=== PATIENT | male | born 1960 | race African-American/Black ===

== ENCOUNTER 2017-12-30 10:08 | Observation (INO) | payer MEDICARE ==
[2017-12-30] MEDS ORDERED: Nitroglycerin 2% Ointment 1 INCH/1 GM Packet ONE (10:33)
--- NOTE | 2017-12-30 11:02 | RAD ---
CHEST ONE VIEW: HISTORY: Chest pain. COMPARISON: 09/16/2016 FINDINGS: The cardiac silhouette is magnified and at the upper limits of normal in size. The pulmonary vascula ture is now engorged with bilateral perihilar infiltrates and peribronchial cuffing. No lobar consol idation or evidence of pneumothorax. IMPRESSION: 1. Pulmonary vascular congestion/borderline edema. 2. Borderline cardiomegaly. POS: [facility]
[2017-12-30 12:07] LABS: CKMB 3.7 ng/mL (0-6.6)
[2017-12-30 12:11] LABS: ALT (SGPT) 51 U/L (8-55); AST (SGOT) 34 U/L (5-34); Albumin 4.2 g/dL (3.5-5.0); Alkaline Phosphatase 76 U/L (40-150); Anion Gap 26 mmol/L (10-20); BUN (Urea Nitrogen) 99 mg/dL (8.4-25.7); Bilirubin, Total 0.7 mg/dL (0.2-1.2); CK (CPK) 102 U/L (30-200); Calc. Creatinine Clearance 0 mL/min (70-130); Calcium 9.2 mg/dL (7.8-10.44); Carbon Dioxide 19 mmol/L (22-29); Chloride 100 mmol/L (98-107); Estimated GFR-MDRD 4; Globulin 4.3 g/dL (2.4-3.5); Glucose 140 mg/dL (70-105); Lipase 76 U/L (8-78); Magnesium 2.1 mg/dL (1.6-2.6); Phosphorus 7.2 mg/dL (2.3-4.7); Potassium 5.8 mmol/L (3.5-5.1); Protein, Total 8.5 g/dL (6.0-8.3)
[2017-12-30 12:13] LABS: Base Excess-Venous -3.1 mmol/L (0 (+/- 2.5)); Bicarbonate (HCO3v) 22.7 mmol/L (1.0-85.0); CO2 Tension (PvCO2) 42.3 mmHg (41.0-51.0); Calcium, Ionized 0.96 mmol/L (1.12-1.32); Hemoglobin - Calc 11.5 g/dL (12.0-18.0); Lactate 1.21 mmol/L (0.50-2.20); O2 Tension (PvO2) 115.3 mmHg (35.0-45.0); Potassium 5.5 mmol/L (3.4-4.7); pH (Venous) 7.337 (7.35-7.45); vO2 Saturation-calc 98.2 % (94-98)
[2017-12-30 12:27] LABS: Sodium 139 mmol/L (136-145)
[2017-12-30] MEDS ORDERED: Furosemide 40 MG/4 ML VIAL ONE (12:33)
[2017-12-30 12:40] LABS: #Eosinphils 0.2 thou/uL (0.0-0.7); #Lymphocytes 1.8 thou/uL (1.20-3.40); #Monocytes 0.4 thou/uL (0.11-0.59); #Neutrophils 4.6 thou/uL (1.40-6.50); %Basophils 0.1 % (0.0-1.0); %Lymphocytes 25.1 % (21.0-51.0); %Monocytes 6.1 % (0.0-10.0); %Neutrophils 65.7 % (42.0-75.0); Hemoglobin 10.1 g/dL (14.0-18.0); Mean Corpuscular HGB CONC 31.4 g/dL (32.0-36.0); Mean Corpuscular Hemoglobin 29.9 pg (27.0-31.0); Mean Corpuscular Volume 95.4 fL (78.0-98.0); Platelet Count 182 thou/uL (130-400); RBC Distribution Width 15.5 % (11.5-14.5); Red Blood Cell (RBC) Count 3.37 mill/uL (4.70-6.10)
[2017-12-30 15:28] LABS: Troponin I 0.093 ng/mL (< 0.028)
[2017-12-30 15:42] LABS: HBSAg Index 0.43 S/CO (0-0.99); Hep B Surf Ag Non-Reactive S/CO (NonReactive)
[2017-12-30] MEDS ORDERED: HumaLOG 300 UNITS/3 ML VIAL SC PRN ×2 (17:21)
[2017-12-30] MEDS ORDERED: Dextrose 50% Abboject 50 ML SYRINGE SLOW IVP PRN (17:21)
[2017-12-30] MEDS ORDERED: cloNIDine 0.1 MG TAB PO PRN (17:21)
[2017-12-30] MEDS ORDERED: Mometasone/Formoterol 120 PUFF INHALER INH PRN (17:21)
[2017-12-30] MEDS ORDERED: Ondansetron ODT 4 MG TAB PO PRN (17:21)
[2017-12-30] MEDS ORDERED: Dextrose 5% in Water 1,000 ML IV PRN (17:21)
[2017-12-30] MEDS ORDERED: hydrALAZINE 20 MG/ML VIAL SLOW IVP PRN (17:21)
[2017-12-30] MEDS ORDERED: Acetaminophen 500 MG TAB PO PRN (17:21)
[2017-12-30] MEDS ORDERED: Ondansetron HCl/PF 4 MG/2 ML Vial IVP PRN (17:21)
[2017-12-30 18:10] LABS: Troponin I 0.095 ng/mL (< 0.028)
[2017-12-30 19:39] VITALS: BMI 31.8
--- NOTE | 2017-12-30 20:59 | HP ---
DATE OF ADMISSION: 12/30/2017 PRIMARY CARE PHYSICIAN: Dr. Berger with [facility]. PRIMARY LIFE AGENT: Lm Lo M.D. CHIEF COMPLAINT: Chest pain and shortness of breath. HISTORY OF PRESENT ILLNESS: This is a 57-year-old male with a known history of end- stage renal disease, on hemodialysis over the last 5 years, presenting with chest pain and shortness of breath in the last 48 hours. The patient states he underwent partial hemodialysis 2 days prior to this evaluation after apparently having obstruction or occlusion of his right upper extremity AV fis earnest. The patient states he underwent procedure to declot and open his graft proceeding with the com pletion of his hemodialysis; however, the total duration of hemodialysis were shortened. The patient admitted increased difficulty with breathing substernal chest tightness and subjective shortness of breath. The patient denied any specific fever, chills, recent trauma, injury or exposure history. T he patient states he has not missed any dialysis sessions over the last 5 years. The patient denied any increased lower extremity swelling, but did state the shortness of breath was worse when lying fl at. In the emergency room, the patient underwent general evaluation including chest imaging showing bilateral pulmonary edema. The patient received IV Lasix 80 mg x1 dose and transdermal nitroglycerin . The patient was transferred to dialysis unit for urgent hemodialysis. PAST MEDICAL HISTORY: 1. End-stage renal disease with hemodialysis Thursday, Thursday, and Thursday. 2. Hypertension. 3. Diabetes mellitus type 2. 4. Coronary artery disease, status post cardiac stent placement x10. 5. Bilateral cataracts. 6. Systolic congestive heart failure with ejection fraction of 35% range. PAST SURGICAL HISTORY: 1. Status post cardiac stent placement x10. 2. Status post right upper extremity AV fistula placement. 3. Status post right great toe amputation. 4. Status post right third through fifth toe amputations. CURRENT MEDICATIONS: Reviewed from previous admission in 2017. 1. Enteric coated aspirin 81 mg 1 tab p.o. daily. 2. Lipitor 40 mg p.o. daily. 3. Symbicort metered dose inhaler 160/4.5, 1-2 puffs daily. 4. Carvedilol 3.125 mg p.o. b.i.d. 5. Sensipar 1 tablet p.o. daily. 6. Gabapentin 300 mg p.o. t.i.d. 7. Regular insulin 9 units subcutaneously b.i.d. with meals. 8. Lisinopril 10 mg 1 tab p.o. daily. 9. Effient 10 mg p.o. daily. 10. Renvela 1 tablet p.o. t.i.d. 11. Protonix 40 mg 1 tab p.o. daily. ALLERGIES: PENICILLIN. FAMILY HISTORY: Positive for lung cancer in his mother. Multiple family members with diabetes frannie burroughs and hypertension. SOCIAL HISTORY: The patient is , residing in the [facility]. 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 REVIEW OF SYSTEMS: The following complete review of systems was negative, unless otherwise mentioned in the HPI or below: Constitutional: Weight loss or gain, ability to conduct usual activities. Skin: Rash, itching. Eyes: Double vision, pain. ENT/Mouth: Nose bleeding, neck stiffness, pain, tenderness. Cardiovascular: Palpitations, dyspnea on exertion, orthopnea. Respiratory: Shortness of breath, wheezing, cough, hemoptysis, fever or night sweats. Gastrointestinal: Poor appetite, abdominal pain, heartburn, nausea, vomiting, constipation, or diarrhea. Genitourinary: Urgency, frequency, dysuria, nocturia. Musculoskeletal: Pain, swelling. Neurologic/Psychiatric: Anxiety, depression. Allergy/Immunologic: Skin rash, bleeding tendency. PHYSICAL EXAMINATION: VITAL SIGNS: In the emergency room, blood pressure 150/90, pulse 90, respiratory rate 19, temperatur e 98.2 degrees Fahrenheit, O2 saturation 96% on room air. GENERAL APPEARANCE: This is a 57-year-old male currently receiving hemodialysis. A lert and oriented x3, in no acute distress. HEENT: Pupils are equal, round, and reactive to light and accommodation. Extraocular muscles are in tact. No scleral icterus. No conjunctival injection. Nares patent. OP is clear. Teeth in fair re pair. NECK: Supple, no cervical adenopathy, no thyromegaly, no carotid bruits, no JVD appreciated. Cervic al spine with full active and passive range of motion. No meningeal signs noted. CHEST: Few bibasilar crackles noted. CARDIOVASCULAR: S1, S2 without noted murmur, rub or gallop. ABDOMEN: Rounded, soft, nontender, nondistended. Bowel sounds are positive in all four quadrants. There is no hepatosplenomegaly, no abdominal bruits, no rebound or guarding appreciated. EXTREMITIES: Warm and dry with fair turgor. No clubbing, cyanosis or asymmetric edema appreciated. Pulses palpable distally at the dorsalis pedis, posterior tibial, and popliteal arteries bilaterally . Post-surgical changes noted in the right foot, consistent with prior surgical history. NEUROLOGIC: Cranial nerves II-XII are grossly intact. No focal or lateralizing signs appreciated. PERTINENT LABORATORY AND X-RAY FINDINGS: Sodium 139, potassium 5.8, chloride 100, CO2 of 19, BUN 99, creatinine 14.95. Estimated GFR of 3. Venous lactate 1.21, phosphorus 7.2. LFTs within normal orozco its. Troponin I ranged between 0.090-0.093. BNP 2471, previously noted 3092 on 09/12/2016. Lipase 76. CBC showed a white blood cell count of 7.0, hemoglobin 10, hematocrit 32, platelet count 182 wit h normal differential. Hepatitis B surface antigen nonreactive on 12/30/2017. Portable chest x-ray dated 12/30/2017, showed bilateral pulmonary edema. EKG dated on 12/30/2017, by my interpretation sh ows sinus mechanism with heart rates in the 90s. Normal R-wave progression noted in the precordial l mandeep. Normal axis. No acute ST-T wave changes appreciated. ASSESSMENT AND PLAN: 1. Acute pulmonary edema secondary to volume overload. The patient will be observed on the telemetr y unit. The patient's presentation in the context of end-stage renal disease with hemodialysis. We will continue urgent hemodialysis at the direction of the Nephrology Service. Continue serial pulmo nary exams. 2. End-stage renal disease with hemodialysis. We will continue hemodialysis as outlined in #1. The patient likely volume overloaded in the context of partial hemodialysis performed 48 hours prior to this evaluation. 3. Hyperkalemia. Continue hemodialysis as outlined in #1 and #2. 4. Serial potassium . 5. Elevated troponin I secondary to demand ischemia. The patient with longstanding chronic troponin I elevation. No current evidence to suggest acute coronary syndrome. We will continue home medicat ion regimen to include enteric-coated aspirin 81 mg daily. 6. Chronic systolic congestive heart failure. We will repeat 2D transthoracic echocardiogram with l ast reported echocardiogram in 2017. 7. Diabetes mellitus type 2. Insulin sliding scale for reflexive coverage. Confirm home diabetic r egimen. 8. Accu-Cheks a.c. and at bedtime. ADA diet. 9. Chest pain. Suspect secondary to acute volume overload as stated in #1. No current evidence to suggest acute coronary syndrome. We will continue supportive management and resume home medication r egimen including aspirin. 10. Prophylaxis. Sequential compression devices while in bed. Pepcid 20 mg p.o. b.i.d. 11. Code status is FULL. Surrogate medical decision maker is patient's spouse.
[2017-12-30] MEDS ORDERED: Famotidine 20 MG TAB PO SCH (21:00)
[2017-12-30] MEDS: Gabapentin 300 MG CAP PO SCH (21:26)
[2017-12-30] MEDS ORDERED: Midodrine HCl 5 MG TAB PO PRN (21:29)
[2017-12-30] MEDS: HYDROcodone/Acetaminophen 10/325 mg Tablet PO PRN (22:01)
[2017-12-31] MEDS: HYDROcodone/Acetaminophen 10/325 mg Tablet PO PRN (05:19)
--- NOTE | 2017-12-31 06:00 | CON ---
DATE OF CONSULTATION: 12/30/2017 CONSULTING PHYSICIAN: Lm Lo M.D. REQUESTING PHYSICIAN: Dr. Lambert with the ER. REASON FOR CONSULTATION: Need for emergency dialysis. IMPRESSION: 1. End-stage renal disease, hemodialysis dependent. 2. Hypervolemia in the context of missed dialysis on Thursday. 3. Acute respiratory failure related to #2 or both. 4. Hyperkalemia. PLAN: 1. Patient to be emergently dialyzed with ultrafiltration as tolerated by hemodynamics. 2. Patient counseled on the . HISTORY OF PRESENT ILLNESS: This is a 57-year-old gentleman with end-stage renal disease, hemodialys is dependent, who could not get dialysis on Thursday because of a clotted dialysis access. Therefore, the patient last got dialysis on Thursday of last week. Patient presented to the ED with shortness of breath and chest discomfort and was noted as per imaging studies to be pulmonary congested. As a res ult of this, decision has been taken to involve Renal in the management of this case. Patient now george s been admitted to undergo emergent hemodialysis. PAST MEDICAL HISTORY: Significant for end-stage renal disease, hemodialysis dependent, dyslipidemia, hypertension, coronary artery disease status post multiple stents, diabetes mellitus with diabetic n ephropathy, peripheral vascular disease. MEDICATIONS: Reviewed and as documented on [employer]. ALLERGIES: PENICILLIN. FAMILY HISTORY: No family history related to the presenting illness. REVIEW OF SYSTEMS: As documented in the body of the history. All the other systems were reviewed an d found not to be significantly related to presenting illness. PHYSICAL EXAMINATION: GENERAL: Patient was found to be in some respiratory distress, but hemodynamically stable. VITAL SIGNS: Afebrile. HEENT: Unremarkable. CARDIOVASCULAR SYSTEM: First and second heart sounds were heard. RESPIRATORY SYSTEM: Clear to auscultation anteriorly with rales at the bases. DIGESTIVE SYSTEM: Revealed a benign abdomen with positive bowel sounds. EXTREMITIES: No peripheral edema. SKIN: No new gross rash. LYMPHATICS: No peripheral lymphadenopathy. SUMMARY: A 57-year-old gentleman with end-stage renal disease, hemodialysis dependent, who presented here with shortness of breath, in need for emergency hemodialysis. Thank you for this consultation. We will follow with you.
[2017-12-31 06:23] LABS: ALT (SGPT) 53 U/L (8-55); AST (SGOT) 37 U/L (5-34); Albumin 3.9 g/dL (3.5-5.0); Alkaline Phosphatase 75 U/L (40-150); Anion Gap 17 mmol/L (10-20); BUN (Urea Nitrogen) 59 mg/dL (8.4-25.7); Bilirubin, Total 0.7 mg/dL (0.2-1.2); Calc. Creatinine Clearance 11 mL/min (70-130); Calcium 9.4 mg/dL (7.8-10.44); Carbon Dioxide 28 mmol/L (22-29); Chloride 96 mmol/L (98-107); Estimated GFR-MDRD 6; Glucose 235 mg/dL (70-105); Potassium 4.4 mmol/L (3.5-5.1); Protein, Total 7.9 g/dL (6.0-8.3); Sodium 137 mmol/L (136-145)
[2017-12-31 07:41] LABS: Eosinophils 3 % (0-10); Hemoglobin 9.7 g/dL (14.0-18.0); Lymphocytes 37 % (21-51); MDiff Complete? YES; Mean Corpuscular HGB CONC 31.6 g/dL (32.0-36.0); Mean Corpuscular Volume 94.8 fL (78.0-98.0); Mean Platelet Volume 7.7 fL (7.4-10.4); Monocytes 4 % (0-10); Neutrophil 55 % (42-75); PLT Morphology Comment Appears Adequate; Platelet Count 174 thou/uL (130-400); Polychromasia SLIGHT = 2-3 cells (100X) (0-2/hpf); RBC Distribution Width 15.4 % (11.5-14.5); Red Blood Cell (RBC) Count 3.22 mill/uL (4.70-6.10); White Blood Cell (WBC) Count 4.7 thou/uL (4.8-10.8)
[2017-12-31] MEDS ORDERED: Sevelamer Carbonate 800 MG TAB PO SCH (08:00)
[2017-12-31 08:27] VITALS: BP 91/50; TEMP 98.7
[2017-12-31] MEDS ORDERED: Aspirin 81 mg Enteric Coated Tablet PO SCH (09:00)
[2017-12-31] MEDS ORDERED: Prasugrel 10 MG TAB PO SCH (09:00)
[2017-12-31] MEDS ORDERED: Lisinopril 10 MG TAB PO SCH (09:00)
[2017-12-31] MEDS ORDERED: Atorvastatin Calcium 40 MG TAB PO SCH (09:00)
[2017-12-31] MEDS ORDERED: Metoclopramide HCl 10 MG TAB PO SCH (09:00)
[2017-12-31] MEDS ORDERED: Carvedilol 6.25 MG TAB PO SCH (09:00)
[2017-12-31] MEDS: Gabapentin 300 MG CAP PO SCH (09:00)
[2017-12-31] MEDS ORDERED: Cinacalcet HCl 30 MG TAB PO SCH (09:00)
[2017-12-31] MEDS ORDERED: HYDROcodone/Acetaminophen 5/325 mg Tablet PO SCH (09:30)
--- NOTE | 2017-12-31 14:03 | DIS ---
DATE OF DISCHARGE: 12/31/2017 DISCHARGE DISPOSITION: Home. FOLLOWUP: 1. Follow up with primary care physician, Dr. Berger in 1 week. 2. Follow up with Nephrology, Dr. Amato for maintenance hemodialysis. ALLERGIES: Patient is allergic to PENICILLIN V. DISCHARGE MEDICATIONS: Same as admission medication. No changes were made. BRIEF HOSPITAL COURSE: The patient is a 57-year-old male with end-stage renal disease on hemodialysis, hypertension, diabetes mellitus type 2, and coronary artery disease, presented to the emergency room with chest discomfort along with shortness of breath. His workup was consistent with pulmonary edema secondary to volume overload. He also was hyperkalemic. Please refer to the history and physical dated 12/30/[address] Zhong for further details. The patient was admitted to the hospital with the diagnosis of pulmonary edema with hyperkalemia. His potassium on admission was 5.8. His troponins were in the indeterminate range at 0.090. His symptoms improved after hemodialysis. He has been cleared by Nephrology for discharge. Echocardiogram has been ordered and pending at this time. The patient was advised to follow up with his primary sole conditioner for further optimization of his congestive heart failure. He appears stable for discharge. He will continue his aspirin, beta blockers and LYN inhibitor. Lifestyle modification was emphasized. FINAL DIAGNOSES: 1. Volume overload/pulmonary edema. 2. End-stage renal disease on hemodialysis. 3. Hyperkalemia. 4. Elevated troponin secondary to demand ischemia. 5. Chronic systolic heart failure. ACC stage C. Repeat echocardiogram pending at the time of discharge - PCP to follow. 6. Diabetes mellitus type 2. 7. Chronic pain syndrome. 8. Obesity with body mass index 32. 9. Chronic anemia secondary to renal insufficiency. [facility]
--- NOTE | 2017-12-31 14:41 | PRG ---
DATE OF SERVICE: 12/31/2017 SUBJECTIVE: The patient seen and examined today, feeling very well, very eager to go home. OBJECTIVE: VITAL SIGNS: Afebrile with temperature 98.6, pulse 86, respiratory of 16, O2 sat 94% with blood pres sure 95/53. HEENT: Unremarkable. CARDIOVASCULAR: First and second heart sounds were heard. RESPIRATORY: Clear to auscultation. DIGESTIVE: Revealed a benign abdomen with positive bowel sounds. EXTREMITIES: No peripheral edema. SKIN: No new gross rash. LYMPHATICS: No peripheral lymphadenopathy. LABORATORY INVESTIGATION: Showed a creatinine of 10.44, BUN of 59, potassium 4.4. IMPRESSION: 1. End-stage renal disease, on hemodialysis. 2. Acute respiratory failure in the context of . 3. Hypervolemia with fluid overload. PLAN: 1. From the renal standpoint, the patient is good for discharge and to continue with outpatient hemo dialysis tomorrow. 2. The patient has been counseled on the need to stay compliant with salt and fluid and avoid excess braydon fluid and salt intake.
== END 2017-12-31 11:33 | disposition home or self-care (01) ==
LOC: ERS 10:08 → 2SW 13:23
PROVIDERS: ADMIT Family Medicine; ATTEND Family Medicine
DX: I13.2 Hypertensive heart and chronic kidney disease with heart failure and with stage 5 chronic kidney disease, or end stage renal disease (principal); E11.22 Type 2 diabetes mellitus with diabetic chronic kidney disease; N18.6 End stage renal disease; I50.22 Chronic systolic (congestive) heart failure; E87.70 Fluid overload, unspecified; J81.0 Acute pulmonary edema; D63.1 Anemia in chronic kidney disease; I25.10 Atherosclerotic heart disease of native coronary artery without angina pectoris; E87.5 Hyperkalemia; G89.4 Chronic pain syndrome; E66.9 Obesity, unspecified; Z68.32 Body mass index [BMI] 32.0-32.9, adult; Z79.82 Long term (current) use of aspirin; Z79.4 Long term (current) use of insulin; Z79.899 Other long term (current) drug therapy; Z88.0 Allergy status to penicillin; Z95.5 Presence of coronary angioplasty implant and graft; Z99.2 Dependence on renal dialysis
CPT/HCPCS: 71045; 80053 ×2; 82330; 82435; 82550; 82553; 82565; 82803; 82947; 82962 ×2; 83605; 83690; 83735; 83880; 84100; 84132; 84295; 84484 ×2; 85007; 85014; 85025; 85027; 87340; 93005; 93306; 96374; 99285; G0378 ×2; 36415; 36416; 90935; G0257; J1940

== ENCOUNTER 2018-02-27 09:55 | Emergency (ER) | payer MEDICARE ==
[2018-02-27 11:00] LABS: Anion Gap 15 mmol/L (10-20); BUN (Urea Nitrogen) 32 mg/dL (8.4-25.7); Calc. Creatinine Clearance 0 mL/min (70-130); Calcium 9.3 mg/dL (7.8-10.44); Carbon Dioxide 31 mmol/L (22-29); Chloride 93 mmol/L (98-107); Estimated GFR-MDRD 6; Glucose 482 mg/dL (70-105); Potassium 3.8 mmol/L (3.5-5.1); Sodium 135 mmol/L (136-145)
[2018-02-27 11:41] LABS: Bilirubin Negative (Negative); Blood, Urine Small (Negative); Clarity CLEAR (Clear); Glucose, Urine (Dipstick) >=1000 mg/dL (Negative); Leukocyte Negative (Negative); Nitrite Negative (Negative); Protein, Urine (Dipstick) 100 mg/dL (Neg-Trace); Specific Gravity, Urine 1.014 (1.002-1.036); Urobilinogen 0.2 mg/dL (0.2-1.0); pH, Urine 8.5 (5.0-9.0)
[2018-02-27 11:42] LABS: Bacteria/HPF None Seen HPF (None Seen); Hyaline Casts/LPF 0-3 HYALINE CAST LPF (0-3 Hyaline); RBC/HPF None Seen HPF (0-3); Squamous Epithelial None Seen HPF (0-3); WBC/HPF None Seen HPF (0-3)
[2018-02-27] MEDS ORDERED: Insulin Regular 300 UNITS/3 ML VIAL ONE (11:53)
== END 2018-02-27 12:52 | disposition home or self-care (01) ==
LOC: ERS 09:55
DX: E10.65 Type 1 diabetes mellitus with hyperglycemia (principal); I10 Essential (primary) hypertension; Z79.899 Other long term (current) drug therapy; Z79.4 Long term (current) use of insulin; Z79.82 Long term (current) use of aspirin; Z79.891 Long term (current) use of opiate analgesic
CPT/HCPCS: 36415; 36416; 80048; 81003; 81015; 82010; 99284; J1815

== ENCOUNTER 2018-04-19 10:04 | Inpatient (IN) | payer MEDICARE ==
[2018-04-19 11:04] LABS: #Eosinphils 0.1 thou/uL (0.0-0.7); #Lymphocytes 1.8 thou/uL (1.20-3.40); #Monocytes 0.5 thou/uL (0.11-0.59); #Neutrophils 5.6 thou/uL (1.40-6.50); %Basophils 0.4 % (0.0-1.0); %Eosinophils 1.5 % (0.0-10.0); %Lymphocytes 22.7 % (21.0-51.0); %Monocytes 6.4 % (0.0-10.0); Hemoglobin 10.6 g/dL (14.0-18.0); Mean Corpuscular HGB CONC 32.1 g/dL (32.0-36.0); Mean Corpuscular Hemoglobin 30.3 pg (27.0-31.0); Mean Corpuscular Volume 94.4 fL (78.0-98.0); Mean Platelet Volume 8.4 fL (7.4-10.4); Platelet Count 172 thou/uL (130-400); RBC Distribution Width 14.7 % (11.5-14.5); Red Blood Cell (RBC) Count 3.48 mill/uL (4.70-6.10); White Blood Cell (WBC) Count 8.1 thou/uL (4.8-10.8)
[2018-04-19 11:25] LABS: ALT (SGPT) 13 U/L (8-55); AST (SGOT) 16 U/L (5-34); Albumin 4.1 g/dL (3.5-5.0); Alkaline Phosphatase 111 U/L (40-150); Anion Gap 24 mmol/L (10-20); BUN (Urea Nitrogen) 67 mg/dL (8.4-25.7); Calc. Creatinine Clearance 0 mL/min (70-130); Calcium 9.2 mg/dL (7.8-10.44); Carbon Dioxide 23 mmol/L (22-29); Chloride 95 mmol/L (98-107); Estimated GFR-MDRD 5; Globulin 3.6 g/dL (2.4-3.5); Glucose 227 mg/dL (70-105); Potassium 4.7 mmol/L (3.5-5.1); Protein, Total 7.7 g/dL (6.0-8.3); Sodium 137 mmol/L (136-145)
--- NOTE | 2018-04-19 12:09 | RAD ---
PORTABLE UPRIGHT FRONTAL CHEST RADIOGRAPH: Date: 04-19-18 Comparison: 12-30-17 History: Shortness of breath, dyspnea. FINDINGS: Prominence of the cardiac silhouette noted, stable. There is hazy increased perihilar and bibasilar d ensity suggesting interstitial and alveolar opacity. There is pulmonary vascular congestion. Blunting of the costophrenic angles may signify small bilateral pleural effusions. Detailed assessment is orozco ited secondary to body habitus and portable technique. IMPRESSION: Findings suspicious for pulmonary edema. Recommend PA and lateral imaging of the chest following nicole tment to document resolution. Infectious pneumonitis cannot be excluded. POS: OFF
[2018-04-19 12:10] LABS: CKMB 1.5 ng/mL (0-6.6)
[2018-04-19] MEDS ORDERED: Benzonatate 100 MG CAP PO PRN (13:30)
[2018-04-19] MEDS ORDERED: Acetaminophen 325 MG TAB PO PRN (13:30)
[2018-04-19] MEDS ORDERED: Ondansetron PF 4 MG/2 ML Vial IVP PRN ×2 (13:30)
[2018-04-19] MEDS ORDERED: Nitroglycerin 0.4 MG TAB (25 Tab Bottle) SL PRN (13:30)
[2018-04-19] MEDS ORDERED: Loratadine 10 MG TAB PO PRN (13:30)
[2018-04-19] MEDS ORDERED: Diabetic Tussin 200 MG/10 ML UDCUP PO PRN (13:30)
[2018-04-19] MEDS ORDERED: Senokot S 8.6-50 MG TAB PO PRN (13:30)
[2018-04-19] MEDS ORDERED: Calcium Carbonate 500 MG ChewTAB PO PRN (13:30)
[2018-04-19] MEDS ORDERED: cloNIDine 0.1 MG TAB PO PRN (13:30)
[2018-04-19] MEDS ORDERED: Acetaminophen 500 MG TAB PO PRN (13:30)
[2018-04-19] MEDS ORDERED: Bisacodyl 5 MG TAB PO PRN (13:30)
[2018-04-19] MEDS ORDERED: hydrALAZINE 20 MG/ML VIAL SLOW IVP PRN (13:30)
[2018-04-19] MEDS ORDERED: Sodium Chloride 0.65% Nasal 44 ML BOT EA NARE PRN (13:30)
[2018-04-19 14:18] LABS: Troponin I 0.059 ng/mL (< 0.028)
[2018-04-19 15:00] LABS: HBSAg Index 0.19 S/CO (0-0.99); Hep B Surf Ag Non-Reactive S/CO (NonReactive)
--- NOTE | 2018-04-19 16:55 | HP ---
PRIMARY CARE PHYSICIAN: Dr. Chris Berger at [facility]. CHIEF COMPLAINT: Shortness of breath since this morning. He also complains of dry heaving and gagging for multiple days, which is worse, but it also is rather chronic. HISTORY OF PRESENTING ILLNESS: Mr. Alexander is a very pleasant 57-year-old male with past medical history of end-stage renal disease, on hemodialysis, Thursday, Thursday, and Thursday, who is compliant with his dialysis schedule as well as history of coronary artery disease and stenting multiple times and diabetes mellitus, who presented to the emergency room with above-mentioned complaint. History is mainly obtained by the patient himself and electronic medical records have been reviewed. He was last admitted to our facility 3 months ago in December 2017 and was treated for volume overload. He reports that his last hemodialysis was scheduled this past Thursday, today being Thursday, and he did undergo it as scheduled. He woke up this morning, feeling very short of breath. His main complaint, however, is also gagging and dry heaving. He reports that he needs treatment for this. His paper box maker, Dr. Lo, has started him on Reglan about a week ago, but it has not helped with the symptoms. He was using Zofran excessively. He denies any fever, chills, cough, sore throat, or rhinorrhea. Denies any chest pain. He has a chronic wound in his right foot, status post amputation last year for which he follows up with wound care through home health. Upon presentation to the emergency room, he was somewhat hypoxic with oxygen saturation in the low 90s upon arrival. It improved with use of BiPAP briefly. Since then, he has been taken off BiPAP and is doing much better. He was found to be having some wheezing and received multiple nebulizers, magnesium, and IV steroids in the ER. Nephrology has been consulted for maintenance hemodialysis. His BNP is elevated around 2600 with chronic elevation of cardiac enzymes in borderline range. His BNP seems to be chronically elevated. PAST MEDICAL HISTORY: 1. End-stage renal disease, on hemodialysis. 2. History of coronary artery disease, status post stenting x10. 3. Diabetes mellitus type 2. 4. Chronic systolic congestive heart failure, ACC class C, ejection fraction as per the echo done in December 2017 40% to 45% with severe left atrial dilatation and hypokinesis. PAST SURGICAL HISTORY: 1. Cardiac stent placement x10. 2. Right upper extremity AV fistula placement. 3. Right great toe amputation. 4. Right 3rd through 5th toe amputation. ALLERGIES: PENICILLIN. FAMILY HISTORY: Lung cancer in his mother. Multiple family members with diabetes and hypertension. SOCIAL HISTORY: He is and lives locally. No history of drug, tobacco, or alcohol abuse. HOME MEDICATIONS: As per the ER record, he is on following medications, 1. Atorvastatin 80 mg daily. 2. Aspirin 81 mg daily. 3. Novolin 3 units b.i.d. 4. Effient 10 mg daily. 5. Protonix 40 mg daily. 6. Reglan 5 mg three times a day. 7. Albuterol p.r.n. 8. DuoNeb p.r.n. 9. Symbicort b.i.d. 10. Carvedilol 3.125 mg b.i.d. 11. Keflex daily after dialysis. 12. Gabapentin 300 mg daily. 13. Midodrine 5 mg as needed for blood pressure lower than 110. REVIEW OF SYSTEMS: A 12-point review of system is done and is negative except for those mentioned in the history and physical. LABORATORY DATA: CBC shows hemoglobin of 10.6, which is baseline. Serum chemistry showed chloride of 95, anion gap 24, BUN 67, and creatinine of 12.35. Blood sugar 227. Troponin 0.057. BNP 2649. DIAGNOSTIC DATA: Chest x-ray by my review did not show any significant infiltrate. Mild pulmonary edema is noticed. PHYSICAL EXAMINATION: VITAL SIGNS: Upon presentation, blood pressure 150/113, pulse of 103, respirations 34, temperature 97.9, and saturating 100% face mask. Most recent blood pressure 145/88 and saturating 98% on room air. GENERAL: The patient is seen and examined in hemodialysis unit. He is in no acute distress. He is awake, alert, and oriented x3. HEENT: Mucous membrane is moist and pink. No oropharyngeal exudate or erythema. Head is normocephalic and atraumatic. Pupils are equal and reactive to light and accommodation. Extraocular movement intact. NECK: Supple without any lymphadenopathy, JVD, or bruit. CHEST: Clear to auscultation without any wheezing, rales, or rhonchi. Rhythm is regular without any murmurs, rubs, or gallops. ABDOMEN: Soft, nontender, and nondistended with positive bowel sounds. EXTREMITIES: Showed no edema. He has well-healing right toe amputation, which is currently under dressing. NEUROLOGICAL: Nonfocal. PSYCHIATRIC: Normal affect. IMPRESSION AND PLAN: 1. Acute hypoxic respiratory failure, likely multifactorial with mild fluid overload as well as chronic obstructive pulmonary disease exacerbation. He will be treated with IV steroids, long-acting inhaled steroids with bronchodilators, as well as nebulizers. Fluid removal as tolerated with hemodialysis. 2. Chronic nausea. The patient definitely has gastroparesis. His last EGD was in September 2016, which was consistent with retained food material in the esophagus. We will request consultation with Gastroenterology once again for possibly repeat esophagogastroduodenoscopy. At this time, he will be treated with IV Reglan as well as IV proton pump inhibitors. 3. Acute on chronic kidney disease. Maintenance hemodialysis has been started. We will avoid any nephrotoxic medications. 4. Coronary artery disease. Restart home medications as dictated above including aspirin, statin, and beta-michaela. 5. History of chronic obstructive pulmonary disease as above. 6. Diabetes mellitus. We will start him on insulin sliding scale and reconcile home medications with frequent Accu-Cheks. 7. Morbid obesity. 8. Deep venous thrombosis and gastrointestinal prophylaxis and p.r.n. medication orders. DISPOSITION: Mr. Alexander is currently being admitted to the hospital with acute hypoxic respiratory failure. He has been stabilized and weaned off the BiPAP for now. Estimated length of stay at this time is at least 2 to 3 midnights. Further management will depend upon his clinical course. Job ID: [id number]
[2018-04-19] MEDS ORDERED: Carvedilol 6.25 MG TAB PO SCH (17:00)
[2018-04-19] MEDS ORDERED: Pantoprazole 40 MG VIAL IVP SCH (17:30)
[2018-04-19] MEDS: Mometasone/Formoterol 120 PUFF INHALER INH SCH (19:22)
[2018-04-19] MEDS ORDERED: Prasugrel 10 MG TAB PO SCH (21:00)
[2018-04-19] MEDS ORDERED: Atorvastatin Calcium 40 MG TAB PO SCH (21:00)
[2018-04-19] MEDS ORDERED: Carvedilol 3.125 MG TAB PO SCH (21:30)
[2018-04-19] MEDS: Famotidine 20 MG TAB PO SCH (21:53)
[2018-04-19] MEDS: guaiFENesin ER 600 MG TAB PO SCH (21:54)
[2018-04-19] MEDS: Heparin 5,000 UNITS/ML VIAL SC SCH (21:54)
[2018-04-19] MEDS: HYDROcodone/Acetaminophen 10/325 mg Tablet PO PRN (22:03)
[2018-04-19] MEDS ORDERED: HumaLOG 300 UNITS/3 ML VIAL SC PRN ×2 (22:25)
[2018-04-19] MEDS ORDERED: Dextrose 5% in Water 1,000 ML IV PRN (22:25)
[2018-04-19] MEDS ORDERED: Dextrose 50% Abboject 50 ML SYRINGE IVP PRN (22:25)
[2018-04-19] MEDS ORDERED: Insulin Regular 300 UNITS/3 ML VIAL SC PRN (22:26)
[2018-04-19 23:28] VITALS: BMI 32.3
--- NOTE | 2018-04-20 01:54 | CON ---
DATE OF CONSULTATION: 04/19/2018 CONSULTING PHYSICIAN: Lm Lo MD REQUESTING PHYSICIAN: Isis Desir MD REASON FOR CONSULTATION: Need for maintenance hemodialysis. IMPRESSION: 1. End-stage renal disease, hemodialysis dependent Thursday, Thursday and Thursday, due for dialysis today. 2. Nausea, vomiting, query cause. 3. Respiratory distress in the context of fluid overload. PLAN: 1. Dialyze this patient with ultrafiltration as tolerated by hemodynamics. 2. Further management to be dependent on the clinical course. HISTORY OF PRESENT ILLNESS: A 57-year-old dialysis patient who presented with shortness of breath, nausea, vomiting, and due for dialysis today. The need for maintenance hemodialysis necessitated this renal consultation. PAST MEDICAL HISTORY: Significant for end-stage renal disease on dialysis, coronary artery disease status post multiple stents, type 2 diabetes, chronic systolic congestive heart failure. MEDICATIONS: Reviewed and as documented on ASSET4. ALLERGIES: TO PENICILLIN. FAMILY HISTORY: Significant for diabetes mellitus. SOCIAL HISTORY: . No alcohol. No tobacco or illicit drug use. REVIEW OF SYSTEMS: As documented in the body of history. All the other systems were reviewed and found not to be significantly related to presenting illness. PHYSICAL EXAMINATION: GENERAL: On examination in the ER, the patient was noted to be in no respiratory distress on face mask, hemodynamically stable, afebrile. HEENT: Unremarkable. CARDIOVASCULAR SYSTEM: First and second heart sounds were heard. RESPIRATORY SYSTEM: Revealed rales. DIGESTIVE SYSTEM: Revealed a benign abdomen. EXTREMITIES: No peripheral edema. SKIN: No new gross rash. LYMPHATICS: No peripheral lymphadenopathy. SUMMARY: A 57-year-old gentleman with end-stage renal disease, hemodialysis dependent, who presented here with nausea, vomiting and shortness of breath. Thank you for this consultation. We will follow with you. Job ID: [id number]
[2018-04-20 05:57] LABS: #Lymphocytes 0.7 thou/uL (1.20-3.40); #Monocytes 0.3 thou/uL (0.11-0.59); #Neutrophils 6.2 thou/uL (1.40-6.50); %Basophils 0.1 % (0.0-1.0); %Eosinophils 0.2 % (0.0-10.0); %Monocytes 3.9 % (0.0-10.0); %Neutrophils 85.8 % (42.0-75.0); Hemoglobin 10.3 g/dL (14.0-18.0); Mean Corpuscular HGB CONC 32.8 g/dL (32.0-36.0); Mean Corpuscular Volume 94.4 fL (78.0-98.0); Mean Platelet Volume 8.5 fL (7.4-10.4); Platelet Count 163 thou/uL (130-400); RBC Distribution Width 14.6 % (11.5-14.5); Red Blood Cell (RBC) Count 3.34 mill/uL (4.70-6.10); White Blood Cell (WBC) Count 7.2 thou/uL (4.8-10.8)
[2018-04-20] MEDS: Insulin Regular 300 UNITS/3 ML VIAL SC PRN ×2 (05:58→11:07)
[2018-04-20 06:15] LABS: Anion Gap 17 mmol/L (10-20); BUN (Urea Nitrogen) 46 mg/dL (8.4-25.7); Calc. Creatinine Clearance 13 mL/min (70-130); Calcium 9.5 mg/dL (7.8-10.44); Carbon Dioxide 28 mmol/L (22-29); Chloride 93 mmol/L (98-107); Estimated GFR-MDRD 8; Glucose 377 mg/dL (70-105); Potassium 4.6 mmol/L (3.5-5.1); Sodium 133 mmol/L (136-145)
[2018-04-20] MEDS: Mometasone/Formoterol 120 PUFF INHALER INH SCH (07:35)
[2018-04-20] MEDS: HYDROcodone/Acetaminophen 10/325 mg Tablet PO PRN (07:47)
[2018-04-20] MEDS: guaiFENesin ER 600 MG TAB PO SCH (07:48)
[2018-04-20] MEDS: Heparin 5,000 UNITS/ML VIAL SC SCH (07:48)
[2018-04-20] MEDS: Famotidine 20 MG TAB PO SCH (07:48)
[2018-04-20] MEDS ORDERED: Carvedilol 3.125 MG TAB PO SCH (08:00)
[2018-04-20] MEDS ORDERED: Aspirin 81 mg Enteric Coated Tablet PO SCH (09:00)
[2018-04-20] MEDS ORDERED: Pantoprazole 40 MG VIAL IVP SCH (09:00)
[2018-04-20 15:07] VITALS: BP 111/59; TEMP 97.6
--- NOTE | 2018-04-20 18:32 | CON ---
DATE OF CONSULTATION: TYPE OF CONSULTATION: GI. REASON FOR CONSULT: History of gastroparesis and nausea and vomiting. HISTORY OF PRESENT ILLNESS: Mr. Alexander is a 57-year-old Afro-[place]ian male, who was admitted to the hospital yesterday. He presented to the emergency room with complaints of shortness of breath and chest tightness and nausea. He tried a breathing treatment at home and this did not help. He was given Solu-Medrol, magnesium, and Zofran by EMS and DuoNebs. He had 93% O2 saturation when he was picked up by EMS and was 99% after those interventions. In the emergency room, he complained of shortness of breath and cough and chest tightness. He had nausea, but no vomiting that day. He does have a history of gastroparesis and recently been started on some Reglan by his pattern drafter. Apparently, gets nauseated on dialysis often. He has a significant history of coronary artery disease with some heart failure and also multiple cardiac stents. He has had peripheral vascular disease with toe amputations, most recently in July 2017. He also takes chronic narcotics every 6 hours. He takes Vicodin for chronic back pain. He denies any hematemesis, melena, or hematochezia. He denies any fever. He denies any abdominal pain. He states he feels much better now. Apparently when he came in, he had a BNP of 2600. That is about midline for when he comes in with shortness of breath. He states he is feeling much better now. He did have some cardiac enzymes with troponin 0.059. He reports he sees Dr. Berger at [facility] as primary care physician. He is also seeing the gastrologist over there at times as well. Previous workup here for his gastroparesis has included an EGD with Dr. Arthur, 09/21/2016, when he had a similar presentation. At that time, he had stomach, some gastritis, which was biopsied and showed H. pylori, this was treated in the outpatient per the patient, and he has had a colonoscopy in 2014 with a small diminutive polyp. He denies any bleeding or blood in the stool. PAST MEDICAL HISTORY: 1. End-stage renal disease on dialysis. 2. Coronary artery disease, previous stenting. The chart indicates x10. 3. Diabetes type 2. 4. Chronic systolic congestive heart failure, class C, EF 40% to 45% with severe left atrial dilatation and hypokinesis in the past. 5. Chronic pain syndrome. PAST SURGICAL HISTORY: Cardiac stents, right upper extremity AV fistula, right great toe amputation, EGD in 2017, there is no history of gallbladder surgery. SOCIAL HISTORY: The patient has alcohol and drug use. He states he does not drink alcohol since 2011. ALLERGIES: PENICILLIN. MEDICATIONS: Here in the hospital; 1. Tylenol. 2. DuoNeb. 3. Lipitor. 4. Tessalon. 5. Dulcolax. 6. Tums. 7. Coreg. 8. Catapres. 9. Pepcid. 10. Glucagon. 11. Mucinex. 12. Heparin. 13. Naprosyn. 14. Milldale. 15. Insulin sliding scale. 16. Ranitidine. 17. Solu-Medrol. 18. Dulera. 19. Nitroglycerin. 20. Zofran. 21. Protonix 40 IV daily. 22. Effient. 23. Senokot. Home medications; 1. Renvela. 2. Effient. 3. Protonix. 4. Zofran ODT. 5. Midodrine. 6. Reglan 10 q.8. 7. Humulin. 8. Hydrocodone 1 q.6. 9. Gabapentin. 10. Sensipar. 11. Coreg. 12. Budesonide inhaler. 13. Multivitamin. 14. Lipitor. REVIEW OF SYSTEMS: The patient denies any dysphagia or odynophagia. He denies any sore throat or thrush. Denies weight loss. Denies fever, chills, melena, hematochezia, hematemesis, abdominal pain, change in bowel function. Respiratory and cardiac review of systems as per HPI. Extremities as per HPI. PHYSICAL EXAMINATION: VITAL SIGNS: Temperature is 97.9, pulse 103, and blood pressure is 131/75. GENERAL: He is resting comfortably in bed. He is eating pancakes. LUNGS: Clear. HEART: Regular rate and rhythm without rubs or murmurs. ABDOMEN: Soft and nontender. There is no rebound. There is no guarding. LABORATORY STUDIES: White count 7.2, hemoglobin 10.3, and platelet count 163. Sodium 133, potassium 4.6, bicarb 93, BUN and creatinine 46 and 8.59, and glucose 337. Liver function tests normal. Albumin 4.1 and protein 7.7. BNP 2649. TSH is 1.7. Cortisol is 10. Chest x-ray on 04/19/2018, showed pulmonary edema. ASSESSMENT: 1. Chronic gastroparesis related to poorly controlled diabetes, medications, heart failure, and narcotic use. 2. History of Helicobacter pylori on esophagogastroduodenoscopy in 2017, treated. 3. Admission for heart failure. Recommendations presently the patient is eating at the bedside with no difficulty. He is eating pancakes syrup and sausage. He has no findings to suggest dehydration. There is no overt oral thrush. RECOMMENDATIONS: 1. I think he does not need to take both PPI and H2 michaela, we can stop the H2 michaela. 2. Treat gastroparesis symptomatically with low-dose Reglan as needed. If it to become worse, he could be treated with a liquid diet and erythromycin. 3. As for his H. pylori, a stool antigen could be checked in the outpatient setting to document that is resolved. 4. I think attendant of his gastroparesis is his chronic narcotic use as long as he stays on the Vicodin. He is going to have issues with nausea and vomiting and his gastroparesis. It may be reasonable in the outpatient setting for him to be sent to see pain medicine, see if he can get off these medications. There is nothing that counteract that effect. 5. With regard to his narcotic use, he needs to be on a bowel regimen with MiraLAX and senna daily. 6. We will sign off at this point in time, as the patient has no active nausea or vomiting, eating without difficulty, be reasonable for him to get further education with gastroparesis diet from dietitian if he is going to stay in the hospital. We will follow from a distance. Please re-consult if needed. Job ID: [id number]
== END 2018-04-20 15:31 | disposition home health service (06) | DRG 73 ==
LOC: ERS 10:04 → ERHOLD 13:31 → 2NO 20:57
PROVIDERS: ADMIT Internal Medicine; ATTEND Internal Medicine
PROC: 5A09357 Assistance with Respiratory Ventilation, Less than 24 Consecutive Hours, Continuous Positive Airway Pressure (ICD-10-PCS; principal; 2018-04-19)
PROC: 5A1D70Z Performance of Urinary Filtration, Intermittent, Less than 6 Hours Per Day (ICD-10-PCS; 2018-04-19)
DX: E11.43 Type 2 diabetes mellitus with diabetic autonomic (poly)neuropathy (principal); J96.01 Acute respiratory failure with hypoxia; N18.6 End stage renal disease; I13.2 Hypertensive heart and chronic kidney disease with heart failure and with stage 5 chronic kidney disease, or end stage renal disease; I50.22 Chronic systolic (congestive) heart failure; N17.9 Acute kidney failure, unspecified; E87.70 Fluid overload, unspecified; E11.22 Type 2 diabetes mellitus with diabetic chronic kidney disease; Z99.2 Dependence on renal dialysis; Z79.4 Long term (current) use of insulin; I25.10 Atherosclerotic heart disease of native coronary artery without angina pectoris; Z95.5 Presence of coronary angioplasty implant and graft; E11.621 Type 2 diabetes mellitus with foot ulcer; L97.519 Non-pressure chronic ulcer of other part of right foot with unspecified severity; Z89.411 Acquired absence of right great toe; Z89.421 Acquired absence of other right toe(s); Z88.0 Allergy status to penicillin; Z79.82 Long term (current) use of aspirin; K31.84 Gastroparesis; Z68.32 Body mass index [BMI] 32.0-32.9, adult; E66.9 Obesity, unspecified; E11.51 Type 2 diabetes mellitus with diabetic peripheral angiopathy without gangrene; M54.9 Dorsalgia, unspecified; G89.29 Other chronic pain; E11.65 Type 2 diabetes mellitus with hyperglycemia; J44.9 Chronic obstructive pulmonary disease, unspecified
CPT/HCPCS: 36415; 36416; 71045; 80048; 80053; 82553; 83880; 84484; 85025; 87340; 93005; 94640; 94660; C9113; J1644; J1815; J2920; J7620

== ENCOUNTER 2018-04-26 08:03 | Emergency (ER) | payer MEDICARE ==
[2018-04-26 09:11] LABS: #Eosinphils 0.1 thou/uL (0.0-0.7); #Lymphocytes 0.9 thou/uL (1.20-3.40); #Monocytes 0.7 thou/uL (0.11-0.59); #Neutrophils 10.4 thou/uL (1.40-6.50); %Basophils 0.2 % (0.0-1.0); %Eosinophils 0.8 % (0.0-10.0); %Lymphocytes 7.7 % (21.0-51.0); %Monocytes 5.6 % (0.0-10.0); %Neutrophils 85.8 % (42.0-75.0); Hemoglobin 10.4 g/dL (14.0-18.0); Mean Corpuscular Hemoglobin 30.4 pg (27.0-31.0); Mean Corpuscular Volume 94.9 fL (78.0-98.0); Mean Platelet Volume 8.2 fL (7.4-10.4); Platelet Count 191 thou/uL (130-400); RBC Distribution Width 15.5 % (11.5-14.5); Red Blood Cell (RBC) Count 3.44 mill/uL (4.70-6.10); White Blood Cell (WBC) Count 12.1 thou/uL (4.8-10.8)
[2018-04-26] MEDS ORDERED: Morphine 4 MG/ML VIAL ONE ×2 (09:35→12:18)
[2018-04-26] MEDS ORDERED: Ondansetron PF 4 MG/2 ML Vial ONE (09:35)
[2018-04-26 09:39] LABS: ALT (SGPT) 16 U/L (8-55); AST (SGOT) 14 U/L (5-34); Alkaline Phosphatase 103 U/L (40-150); Anion Gap 24 mmol/L (10-20); BUN (Urea Nitrogen) 77 mg/dL (8.4-25.7); Bilirubin, Total 1.1 mg/dL (0.2-1.2); Calc. Creatinine Clearance 0 mL/min (70-130); Calcium 9.1 mg/dL (7.8-10.44); Carbon Dioxide 23 mmol/L (22-29); Chloride 96 mmol/L (98-107); Estimated GFR-MDRD 4; Globulin 3.7 g/dL (2.4-3.5); Glucose 195 mg/dL (70-105); Lipase 67 U/L (8-78); Potassium 4.6 mmol/L (3.5-5.1); Protein, Total 7.7 g/dL (6.0-8.3); Sodium 138 mmol/L (136-145)
--- NOTE | 2018-04-26 09:45 | RAD ---
PORTABLE CHEST: DATE: 04/26/2018. TIME: 8:33 a.m. HISTORY: Cough. Patient on dialysis. FINDINGS: Comparison is made with the exam of 04/19/2018. The heart is enlarged. There is pulmonary vascular congestion with bibasilar infiltrates and accompa nying small effusions. No pneumothoraces are seen. POS: H
[2018-04-26 09:54] LABS: CKMB 1.7 ng/mL (0-6.6)
[2018-04-26 12:16] LABS: Troponin I 0.104 ng/mL (< 0.028)
== END 2018-04-26 13:43 | disposition home or self-care (01) ==
LOC: ERS 08:03
DX: R07.9 Chest pain, unspecified (principal); R10.812 Left upper quadrant abdominal tenderness; I12.9 Hypertensive chronic kidney disease with stage 1 through stage 4 chronic kidney disease, or unspecified chronic kidney disease; N18.9 Chronic kidney disease, unspecified; E11.22 Type 2 diabetes mellitus with diabetic chronic kidney disease; Z99.2 Dependence on renal dialysis
CPT/HCPCS: 36415; 71045; 80053; 82553; 83690; 84484; 85025; 93005; 94760; 96374; 96375; 96376; J2270; J2405

== ENCOUNTER 2018-07-26 09:45 | Observation (INO) | payer MEDICARE ==
--- NOTE | 2018-07-26 10:14 | RAD ---
PORTABLE CHEST 1 VIEW: DATE: 07/26/2018. TIME: 9:59 a.m. HISTORY: Chest pain. FINDINGS: Comparison is made with the exam of 04/26/2018. The heart is enlarged. There is pulmonary vascular c ongestion with small pleural effusions and bibasilar infiltrate/atelectatic changes. No pneumothorac es are seen. POS: [facility]
[2018-07-26 11:38] LABS: CKMB 1.6 ng/mL (0-6.6)
[2018-07-26 12:25] LABS: #Eosinphils 0.1 thou/uL (0.0-0.7); #Lymphocytes 1.6 thou/uL (1.20-3.40); #Monocytes 0.5 thou/uL (0.11-0.59); #Neutrophils 6.5 thou/uL (1.40-6.50); %Basophils 0.1 % (0.0-1.0); %Eosinophils 1.4 % (0.0-10.0); %Lymphocytes 18.5 % (21.0-51.0); Hemoglobin 10.1 g/dL (14.0-18.0); Mean Corpuscular HGB CONC 32.5 g/dL (32.0-36.0); Mean Corpuscular Hemoglobin 30.7 pg (27.0-31.0); Mean Corpuscular Volume 94.7 fL (78.0-98.0); Mean Platelet Volume 7.7 fL (7.4-10.4); Platelet Count 210 thou/uL (130-400); RBC Distribution Width 17.2 % (11.5-14.5); Red Blood Cell (RBC) Count 3.27 mill/uL (4.70-6.10); White Blood Cell (WBC) Count 8.8 thou/uL (4.8-10.8)
[2018-07-26 12:38] LABS: ALT (SGPT) 16 U/L (8-55); AST (SGOT) 17 U/L (5-34); Albumin 3.9 g/dL (3.5-5.0); Alkaline Phosphatase 86 U/L (40-150); Anion Gap 17 mmol/L (10-20); BUN (Urea Nitrogen) 48 mg/dL (8.4-25.7); Bilirubin, Total 1.1 mg/dL (0.2-1.2); CK (CPK) 84 U/L (30-200); Calc. Creatinine Clearance 0 mL/min (70-130); Calcium 8.3 mg/dL (7.8-10.44); Carbon Dioxide 29 mmol/L (22-29); Chloride 97 mmol/L (98-107); Estimated GFR-MDRD 5; Globulin 3.5 g/dL (2.4-3.5); Glucose 117 mg/dL (70-105); Potassium 5.1 mmol/L (3.5-5.1); Protein, Total 7.4 g/dL (6.0-8.3); Sodium 138 mmol/L (136-145)
[2018-07-26] MEDS ORDERED: ISOVUE-370 76%-LOCM 1 ML ONE (15:14)
[2018-07-26 15:17] LABS: Troponin I 0.082 ng/mL (< 0.028)
[2018-07-26 17:12] LABS: Troponin I 0.088 ng/mL (< 0.028)
[2018-07-26] MEDS ORDERED: Nitroglycerin 0.4 MG TAB (25 Tab Bottle) PO PRN (17:47)
[2018-07-26] MEDS ORDERED: Ondansetron ODT 8 MG TAB SL PRN (18:01)
[2018-07-26] MEDS ORDERED: HYDROcodone/Acetaminophen 10/325 mg Tablet PO PRN (18:01)
[2018-07-26] MEDS ORDERED: Midodrine HCl 5 MG TAB PO PRN (18:01)
[2018-07-26] MEDS ORDERED: PROVENTIL INHALER 6.7 G (200 INHALATIONS) INH PRN (18:01)
[2018-07-26] MEDS ORDERED: HumaLOG 300 UNITS/3 ML VIAL SC PRN (18:01)
[2018-07-26] MEDS ORDERED: Dextrose 50% Abboject 50 ML SYRINGE SLOW IVP PRN (18:01)
[2018-07-26] MEDS ORDERED: Dextrose 5% in Water 1,000 ML IV PRN (18:01)
[2018-07-26] MEDS ORDERED: Mometasone/Formoterol 120 PUFF INHALER INH PRN (18:30)
--- NOTE | 2018-07-26 18:37 | HP ---
PRIMARY CARE PROVIDER: Dr. Berger. JOURNEYMAN OPERATOR ASSISTANT: Dr. Bates. CHIEF COMPLAINT: Chest pain. HISTORY OF PRESENT ILLNESS: Mr. Alexander is a pleasant 57-year-old gentleman, who was seen at [facility] on July 26, 2018. He reports that today morning he developed chest pain. He describes it as being in the lower retrosternal and adjacent region, made worse with coughing, accompanied by shortness of breath, not accompanied by dizziness. 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 Reports that the pain is now resolved. REVIEW OF SYSTEMS: All other systems reviewed and found to be negative. PAST MEDICAL HISTORY: End-stage renal disease, on hemodialysis Thursday, Thursday, and Thursday; coronary artery disease, status post PCI with multiple stents; and diabetes mellitus type 2. PAST SURGICAL HISTORY: Bilateral cataract surgery, PCI with coronary stents x10, left forearm dialysis access, right great toe amputation, and right 3rd to 5th toes amputation. PSYCHIATRIC HISTORY: Anxiety. SOCIAL HISTORY: The patient denies tobacco use, alcohol use, or recreational drug use. FAMILY HISTORY: The patient reports lung cancer in his mother. He reports multiple family members with diabetes mellitus and hypertension. ALLERGIES: PENICILLIN. CURRENT MEDICATIONS: 1. Atorvastatin 80 mg daily. 2. Aspirin 81 mg daily. 3. Novolin R 3 units 2 times a day. 4. Effient 10 mg daily. 5. Pantoprazole 40 mg daily. 6. Reglan 5 mg three times a day. 7. DuoNeb p.r.n. 8. Albuterol inhalation p.r.n. 9. Symbicort two puffs two times a day. 10. Coreg 3.125 mg 2 times a day. 11. Keflex 500 mg one capsule after dialysis. 12. Gabapentin 300 mg capsules, 1 to 3 capsules daily as needed. 13. Midodrine 5 mg p.r.n. for systolic blood pressure less than 110. PHYSICAL EXAMINATION: GENERAL: On examination, Mr. Alexander is awake and alert, not in acute distress. VITAL SIGNS: Blood pressure is 110/70, pulse 96, respiratory rate 18, and oxygen saturation 100% on 3 L of oxygen. He is afebrile. EYES: No scleral icterus, no conjunctival pallor. ENT: Moist mucosal membranes. No oropharyngeal erythema or exudates. NECK: Supple, nontender, trachea is midline. RESPIRATORY: Accessory muscles of breathing are not active. Chest wall movements are symmetric bilaterally. LUNGS: Clear to auscultation without wheeze, rhonchi, or crepitations. CARDIOVASCULAR: S1 and S2 are heard, regular. Peripheral pulses palpable. No carotid bruit. No pericardial rub. ABDOMEN: Soft, nontender, bowel sounds heard. NEUROLOGIC: Cranial nerves 2 through 12 are intact. MUSCULOSKELETAL: He is missing his right great toe and 3rd, 4th, and 5th toes. Power is 5/5 in all four extremities. SKIN: No rashes or subcutaneous nodules. LYMPHATIC: No cervical lymphadenopathy. PSYCHIATRIC: Normal mood, normal affect, the patient is oriented to person, place, and time. LABORATORY DATA: Mr. Alexander's labs and investigations were reviewed. I reviewed his electrocardiogram, which shows sinus tachycardia, no ST changes to suggest an acute coronary syndrome. I also reviewed his chest x-ray, which shows pulmonary vascular congestion. He has normal white count, normocytic anemia with hemoglobin 10.1, normal platelet count, normal sodium, normal potassium, elevated blood urea nitrogen of 48, elevated creatinine of 12.18, unremarkable liver profile, indeterminate troponin-I of 0.088, and elevated BNP of 3809. ASSESSMENT AND PLAN: Mr. Alexander is a pleasant 57-year-old gentleman, who was seen at [facility] on July 26, 2018. His problem list includes: 1. Chest pain: Mr. Alexander is presenting with chest pain, pleuritic in nature. It appears noncardiac and he reports having a negative stress test recently. We will obtain copy of the stress test. We will recheck his troponin. We will obtain CT angiogram of the chest to rule out pulmonary embolism, given the pleuritic nature of the chest pain. I have discussed the possibility of giving him contrast for the study with his audit clerks supervisor. 2. End-stage renal disease, on dialysis: Mr. Alexander has missed dialysis today. Nephrology Service has been consulted for maintenance hemodialysis. 3. Diabetes mellitus type 2: We will start Accu-Cheks and insulin sliding scale. 4. Chronic systolic congestive heart failure, ACC/AHA class C, NYHA class III: Appears to be stable. 5. Dyslipidemia: Continue statin. Many thanks for allowing me to participate in your patient's care. Please feel free to contact me with any questions or concerns. LEVEL OF RISK: High. LEVEL OF COMPLEXITY: High. Job ID: [id number]
--- NOTE | 2018-07-26 18:56 | CON ---
DATE OF CONSULTATION: 07/26/2018 REASON FOR CONSULTATION: Need for maintenance hemodialysis. IMPRESSION: 1. End-stage renal disease, hemodialysis dependent due for dialysis today. 2. Respiratory distress, possibly multifactorial. 3. Diabetes mellitus. 4. Coronary artery disease, status post multiple stents. PLAN: 1. The patient to be dialyzed today with ultrafiltration as tolerated by hemodynamics. 2. Further management will be dependent on the clinical course. HISTORY OF PRESENT ILLNESS: History is that of a 57-year-old gentleman with end-stage renal disease hemodialysis dependent on Thursday, Thursday and Thursday schedule, who presented here with chest pain, shortness of breath, and noted clinically to be fluid overloaded with other potential pulmonary pathology. The patient is now been admitted on the need for maintenance hemodialysis that the patient is due for today, necessitated Renal consultation. PAST MEDICAL HISTORY: Significant for end-stage renal disease, coronary artery disease status post multiple stents, diabetes mellitus, systolic congestive heart failure, and atrial fibrillation. MEDICATIONS: Reviewed as documented on [employer]. ALLERGIES: TO PENICILLIN. FAMILY HISTORY: Not significantly related to present illness. SOCIAL HISTORY: , living with . No alcohol. No tobacco. No illicit drug use. REVIEW OF SYSTEMS: As documented in the body of the history. All the other systems were reviewed and found not to be significantly related to present illness. PHYSICAL EXAMINATION: GENERAL: The patient was found not to be in any obvious distress, noted with the following vital signs. VITAL SIGNS: Afebrile. Blood pressure 108/65, respiratory rate of 18. HEENT: Unremarkable. CARDIOVASCULAR SYSTEM: First and second sounds were heard. RESPIRATORY SYSTEM: Revealed some rales. DIGESTIVE SYSTEM: Revealed a benign abdomen with positive bowel sounds. EXTREMITIES: No peripheral edema. SKIN: No new gross rash. LYMPHATICS: No peripheral lymphadenopathy. SUMMARY: A 57-year-old gentleman with end-stage renal disease hemodialysis dependent, who presented here with some chest pain and respiratory distress. Thank you for this consultation. We will follow with you. Job ID: [id number]
[2018-07-26 20:32] VITALS: BMI 30.1
[2018-07-26 20:46] LABS: Troponin I 0.092 ng/mL (< 0.028)
[2018-07-26] MEDS ORDERED: Cinacalcet HCl 30 MG TAB PO SCH (21:00)
[2018-07-26] MEDS ORDERED: Metoclopramide HCl 10 MG TAB PO PRN (21:00)
[2018-07-26] MEDS ORDERED: Atorvastatin Calcium 40 MG TAB PO SCH (21:00)
[2018-07-26] MEDS ORDERED: Prasugrel 10 MG TAB PO SCH (21:00)
[2018-07-26] MEDS: Carvedilol 3.125 MG TAB PO SCH (21:56)
[2018-07-26] MEDS: Heparin 5,000 UNITS/ML VIAL SC SCH (21:58)
--- NOTE | 2018-07-26 22:34 | CT ---
CT angiogram chest: 07/26/2018 COMPARISON: 09/13/2016 HISTORY: Chills, cough, shortness of breath, assess for pulmonary embolism TECHNIQUE: Axial CT imaging at 2.5 mm intervals from thoracic inlet through upper abdomen with IV con trast using CT angiogram protocol. Coronal and oblique sagittal 3-D reformatted imaging obtained. FINDINGS: No lymphadenopathy in the hilar or axillary regions. Mildly prominent right paratracheal no jonelle, unchanged when compared to the 09/13/2016 examination. Extensive coronary arterial calcification and stent material present. No evidence for pulmonary arterial embolism. Small left and moderate right pleural effusion. Atherosclerotic calcification of the branches of the abdominal aorta noted in the upper abdomen. There is interstitial prominence and diffuse subtle groundglass opacity within both lungs with a basi lar predominance. The heart appears enlarged. No acute osseous abnormality. IMPRESSION: No evidence for pulmonary arterial embolism. Bilateral pleural effusions with diffuse int erstitial prominence and groundglass opacity suggesting pulmonary edema.
[2018-07-27] MEDS: Heparin 5,000 UNITS/ML VIAL SC SCH (08:35)
[2018-07-27] MEDS: Carvedilol 3.125 MG TAB PO SCH (08:36)
[2018-07-27] MEDS: Sevelamer Carbonate 800 MG TAB PO SCH ×2 (08:37→13:02)
[2018-07-27] MEDS ORDERED: Folic Acid/Vit B Comp W-C PO SCH (09:00)
[2018-07-27] MEDS ORDERED: Aspirin 81 mg Enteric Coated Tablet PO SCH (09:00)
[2018-07-27 11:33] VITALS: BP 104/57; TEMP 98.7
[2018-07-27] MEDS ORDERED: Loperamide HCl 2 MG CAP PO PRN (11:57)
--- NOTE | 2018-07-27 16:45 | DIS ---
DATE OF ADMISSION: 07/26/2018 DATE OF DISCHARGE: 07/27/2018 DISCHARGE DISPOSITION: Home. FOLLOWUP: 1. Follow up with primary care physician, Dr. Chris Berger in 1 week. 2. Follow up with Dr. Amato for maintenance hemodialysis. ALLERGIES: THE PATIENT IS ALLERGIC TO PENICILLIN AND TRAMADOL. DISCHARGE MEDICATIONS: Same as admission medications. BRIEF HOSPITAL COURSE: The patient is a 57-year-old male with end-stage renal disease, on hemodialysis, presented to the emergency room with chest discomfort along with shortness of breath. His chest discomfort was felt to be atypical and was pleuritic in nature. He underwent CT angiogram of the chest that showed findings consistent with pulmonary edema. He underwent two sessions of hemodialysis per Dr. Amato. Shortness of breath has significantly improved. He denies any chest discomfort. He was advised to be compliant with hemodialysis along with dietary restriction. FINAL DIAGNOSES: 1. Atypical chest discomfort, acute coronary syndrome ruled out. 2. Pulmonary edema/volume overload. Echocardiogram in 2018 showed ejection fraction of 40% to 45% with mild concentric left ventricular hypertrophy. 3. Hypertension. 4. Gastroesophageal reflux disease. 5. Hyperlipidemia. 6. Coronary artery disease, status post stent placement. 7. End-stage renal disease, on hemodialysis. 8. Diabetes mellitus type 2. 9. Obesity with a BMI of 30.1. 10. Elevated troponin in the indeterminate range, probably secondary to volume overload, questionable type 2 myocardial infarction. 11. Chronic anemia secondary to renal insufficiency. 12. Family history of diabetes and hypertension. 13. Peripheral neuropathy. PLAN: Plan of care was discussed with the patient in detail. He stated understanding. Job ID: [id number]
== END 2018-07-27 17:03 | disposition home or self-care (01) ==
LOC: ERS 09:45 → 2SW 15:33
PROVIDERS: ADMIT Internal Medicine; ATTEND Internal Medicine
DX: R07.89 Other chest pain (principal); E87.70 Fluid overload, unspecified; I13.2 Hypertensive heart and chronic kidney disease with heart failure and with stage 5 chronic kidney disease, or end stage renal disease; E11.22 Type 2 diabetes mellitus with diabetic chronic kidney disease; N18.6 End stage renal disease; I50.22 Chronic systolic (congestive) heart failure; D63.1 Anemia in chronic kidney disease; I25.10 Atherosclerotic heart disease of native coronary artery without angina pectoris; F41.9 Anxiety disorder, unspecified; E78.5 Hyperlipidemia, unspecified; I48.91 Unspecified atrial fibrillation; K21.9 Gastro-esophageal reflux disease without esophagitis; E11.42 Type 2 diabetes mellitus with diabetic polyneuropathy; E66.9 Obesity, unspecified; Z68.30 Body mass index [BMI] 30.0-30.9, adult; Z79.4 Long term (current) use of insulin; Z79.82 Long term (current) use of aspirin; Z79.899 Other long term (current) drug therapy; Z88.0 Allergy status to penicillin; Z88.5 Allergy status to narcotic agent; Z99.2 Dependence on renal dialysis; Z95.5 Presence of coronary angioplasty implant and graft; Z89.411 Acquired absence of right great toe; Z89.421 Acquired absence of other right toe(s)
CPT/HCPCS: 71045; 71275; 80053; 82550; 82553; 82962 ×2; 83880; 84484 ×2; 85025; 93005; 94760 ×3; 99285; G0378 ×2; 36415; 36416; J1644; Q9966

== ENCOUNTER 2018-09-10 01:30 | Inpatient (IN) | payer MEDICARE ==
[2018-09-10 02:03] LABS: #Eosinphils 0.2 thou/uL (0.0-0.7); #Lymphocytes 1.7 thou/uL (1.20-3.40); #Monocytes 0.4 thou/uL (0.11-0.59); #Neutrophils 4.7 thou/uL (1.40-6.50); %Basophils 0.6 % (0.0-1.0); %Eosinophils 2.2 % (0.0-10.0); %Lymphocytes 24.8 % (21.0-51.0); %Monocytes 5.7 % (0.0-10.0); %Neutrophils 66.6 % (42.0-75.0); Hemoglobin 10.5 g/dL (14.0-18.0); Mean Corpuscular HGB CONC 32.7 g/dL (32.0-36.0); Mean Corpuscular Hemoglobin 31.9 pg (27.0-31.0); Mean Corpuscular Volume 97.3 fL (78.0-98.0); Mean Platelet Volume 8.1 fL (7.4-10.4); Platelet Count 178 thou/uL (130-400); RBC Distribution Width 16.3 % (11.5-14.5); Red Blood Cell (RBC) Count 3.28 mill/uL (4.70-6.10)
[2018-09-10 02:25] LABS: ALT (SGPT) 22 U/L (8-55); AST (SGOT) 16 U/L (5-34); Albumin 4.3 g/dL (3.5-5.0); Alkaline Phosphatase 71 U/L (40-150); Anion Gap 22 mmol/L (10-20); BUN (Urea Nitrogen) 119 mg/dL (8.4-25.7); Bilirubin, Total 0.7 mg/dL (0.2-1.2); Calc. Creatinine Clearance 0 mL/min (70-130); Calcium 8.4 mg/dL (7.8-10.44); Carbon Dioxide 23 mmol/L (22-29); Chloride 103 mmol/L (98-107); Estimated GFR-MDRD 4; Globulin 3.7 g/dL (2.4-3.5); Glucose 179 mg/dL (70-105); Potassium 6.4 mmol/L (3.5-5.1); Sodium 142 mmol/L (136-145)
[2018-09-10 02:45] LABS: CKMB 3.8 ng/mL (0-6.6)
[2018-09-10] MEDS ORDERED: Lidocaine 1% (PF) 30 ML VIAL ONE (04:13)
[2018-09-10] MEDS ORDERED: Ondansetron ODT 4 MG TAB PO PRN (05:31)
[2018-09-10] MEDS ORDERED: Acetaminophen 650 MG Suppository PR PRN (05:31)
[2018-09-10 05:35] LABS: Troponin I 0.066 ng/mL (< 0.028)
[2018-09-10] MEDS ORDERED: Sodium Bicarb 50 MEQ/50 ML VIAL ONE (05:41)
[2018-09-10] MEDS ORDERED: Insulin Regular 300 UNITS/3 ML VIAL ONE (05:41)
[2018-09-10] MEDS ORDERED: Calcium Chloride 1 GM/10 ML Abboject SYRINGE ONE (05:41)
--- NOTE | 2018-09-10 07:36 | HP ---
PRIMARY CARE PHYSICIAN: Dr. Chris Berger. MARKETING OPERATIONS SPECIALIST: Dr. Amato. CODE STATUS: Full code. TIME OF EVALUATION: 3:00 a.m. CHIEF COMPLAINT: Gradually worsening shortness of breath, on maintenance hemodialysis. HISTORY OF PRESENT ILLNESS: This is a 57-year-old male patient with past medical history of end-stage renal disease, on hemodialysis, followed by Dr. Amato. He came to the hospital after having shortness of breath for the past 2 days. The patient could not get hemodialysis on Thursday since his left AV fistula was not working properly. The patient presented with fluid overload, needing BiPAP due to acute hypoxic respiratory failure and increased breathing work. Symptoms were severe, improved with BiPAP. Also, he was found to have a potassium of 6.[address] Dsouza was called for dialysis catheter placement. The patient is going for dialysis. Symptoms are triggered by fluid retention that will be due to dialysis and no improvement except for improvement with medical treatment. REVIEW OF SYSTEMS: CONSTITUTIONAL: No fever, chills, or generalized weakness. RESPIRATORY: The patient has shortness of breath. No cough or sputum production. CARDIOVASCULAR: No chest pain or palpitation. GASTROINTESTINAL: No nausea, no vomiting, diarrhea, or abdominal pain. HOME OFFICE CLAIM SPECIALIST: No dizziness, headache, or feeling lightheaded. GENITOURINARY: No burning on urination. EXTREMITIES: Bilateral leg swelling. All other systems were reviewed and negative except for the findings mentioned above. PAST MEDICAL HISTORY: Positive for hypertension, end-stage renal disease, stent placement x10, diabetes type 2. PAST SURGICAL HISTORY: Right eye cataract, left eye cataract, cardiac stent x10, forearm dialysis x5, great toe amputated, right foot 3rd and 5th toes amputated. PSYCHIATRIC HISTORY: Anxiety. SOCIAL HISTORY: No alcohol use. No drug use. No smoking history. FAMILY HISTORY: Reviewed, noncontributory for current presentation. KNOWN ALLERGIES: To penicillin and tramadol. REPORTED MEDICATIONS: 1. Atorvastatin. 2. Aspirin. 3. Novolin R. 4. Effient. 5. Pantoprazole. 6. Reglan. 7. Ipratropium. 8. Albuterol. 9. Symbicort. 10. Carvedilol. 11. Keflex. 12. Gabapentin. 13. Midodrine. PHYSICAL EXAMINATION: VITAL SIGNS: On presentation, blood pressure 153/93 with heart rate 101, respiratory rate was 19. Pain was 0/10, O2 saturation was on room BiPAP. GENERAL APPEARANCE: The patient is alert, oriented, in mild respiratory distress, on BiPAP. HEENT: Eyes, normal conjunctivae. Moist oral mucosa. Anicteric. No JVD. RESPIRATORY: Bilateral air entry is decreased. The patient has bilateral rales. No wheezing. Symmetric expansion. CARDIOVASCULAR: Normal rate. Regular rhythm. No murmurs. No gallop. Bilateral leg edema. ABDOMEN: Soft. Normal bowel sounds. MUSCULOSKELETAL: Baseline range of motion and strength. The patient has AV fistula in the left arm that is not working. SKIN: Warm, intact. No pallor. No rash. No redness. Peripheral pulses are present. Capillary refill seems to be intact. NEUROLOGIC: No evidence of any new focal weakness. Cranial nerves seems to be intact. PSYCHIATRIC: The patient is in good mood. No anxiety. Optimal judgment. DIAGNOSTIC DATA: EKG was reviewed. The patient has normal sinus rhythm at the rate of 98 with ID 180, QRS 84, QT corrected 457. Chest x-ray was reviewed, is not reported yet. The patient has bilateral congestion, cardiomegaly, left IJ catheter seems to end in the IVC. LABORATORY DATA: Labs were reviewed. The patient has white count 7.0, hemoglobin 10.5, MCV 97.3, platelet count 178. Chemistry; sodium 142, potassium 6.4, chloride 103, carbon dioxide 23, anion gap 22, BUN 118, creatinine 16.48, GFR 4, glucose 179, calcium 9.4, total bilirubin 0.7. LFTs were negative. Troponin 0.04, the second one 0.06. Beta-natriuretic peptide 3258. Albumin 4.3, globulin 3.7. ASSESSMENT AND PLAN: The patient will be placed in the hospital with following medical problems: 1. History of end-stage renal disease, on hemodialysis. The patient will need hemodialysis in the morning. Dr. Dsouza has been consulted and dialysis catheter was placed in the IJ. We will follow recommendations from Nephrology. 2. Acute hypoxic respiratory failure secondary to fluid overload from end-stage renal disease. Continue the patient on BiPAP, he seems to be improved from this point of view. 3. Mildly elevated troponin. This could be secondary to underlying chronic kidney disease versus non STEMI type 2 due to acute hypoxic respiratory failure. 4. Underlying systolic congestive heart failure. The patient has EF of 40% to 45% as per last echo on 12/31/2017. The patient will need hemodialysis for IV fluid removal. Reconcile home medications once updated. 5. History of coronary artery disease, this is chronic, seems to be stable and leak of troponin does not seem to be related to acute coronary syndrome. 6. Diabetes type 2, uncontrolled, this is chronic, glucose 179, hyperglycemia, we will place the patient on sliding scale. Adjust treatment as needed. 7. Hyperkalemia with potassium 6.4. The patient is going for dialysis, this is due to chronic kidney disease. The patient will go for hemodialysis. We will monitor electrolytes and treat accordingly. 8. Deep venous thrombosis prophylaxis. 9. Chronic normocytic anemia. This is likely secondary to underlying kidney disease. We will defer to Nephrology for any further treatment. Job ID: [id number]
--- NOTE | 2018-09-10 07:52 | RAD ---
SINGLE VIEW OF THE CHEST: COMPARISON: 07/26/2018. HISTORY: Difficulty breathing and shortness of breath. FINDINGS: A single view of the chest shows an enlarged cardiomediastinal silhouette. Diffuse mixed alveolar/in terstitial opacities are seen in the lungs. There may be a small right pleural effusion. IMPRESSION: 1. Multifocal infiltrates. 2. Small right pleural effusion. POS: [facility]
--- NOTE | 2018-09-10 08:25 | RAD ---
CHEST 1 VIEW: Date: 09/10/18 HISTORY: Status post line placement. COMPARISON: 09/10/18 at 0147 hours. FINDINGS: Stable cardiomegaly, diffuse interstitial and alveolar opacities. No pleural effusion. There is a max nt projecting over the heart. There does appear to be catheter, likely via a left internal jugular ap proach, with the distal tip in the expected region of the right atrium. Pneumothorax is not appreciat ed. IMPRESSION: Presumed left internal jugular central venous catheter as described above. No definite pneumothorax. Results of study discussed with Fausto. CODE CR. POS: OFF
--- NOTE | 2018-09-10 11:46 | CON ---
DATE OF CONSULTATION: 09/10/2018 SERVICE: Renal Medicine. HISTORY OF PRESENT ILLNESS: Mr. Alexander is a 57-year-old black male with ESRD and was admitted for shortness of breath with hyperkalemia. He has not received dialysis for several days. He was attempted to be dialyzed last Thursday, but the access was nonfunctional. Due to the nonfunctional access and the patient was noted to be hyperkalemic and in CHF, an emergent temporary left IJ catheter was placed. He is currently undergoing emergent hemodialysis. Attempting to max out fluid removal with this patient. REVIEW OF SYSTEMS: Progressive shortness of breath. No chest pain. No nausea. No vomiting. No abdominal pain. Positive for leg edema. No fever or chills. No gross hematuria. No dysuria. No frequency. Appetite decreased. Energy level is somewhat decreased. No dysuria. No hematochezia. No melena. No hematemesis. PAST MEDICAL HISTORY: Includes the following; 1. ESRD, on maintenance hemodialysis 3 times a week. 2. Coronary artery disease. 3. Type 2 diabetes mellitus. 4. Hypertension. PAST SURGICAL HISTORY: Status post AV fistula placement; status post great toe amputation, right, and third and fifth toe amputation; status post cardiac cath; status post coronary stent placement; status post bilateral cataract surgery; status post cuffed hemodialysis catheter placement. SOCIAL HISTORY: The patient is . Six children. Lives in [place]. Education, high school. Currently, no smoking. No alcohol intake. No IV drug use. Sedentary lifestyle. FAMILY HISTORY: No family history of ESRD. ALLERGIES: PENICILLIN AND TRAMADOL. TRAUMA: None. IMMUNIZATION: Up to date. HOSPITALIZATIONS: Please see past medical history. FAMILY HISTORY: No family history of ESRD. HOME MEDICATIONS: Include the following; 1. Renvela 800 mg p.o. t.i.d. with meals. 2. Florastor 250 mg once a day. 3. Effient 10 mg tablet at bedtime. 4. Protonix 40 mg tablet once a day. 5. Midodrine 2.5 mg p.o. daily. 6. Humulin R subcu p.r.n. 7. Sensipar 90 mg at bedtime. 8. Carvedilol 6.125 mg p.o. b.i.d. 9. Symbicort 2 puffs p.r.n. 10. Atorvastatin 80 mg tablet at bedtime. 11. Aspirin 81 mg daily. 12. Albuterol oral inhaler. PHYSICAL EXAMINATION: VITAL SIGNS: Blood pressure is now 120/70, heart rate 70. GENERAL: Awake, alert, obese, comfortable, not in overt distress. SKIN: Adequate turgor. HEENT: He has pinkish conjunctivae, anicteric sclerae. No neck mass. No carotid bruits. No JVD. CHEST: No deformities. LUNGS: Clear breath sounds. No wheezing. No crackles. HEART: Normal sinus rhythm. No murmurs, gallops, or rubs. ABDOMEN: Globular, soft, and nontender. No masses. EXTREMITIES: No edema. No deformities. LABORATORY DATA: Laboratories of September 10, 2018; sodium 142, potassium 6.4, chloride 103, carbon dioxide 23, BUN 119, creatinine 16.48, glucose 179, calcium 8.4, AST 16, ALT 22. Troponin I 0.066. White count 7, hemoglobin 10.5. DIAGNOSTIC DATA: Chest x-ray on September 10, 2018, shows increased lung markings. ASSESSMENT AND PLAN: 1. Congestive heart failure, emergent hemodialysis, maxing out fluid removal as tolerated. 2. Hyperkalemia - emergent hemodialysis. Temporary left internal jugular dialysis catheter has been placed. My plan is to do another dialytic treatment with this patient tomorrow. Again, agree with current management. Job ID: [id number]
[2018-09-10] MEDS: Heparin 5,000 UNITS/ML VIAL SC SCH ×3 (12:48→20:02)
[2018-09-10] MEDS: Acetaminophen 325 MG TAB PO PRN (13:01)
[2018-09-10 13:50] VITALS: BMI 32.5
[2018-09-10 21:25] LABS: Magnesium 1.4 mg/dL (1.6-2.6); Potassium 4.7 mmol/L (3.5-5.1)
[2018-09-10] MEDS ORDERED: Magnesium 2 GM/50 ML 2 GM in Premix Bag 1 BAG IVPB SCH (22:30)
[2018-09-11 05:23] LABS: #Eosinphils 0.2 thou/uL (0.0-0.7); #Lymphocytes 1.5 thou/uL (1.20-3.40); #Monocytes 0.6 thou/uL (0.11-0.59); #Neutrophils 4.4 thou/uL (1.40-6.50); %Basophils 0.5 % (0.0-1.0); %Eosinophils 2.3 % (0.0-10.0); %Lymphocytes 23.1 % (21.0-51.0); %Monocytes 8.8 % (0.0-10.0); %Neutrophils 65.2 % (42.0-75.0); Hemoglobin 9.5 g/dL (14.0-18.0); Mean Corpuscular HGB CONC 33.3 g/dL (32.0-36.0); Mean Corpuscular Hemoglobin 32.2 pg (27.0-31.0); Mean Corpuscular Volume 96.7 fL (78.0-98.0); Mean Platelet Volume 8.1 fL (7.4-10.4); Platelet Count 142 thou/uL (130-400); RBC Distribution Width 16.1 % (11.5-14.5); Red Blood Cell (RBC) Count 2.96 mill/uL (4.70-6.10); White Blood Cell (WBC) Count 6.7 thou/uL (4.8-10.8)
[2018-09-11 05:47] LABS: Anion Gap 19 mmol/L (10-20); BUN (Urea Nitrogen) 58 mg/dL (8.4-25.7); Calc. Creatinine Clearance 11 mL/min (70-130); Carbon Dioxide 25 mmol/L (22-29); Chloride 98 mmol/L (98-107); Estimated GFR-MDRD 6; Glucose 143 mg/dL (70-105); Potassium 4.9 mmol/L (3.5-5.1); Sodium 137 mmol/L (136-145)
[2018-09-11] MEDS: Acetaminophen 325 MG TAB PO PRN (06:05)
[2018-09-11] MEDS: Heparin 5,000 UNITS/ML VIAL SC SCH ×3 (08:22→20:02)
[2018-09-11] MEDS ORDERED: Heparin 1,000 UNITS/ML VIAL ONE (09:53)
[2018-09-11] MEDS ORDERED: Ondansetron ODT 8 MG TAB SL PRN (11:26)
[2018-09-11] MEDS ORDERED: HumaLOG 300 UNITS/3 ML VIAL SC PRN (11:28)
[2018-09-11] MEDS ORDERED: Dextrose 50% Abboject 50 ML SYRINGE SLOW IVP PRN (11:28)
[2018-09-11] MEDS ORDERED: Dextrose 5% in Water 1,000 ML IV PRN (11:28)
[2018-09-11] MEDS ORDERED: EPOETIN ALFA-EPBX (ESRD) 4,000 UNIT/ML VIAL SC SCH (11:45)
[2018-09-11] MEDS ORDERED: Heparin 10,000 UNITS/ 10 ML VIAL ONE (12:00)
[2018-09-11] MEDS ORDERED: HYDROcodone/Acetaminophen 10/325 mg Tablet PO PRN (12:00)
--- NOTE | 2018-09-11 12:38 | PRG ---
DATE OF SERVICE: 09/11/2018 SUBJECTIVE: Mr. Alexander is a 57-year-old black male with ESRD, who was admitted for hyperkalemia and volume overload. He had a nonfunctioning AV fistula. A temporary left IJ dialysis catheter has been placed. He underwent dialysis yesterday. He is doing a little better. Our plan is to do another dialytic intervention today. 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 No other complaints today. Denies any chest pain or shortness of breath. OBJECTIVE: VITAL SIGNS: Temperature 97.8, heart rate 94, respiratory rate 18, pulse ox 96%, blood pressure 133/72. GENERAL: He is awake, sitting comfortable, not in distress. SKIN: Adequate turgor. HEENT: He has slightly pale conjunctivae. Anicteric sclerae. NECK: No neck mass. No carotid bruits. No JVD. CHEST: No deformities. LUNGS: Clear breath sounds. No wheezing. No crackles. HEART: Normal sinus rhythm. No murmurs, gallops, or rubs. ABDOMEN: Globular, soft, nontender. No masses. EXTREMITIES: No edema. Left upper extremity is positive for AV fistula. Positive for bruit. MEDICATIONS: Medications of September 11, 2018, was reviewed. LABORATORY DATA: Laboratories of September 11, 2018, white count 6.7, hemoglobin 9.5. Sodium 137, potassium 4.9, chloride 98, carbon dioxide 25, BUN 58, creatinine 10.15, glucose 143, calcium 8. ASSESSMENT AND PLAN: 1. Hyperkalemia, resolved with hemodialysis. 2. Congestive heart failure, stable, and much improved with dialysis. Fluid removal was done. 3. End-stage renal disease. We will do another dialytic intervention today. We will attempt to use the AV fistula using a smaller gauge 17 needle. If the patient remains improve and stable, consider discharging. 4. Anemia. Start Epogen 7500 units subcutaneous every week. Job ID: [id number]
[2018-09-11] MEDS: Sevelamer Carbonate 800 MG TAB PO SCH ×2 (13:06→17:59)
[2018-09-11] MEDS: SEVELAMER CARBONATE 800 MG PO SCH ×2 (13:06→17:58)
[2018-09-11] MEDS ORDERED: PROVENTIL INHALER 6.7 G (200 INHALATIONS) INH PRN (14:30)
[2018-09-11] MEDS ORDERED: Loperamide HCl 2 MG CAP PO SCH (14:45)
[2018-09-11] MEDS ORDERED: Midodrine HCl 5 MG TAB PO PRN (15:00)
[2018-09-11] MEDS: Carvedilol 3.125 MG TAB PO SCH (18:00)
[2018-09-11] MEDS: Metoclopramide HCl 10 MG TAB PO SCH (18:01)
[2018-09-11] MEDS: HumaLOG 300 UNITS/3 ML VIAL SC SCH (18:02)
[2018-09-11] MEDS ORDERED: Mometasone/Formoterol 120 PUFF INHALER INH PRN (18:30)
--- NOTE | 2018-09-11 19:14 | PDOC.PN ---
- Subjective Encounter Start Date: 09/11/18 Encounter Start Time: 12:00 Pt seen for followup re: volume overload. feels better. - Objective Resuscitation Status - Order Detail: 09/10/18 05:31 Resuscitation Status Routine Resuscitation Status: FULL: Full Resuscitation Vital Signs & Weight: Vital Signs (12 hours) Temp Pulse Resp BP Pulse Ox 09/11/18 16:00 97.9 F 88 17 142/85 H 96 09/11/18 12:00 98.0 F 96 17 110/60 95 09/11/18 07:52 96 09/11/18 07:46 97.8 F 94 18 123/72 96 Weight Weight 210 lb 2 oz I&O: 09/10/18 09/11/18 09/12/18 06:59 06:59 06:59 Intake Total 1080 840 Output Total 3300 3000 Balance -2220 -2160 Result Diagrams: 09/11/18 04:01 09/11/18 04:01 Additional Labs: Accuchecks 09/11/18 09/11/18 09/10/18 17:01 10:46 21:52 POC Glucose 102 185 H 233 H Phys Exam - Physical Examination Obese HEENT: moist MMs Neck: supple Respiratory: clear to auscultation bilateral Cardiovascular: RRR Gastrointestinal: soft Neurological: moves all 4 limbs Psychiatric: normal affect Dx/Plan (1) Volume overload Code(s): E87.70 - FLUID OVERLOAD, UNSPECIFIED Status: Acute Comment: improved with dialysis (2) ESRD on dialysis Code(s): N18.6 - END STAGE RENAL DISEASE; Z99.2 - DEPENDENCE ON RENAL DIALYSIS Status: Chronic Comment: nephrology following (3) CAD (coronary artery disease) Code(s): I25.10 - ATHSCL HEART DISEASE OF [place] CORONARY ARTERY W/O ANG PCTRS Status: Chronic Comment: stable (4) DM type 2 (diabetes mellitus, type 2) Status: Chronic Comment: continue insulin sliding scale - Plan * . Review of Systems - Review of Systems Cardiovascular: negative: chest pain, palpitations, orthopnea, paroxysmal nocturnal dyspnea, edema, light headedness Gastrointestinal: negative: Nausea, Vomiting, Abdominal Pain, Diarrhea, Constipation, Melena, Hematochezia - Medications/Allergies Allergies/Adverse Reactions: Allergies Allergy/AdvReac Type Severity Reaction Status Date / Time penicillin V potassium Allergy Unknown Verified 09/10/18 12:47 [From Lily Cheek] tramadol Allergy Verified 09/10/18 12:47 Medications: Current Medications Acetaminophen (Tylenol) 650 mg PO Q4H PRN PRN Reason: Headache/Fever/Mild Pain (1-3) Last Admin: 09/11/18 06:05 Dose: 650 mg Acetaminophen (Tylenol) 650 mg IN Q4H PRN PRN Reason: Headache/Fever/Mild Pain (1-3) Hydrocodone Bitart/Acetaminophen ([place] 10/325) 1 tab PO Q6HR PRN PRN Reason: Pain Albuterol Sulfate (Proventil Hfa) 2 puff INH [id number] PRN PRN Reason: SOB &/or Wheezing Albuterol/Ipratropium (Duoneb) 3 ml NEB [id number] PRN PRN Reason: SOB &/or Wheezing Aspirin (Ecotrin) 81 mg PO DAILY TAO Atorvastatin Calcium (Lipitor) 80 mg PO HS [facility] Carvedilol (Coreg) 6.125 mg PO BID-[facility] Last Admin: 09/11/18 18:00 Dose: 6.125 mg Cinacalcet (Sensipar) 90 mg PO HS [facility] Dextrose/Water (Dextrose 50%) 25 gm SLOW IVP PRN PRN PRN Reason: Hypoglycemia Gabapentin (Neurontin) 300 mg PO HS [facility] Glucagon (Glucagon) 1 mg IM PRN PRN PRN Reason: Hypoglycemia Heparin Sodium (Porcine) (Heparin) 5,000 units SC TID [facility] Last Admin: 09/11/18 15:09 Dose: Not Given Dextrose/Water (D5w) 1,000 mls @ 0 mls/hr IV .Q0M PRN PRN Reason: Hypoglycemia Insulin Human Lispro (Humalog) 3 units SC BID-[facility] Last Admin: 09/11/18 18:02 Dose: 3 units Insulin Human Lispro (Humalog) 0 units SC .MILD SLIDING SCALE PRN PRN Reason: Mild Correctional Scale Metoclopramide HCl (Reglan) 10 mg PO TID-[facility] Last Admin: 09/11/18 18:01 Dose: 10 mg Midodrine (Proamatine) 5 mg PO DAILYPRN PRN PRN Reason: HYPOTENTION Mometasone Furoate/Formoterol Fumar (Dulera 200 Mcg/5 Mcg Inhaler) 2 puff INH BID-RT PRN PRN Reason: SOB &/or Wheezing Non-Formulary Medication (B,C/Folic/Zinc/Selenometh/D3/E [Renaplex-D Tablet]) 1 each PO DAILY [facility] Non-Formulary Medication (Sevelamer Carbonate [Renvela]) 800 mg PO TID-WM [facility] Last Admin: 09/11/18 17:58 Dose: Not Given Ondansetron HCl (Zofran Odt) 4 mg PO Q6H PRN PRN Reason: Nausea/Vomiting Ondansetron HCl (Zofran) 4 mg IVP Q6H PRN PRN Reason: Nausea/Vomiting Ondansetron HCl (Zofran Odt) 8 mg SL Q8H PRN PRN Reason: Nausea Pantoprazole Sodium (Protonix) 40 mg PO DAILY TAO Prasugrel (Effient) 10 mg PO HS TAO Sevelamer Carbonate (Renvela) 800 mg PO TID-WM [facility] Last Admin: 09/11/18 17:59 Dose: 800 mg
[2018-09-11] MEDS ORDERED: Atorvastatin Calcium 40 MG TAB PO SCH (21:00)
[2018-09-11] MEDS ORDERED: Cinacalcet HCl 30 MG TAB PO SCH (21:00)
[2018-09-11] MEDS ORDERED: Prasugrel 10 MG TAB PO SCH (21:00)
[2018-09-11] MEDS ORDERED: Gabapentin 300 MG CAP PO SCH (21:00)
[2018-09-11] MEDS: Ondansetron PF 4 MG/2 ML Vial IVP PRN (23:48)
[2018-09-12] MEDS: Carvedilol 3.125 MG TAB PO SCH ×2 (08:46→16:46)
[2018-09-12] MEDS: HumaLOG 300 UNITS/3 ML VIAL SC SCH ×2 (08:46→16:47)
[2018-09-12] MEDS: Sevelamer Carbonate 800 MG TAB PO SCH ×3 (08:47→16:47)
[2018-09-12] MEDS: Metoclopramide HCl 10 MG TAB PO SCH ×3 (08:47→16:47)
[2018-09-12] MEDS: Heparin 5,000 UNITS/ML VIAL SC SCH ×2 (08:47→14:46)
[2018-09-12] MEDS: SEVELAMER CARBONATE 800 MG PO SCH ×3 (08:47→17:28)
[2018-09-12] MEDS ORDERED: Folic Acid/Vit B Comp W-C PO SCH (09:00)
[2018-09-12] MEDS ORDERED: Aspirin 81 mg Enteric Coated Tablet PO SCH (09:00)
--- NOTE | 2018-09-12 10:35 | PRG ---
DATE OF SERVICE: 09/12/2018 SUBJECTIVE: Mr. Alexander is a 57-year-old black male with ESRD, who was admitted for nonfunctioning AV fistula. He was noted to be hyperkalemic and volume overload. A temporary left IJ dialysis catheter was placed. He underwent consecutive dialysis on Thursday and Thursday. Yesterday, we were able to use the AV fistula using a small dialysis needle. Our plan is to continue to use his AV fistula for next dialysis this coming Thursday. No other complaints today. No chest pain. No shortness of breath. OBJECTIVE: VITAL SIGNS: Blood pressure is 106/63, heart rate 91, respiratory rate 18, temperature 98.8, and pulse ox 92%. GENERAL: Awake, alert, comfortable, not in distress. SKIN: Adequate turgor. HEENT: He has pinkish conjunctivae. Anicteric sclerae. NECK: No neck mass. No carotid bruits. No JVD. CHEST: No deformities. LUNGS: Clear breath sounds. HEART: Normal sinus rhythm. No murmur. No gallops. No rubs. ABDOMEN: Globular, soft, nontender. No masses. EXTREMITIES: No edema. No deformities. MEDICATIONS: Medications of September 12, 2018, reviewed. LABORATORY DATA: Laboratories, September 11, 2018, hemoglobin 9.5. Potassium 4.9, BUN 58, creatinine 10.1. September 12, 2018, blood sugar 159. ASSESSMENT AND PLAN: 1. End-stage renal disease, stable. We were able to use his left AV fistula using a small needle. The plan is to use this AV fistula tomorrow with his dialysis in the outpatient. We will pull out his left IJ non-tunneled dialysis catheter. 2. Hyperkalemia, resolved. 3. Congestive heart failure, resolved with dialysis. The patient will be okay for discharge. We will [facility]. We will notify Dr. Amato. Job ID: [id number]
[2018-09-12] MEDS: Ondansetron PF 4 MG/2 ML Vial IVP PRN (13:06)
[2018-09-12 16:19] VITALS: BP 114/71; TEMP 98.1
[2018-09-12] MEDS ORDERED: Loperamide HCl 2 MG CAP PO PRN (17:32)
[2018-09-12] MEDS ORDERED: Loperamide HCl 2 MG CAP PO SCH (17:45)
--- NOTE | 2018-09-12 23:34 | DIS ---
DATE OF ADMISSION: 09/10/2018 DATE OF DISCHARGE: 09/12/2018 PRIMARY CARE PROVIDER: Dr. Chris Berger. DISCHARGE DIAGNOSES: 1. Volume overload. 2. Hyperkalemia. 3. Nonfunctioning AV fistula. 4. Diarrhea. CONDITION OF PATIENT ON THE DAY OF DISCHARGE: Stable. I assessed Mr. Alexander on the day of discharge. He denies any chest pain or shortness of breath. Vital signs are stable. S1 and S2 are heard, regular. Lungs are clear to auscultation bilaterally. CONSULTATIONS DURING THIS HOSPITALIZATION: Nephrology, Dr. Hebert. DISCHARGE MEDICATIONS: In addition to the pre-admission home medications as described by Dr. Soliz's in his history and physical note dated September 10, 2018, he is being discharged home on p.r.n. Imodium and epoetin 7500 units subcutaneously every week. HOSPITAL COURSE: Mr. Alexander is a pleasant 57-year-old gentleman, who was admitted to [facility] for volume overload and hyperkalemia. He had nonfunctioning AV fistula. He had a temporary left IJ dialysis catheter placed and underwent dialysis. On September 11, the AV fistula could be used, using small dialysis needle. His temporary left IJ dialysis catheter is being removed prior to discharge. He also had two episodes of loose stools. Clostridium difficile toxin test was negative. He has been advised to take [id number] Imodium as needed. He improved symptomatically during this hospitalization and is being discharged home in a stable condition. Many thanks for allowing me to participate in your patient's care. Please feel free to contact me with any questions or concerns. DISCHARGE DESTINATION: Home. TIME SPENT: Total amount of time spent coordinating this discharge: 31 minutes. Job ID: [id number]
== END 2018-09-12 18:25 | disposition home or self-care (01) | DRG 314 ==
LOC: ERS 01:30 → ERHOLD 02:38 → 2NO 12:34
PROVIDERS: ADMIT Hospitalist; ATTEND Hospitalist
PROC: 02H633Z Insertion of Infusion Device into Right Atrium, Percutaneous Approach (ICD-10-PCS; principal; 2018-09-10)
PROC: 5A1D70Z Performance of Urinary Filtration, Intermittent, Less than 6 Hours Per Day (ICD-10-PCS; 2018-09-10)
DX: T82.510A Breakdown (mechanical) of surgically created arteriovenous fistula, initial encounter (principal); N18.6 End stage renal disease; J96.01 Acute respiratory failure with hypoxia; I50.22 Chronic systolic (congestive) heart failure; I13.2 Hypertensive heart and chronic kidney disease with heart failure and with stage 5 chronic kidney disease, or end stage renal disease; E87.70 Fluid overload, unspecified; E11.22 Type 2 diabetes mellitus with diabetic chronic kidney disease; E87.5 Hyperkalemia; I25.10 Atherosclerotic heart disease of native coronary artery without angina pectoris; D63.1 Anemia in chronic kidney disease; Z99.2 Dependence on renal dialysis; Z95.5 Presence of coronary angioplasty implant and graft; Z88.6 Allergy status to analgesic agent; Z88.0 Allergy status to penicillin; Z79.82 Long term (current) use of aspirin; Z79.51 Long term (current) use of inhaled steroids; Z79.899 Other long term (current) drug therapy
CPT/HCPCS: 36415; 36416; 71045; 80048; 80053; 82553; 83735; 83880; 84484; 85025; 87324; 87449; 90471; 90732; 93005; 94660; 94760; C1752; G0009; J1644; J1815; J2001; J2405; J3475; J8597; Q5105

== ENCOUNTER 2018-10-12 02:39 | Observation (INO) | payer MEDICARE ==
[2018-10-12 03:06] LABS: #Eosinphils 0.1 thou/uL (0.0-0.7); #Lymphocytes 1.7 thou/uL (1.20-3.40); #Monocytes 0.5 thou/uL (0.11-0.59); #Neutrophils 3.8 thou/uL (1.40-6.50); %Basophils 0.7 % (0.0-1.0); %Eosinophils 2.1 % (0.0-10.0); %Lymphocytes 27.2 % (21.0-51.0); %Monocytes 8.2 % (0.0-10.0); %Neutrophils 61.9 % (42.0-75.0); Hemoglobin 12.3 g/dL (14.0-18.0); Mean Corpuscular HGB CONC 32.2 g/dL (32.0-36.0); Mean Corpuscular Hemoglobin 31.6 pg (27.0-31.0); Mean Corpuscular Volume 98.3 fL (78.0-98.0); Mean Platelet Volume 7.9 fL (7.4-10.4); Platelet Count 174 thou/uL (130-400); RBC Distribution Width 14.9 % (11.5-14.5); White Blood Cell (WBC) Count 6.1 thou/uL (4.8-10.8)
[2018-10-12 03:29] LABS: ALT (SGPT) 16 U/L (8-55); AST (SGOT) 17 U/L (5-34); Albumin 4.5 g/dL (3.5-5.0); Alkaline Phosphatase 75 U/L (40-150); Anion Gap 19 mmol/L (10-20); BUN (Urea Nitrogen) 41 mg/dL (8.4-25.7); Bilirubin, Total 0.5 mg/dL (0.2-1.2); Calc. Creatinine Clearance 0 mL/min (70-130); Calcium 10.5 mg/dL (7.8-10.44); Carbon Dioxide 31 mmol/L (22-29); Chloride 93 mmol/L (98-107); Estimated GFR-MDRD 7; Globulin 4.2 g/dL (2.4-3.5); Glucose 280 mg/dL (70-105); Protein, Total 8.7 g/dL (6.0-8.3); Sodium 139 mmol/L (136-145)
[2018-10-12 03:33] LABS: Troponin I 0.162 ng/mL (< 0.028)
[2018-10-12] MEDS ORDERED: methylPREDNISolone Sod Succ/PF 125 MG/2 ML VIAL ONE (07:03)
[2018-10-12] MEDS ORDERED: Aspirin 325 MG TAB ONE (07:27)
--- NOTE | 2018-10-12 07:40 | RAD ---
CHEST ONE VIEW: INDICATIONS: Shortness of breath. Dyspnea. COMPARISON: Prior exam dated 09/10/2018. IMPRESSION: Low lung volumes. No infiltrate, pleural effusion, or pneumothorax. No acute osseous abnormality. POS: BH
[2018-10-12 07:49] LABS: CKMB 1.8 ng/mL (0-6.6)
--- NOTE | 2018-10-12 08:28 | CT ---
CTA THORAX UTILIZING IV CONTRAST WITH PE PROTOCOL AND 3D REFORMATTED IMAGING: INDICATIONS: A 57-year-old male with orthopnea and dyspnea. COMPARISON: Prior CTA thorax dated 07/26/2018. FINDINGS: No central or segmental pulmonary embolus is evident. There is extensive calcification involving the coronary arteries and thoracic aorta. There are coronary artery bypass grafts seen extensively thro ugh the circumflex, LAD, and right coronary arteries. There is hazy air space opacity seen within th e perihilar region, which may reflect pulmonary edema. No jessica pleural effusion is evident. No pne umothorax is evident. There is mild male gynecomastia. There are calcified granulomas within the li darinel and spleen. The adrenal glands are unremarkable. No definite acute osseous abnormality is evident. There is scattered degenerative and osteoarthritic change. IMPRESSION: 1. No central or segmental pulmonary embolus. 2. Cardiomegaly with perihilar air space opacities, which may reflect mild congestive heart failure. No jessica pleural effusion is evident. The perihilar air space opacities can be seen with atypical infectious processes. Would recommend correlation. POS: CINDY
[2018-10-12 10:14] LABS: Troponin I 0.151 ng/mL (< 0.028)
[2018-10-12] MEDS ORDERED: Bisacodyl 10 MG SUPP PR PRN (10:15)
[2018-10-12] MEDS ORDERED: hydrALAZINE 20 MG/ML VIAL SLOW IVP PRN (10:15)
[2018-10-12] MEDS ORDERED: Zolpidem Tartrate 5 MG TAB PO PRN (10:15)
[2018-10-12] MEDS ORDERED: Senokot S 8.6-50 MG TAB PO PRN (10:15)
[2018-10-12] MEDS ORDERED: Ondansetron ODT 4 MG TAB PO PRN (10:15)
[2018-10-12] MEDS ORDERED: Dextrose 50% Abboject 50 ML SYRINGE SLOW IVP PRN (10:15)
[2018-10-12] MEDS ORDERED: Artificial Tears 18 DROP/0.9 ML EA EYE PRN (10:15)
[2018-10-12] MEDS ORDERED: Acetaminophen 325 MG TAB PO PRN (10:15)
[2018-10-12] MEDS ORDERED: Calcium Carbonate 500 MG ChewTAB PO PRN (10:15)
[2018-10-12] MEDS ORDERED: Ondansetron PF 4 MG/2 ML Vial IVP PRN (10:15)
[2018-10-12] MEDS ORDERED: Nitroglycerin 0.4 MG TAB (25 Tab Bottle) SL PRN (10:15)
[2018-10-12] MEDS ORDERED: Loperamide HCl 2 MG CAP PO PRN (10:15)
[2018-10-12] MEDS ORDERED: Cepastat Lozenges 1 LOZ PO PRN (10:15)
[2018-10-12] MEDS ORDERED: HumaLOG 300 UNITS/3 ML VIAL SC PRN (10:15)
[2018-10-12] MEDS ORDERED: Dextrose 5% in Water 1,000 ML IV PRN (10:15)
[2018-10-12] MEDS ORDERED: Sodium Chloride 0.65% Nasal 44 ML BOT EA NARE PRN (10:15)
[2018-10-12] MEDS ORDERED: Diabetic Tussin 200 MG/10 ML UDCUP PO PRN (10:15)
[2018-10-12] MEDS ORDERED: HYDROcodone/Acetaminophen 10/325 mg Tablet PO PRN (10:16)
[2018-10-12] MEDS ORDERED: EPOETIN ALFA-EPBX (ESRD) 4,000 UNIT/ML VIAL SC SCH (10:30)
[2018-10-12] MEDS ORDERED: ISOVUE-370 76%-LOCM 1 ML ONE (10:32)
--- NOTE | 2018-10-12 10:45 | HP ---
PRIMARY CARE PHYSICIAN: Dr. Chris Berger. REASON FOR ADMISSION: Dyspnea. HISTORY OF PRESENT ILLNESS: A 57-year-old male with a history of ESRD, who came to emergency room with complaint of shortness of breath. The patient has orthopnea. He denies any lower extremity edema. He denies any chest pain. He does report intermittent PND. He does report dyspnea on exertion. The patient reports that last Thursday, he was not able to get dialysis because of problem with AV fistula, and that is why he had dialysis on Thursday. Again, the patient had dialysis yesterday on Thursday, and because of low blood pressure, the patient did not able to remove fluid through the dialysis, and that is why he was feeling short of breath. He came to emergency room today. In the emergency room, his troponin is indeterminate range, though his troponin is chronically elevated. His BNP is elevated. His CT angiography and chest x-ray were unremarkable. His past echocardiography showed EF 40% to 45%. At this point, we are admitting this patient for further evaluation. PAST MEDICAL HISTORY: ESRD, on hemodialysis; coronary artery disease with history of stent; diabetes, type 2; chronic systolic and diastolic heart failure; anemia of renal disease; secondary hyperparathyroidism of renal origin; gastroesophageal reflux disease; asthma/COPD. PAST SURGICAL HISTORY: Cardiac catheterization with several stents, right upper extremity AV fistula, right great toe amputation, right third toe through fifth toe amputation. PAST PSYCHIATRIC HISTORY: Reviewed and negative. ALLERGIES: PENICILLIN. FAMILY HISTORY: Lung cancer to his mother. Multiple family member has diabetes and hypertension. SOCIAL HISTORY: The patient is , lives at home with his . No history of tobacco, alcohol, or illicit drug abuse. REVIEW OF SYSTEMS: CONSTITUTIONAL: Negative for weight loss or gain, ability to conduct usual activities. SKIN: Negative for rash, itching. EYES: Negative for double vision, pain. ENT/MOUTH: Negative for nose bleeding, neck stiffness, pain, tenderness. CARDIOVASCULAR: Negative for palpitations, dyspnea on exertion, orthopnea. RESPIRATORY: Negative for shortness of breath, wheezing, cough, hemoptysis, fever or night sweats. GASTROINTESTINAL: Negative for poor appetite, abdominal pain, heartburn, nausea, vomiting, constipation, or diarrhea. GENITOURINARY: Negative for urgency, frequency, dysuria, nocturia. MUSCULOSKELETAL: Negative for pain, swelling. NEUROLOGIC/PSYCHIATRIC: Negative for anxiety, depression. ALLERGY/IMMUNOLOGIC: Negative for skin rash, bleeding tendency. Please see my HPI for pertinent positives and negatives. All other review of systems reviewed and negative except as mentioned in HPI. EMERGENCY ROOM COURSE: The patient is given aspirin and Solu-Medrol 125 mg. CURRENT HOME MEDICATIONS: 1. Aspirin 81 mg p.o. daily. 2. Lipitor 80 mg p.o. at bedtime. 3. Nephro-Vern one tablet daily. 4. Coreg 6.25 mg b.i.d. 5. Cinacalcet 90 mg p.o. at bedtime. 6. Gabapentin 300 mg at bedtime. 7. NovoLog insulin as per sliding scale. 8. Reglan 10 mg t.i.d. p.r.n. 9. Effient 10 mg p.o. at bedtime. 10. Renvela 800 mg t.i.d. 11. Epogen with dialysis. 12. Protonix 40 mg p.o. daily. 13. Ventolin HFA 2 puffs q.6 hourly p.r.n. 14. [place] 1 tablet q.6 hourly p.r.n. 15. DuoNeb q.6 hourly. 16. Symbicort 2 puffs inhalation b.i.d. 17. Midodrine 5 mg p.o. p.r.n. PHYSICAL EXAMINATION: VITAL SIGNS: Currently, blood pressure 132/86, pulse 88, respiratory rate 18, temperature 98.9, saturation 94% on room air. Weight 97.7 kg. GENERAL: The patient is currently alert, awake, no obvious acute distress. HEENT: Head; normocephalic and atraumatic. Eyes; pupils are round, reactive to light. Extraocular muscle intact. ENT, oropharynx within normal limits. Moist mucous membranes. No oral lesion. No pharyngeal erythema. No exudate. NECK: Supple. No JVD. No thyromegaly. No carotid bruit. LUNGS: Clear to auscultation without any rhonchi or rales. CARDIAC: S1 and S2 regular without any murmur. ABDOMEN: Obesity present. Bowel sounds present. EXTREMITIES: No edema. Good distal pulsation. SKIN: No skin rash. Upper extremities AV fistula in place, covered with bandage. NEUROLOGIC: Nonfocal examination. PSYCHIATRIC: Normal affect. SIGNIFICANT LABORATORY DATA: EKG showing normal sinus rhythm, left atrial enlargement. Chest x-ray based on my review, no acute cardiopulmonary process. CT angiography based on my review, no pulmonary embolism. CBC; WBC 6.1, hemoglobin 12.3, platelets 174. BMP; sodium 139, potassium 4.0, chloride 93, carbon dioxide 31, anion gap 19, BUN 41, creatinine 9.84, glucose 280, calcium 10.5. LFT; AST 17, ALT 16, alkaline phosphatase 75, albumin 4.5. Troponin 0.162. BNP 1061. ASSESSMENT AND PLAN: 1. Dyspnea, multifactorial etiology. The patient is not able to get fluid removal because of hypotension with dialysis. He has underlying chronic systolic and diastolic heart failure as well as he has chronic COPD/asthma, all contributing to his dyspnea, orthopnea, paroxysmal nocturnal dyspnea. This patient will need further evaluation. We will repeat echocardiography during this admission. We will consult Cardiology for their opinion. We will treat underlying lung problem with respiratory therapy. We will consult Dr. Amato to decide about dialysis. We will observe him for 24 hours, and if he is stable by tomorrow, then we will consider discharging him home. 2. Elevated troponin. This patient has chronically elevated troponin. He is not complaining any chest pain, but he has dyspnea on exertion. It could be angina equivalent. We will consult Cardiology to give opinion regarding his dyspnea as well as his cardiac history. Currently, does not suspect any lung pathology contributing to his dyspnea. 3. End-stage renal disease, on hemodialysis. Dr. Amato will be consulted and he will decide about dialysis. 4. Anemia of renal disease. We will continue Nephro-Vern one tablet p.o. daily and Procrit with dialysis. 5. Secondary hyperparathyroidism of renal origin. We will continue Renvela 800 mg p.o. t.i.d., cinacalcet 90 mg p.o. at bedtime. 6. Chronic obstructive pulmonary disease/asthma. We will continue Dulera 2 puffs inhalation b.i.d., DuoNeb q.6 hourly and p.r.n., Solu-Medrol 20 mg IV q.8 hourly. 7. Chronic hypotension. The patient will check random cortisol, and we will continue with midodrine as needed. Because of low blood pressure, the patient is not able to get any fluid removal with dialysis. 8. Chronic systolic and diastolic heart failure with mild exacerbation. The patient will need dialysis for fluid removal. The patient will continue Coreg 6.125 mg b.i.d. The patient cannot have lisinopril or ARB because of his renal failure and dialysis patient. 9. Dyslipidemia. We will continue Lipitor 80 mg p.o. at bedtime. 10. Diabetes, type 2. We will continue with insulin as per sliding scale protocol. Diabetic diet will be given. 11. Obesity. Dietary education given. Weight loss education given. 12. Gastroesophageal reflux disease. We will continue Protonix 40 mg p.o. daily. 13. Deep venous thrombosis prophylaxis not needed, because we are expecting discharge him soon. GI prophylaxis, the patient is on Protonix 40 mg p.o. daily. 14. Coronary artery disease with several stents. We will continue Effient 10 mg p.o. at bedtime along with statin, beta-michaela therapy, and aspirin 81 mg daily. DISPOSITION PLAN: Based on clinical course, likely within 24 to 48 hours. Plan of care discussed with the patient in detail. Job ID: [id number]
[2018-10-12] MEDS ORDERED: HumaLOG 300 UNITS/3 ML VIAL ONE (12:42)
[2018-10-12] MEDS: HumaLOG 300 UNITS/3 ML VIAL SC PRN ×2 (12:50→18:20)
[2018-10-12 13:56] LABS: Troponin I 0.134 ng/mL (< 0.028)
[2018-10-12 14:41] LABS: HBSAg Index 0.24 S/CO (0-0.99); Hep B Surf Ag Non-Reactive S/CO (NonReactive)
[2018-10-12] MEDS ORDERED: Midodrine HCl 5 MG TAB PO PRN (15:00)
[2018-10-12] MEDS: Sevelamer Carbonate 800 MG TAB PO SCH ×2 (16:01→19:18)
[2018-10-12] MEDS: methylPREDNISolone Sod Succ 40 MG VIAL IVP SCH ×3 (16:01→21:40)
[2018-10-12 17:47] VITALS: BMI 32.1
[2018-10-12] MEDS: Mometasone/Formoterol 120 PUFF INHALER INH SCH (18:01)
[2018-10-12] MEDS: Carvedilol 6.25 MG TAB PO SCH (19:17)
[2018-10-12] MEDS ORDERED: Prasugrel 10 MG TAB PO SCH (21:00)
[2018-10-12] MEDS ORDERED: Cinacalcet HCl 30 MG TAB PO SCH (21:00)
[2018-10-12] MEDS ORDERED: Gabapentin 300 MG CAP PO SCH (21:00)
[2018-10-12] MEDS ORDERED: Atorvastatin Calcium 40 MG TAB PO SCH (21:00)
--- NOTE | 2018-10-12 21:06 | CON ---
DATE OF CONSULTATION: 10/12/2018 INDICATION FOR CONSULTATION: A 57-year-old gentleman with hypertension, history of end-stage renal disease, history of coronary artery disease status post multiple stent placements with new onset atrial fibrillation with abnormal cardiac enzymes. HISTORY OF PRESENT ILLNESS: This very unfortunate 57-year-old gentleman has end-stage renal disease, has been on hemodialysis for quite some time. He recently was in the hospital, I believe on the 10 of September at which time he was volume overloaded and had shortness of breath with hyperkalemia. He had not been on dialysis for several days. He was unable to do dialysis on the previous day before that due to the access not being able to be functional. At that time, a left IJ catheter was placed and dialysis was performed on urgent basis. At this time, he presents again with increasing shortness of breath. He denies any chest pain. He had no nausea and he says he is volume overloaded because they were unable to take enough fluid off. He underwent dialysis, I believe yesterday, the day before, and he has now seen Dr. Amato today and will undergo dialysis again today. Also noted on the EKG that he now has atrial fibrillation. I do not see any previous indication he has had atrial fibrillation. His heart rate also is well controlled in the 80s, but blood pressure also now has been somewhat low 102/60, but the repeated was 148/100. His respiratory rate is 15. He appears to be comfortable. He denies any shortness of breath to me at this time and is awaiting dialysis. He denies any chest pain. He has undergone stent placement x10. He has been seen by Dr. Bates in the past and also Dr. Wallace on consultation. He had an echocardiogram performed he said in May of this year with Dr. Bates, I do not have the results. Previous echo here showed an ejection fraction of 40% to 45% with lateral wall hypokinesis and mild mitral and tricuspid valve regurgitation. PAST MEDICAL HISTORY: Significant for the diabetes, coronary artery disease, end-stage renal disease, COPD, cataract surgery. He has had retinal surgery. He has obviously the history of hypertension. He has had AV fistulas placed. He has had amputation of the right great toe as well as the 4th, 3rd and 5th digits. He has had a cardiac catheterization and multiple stent placements. He has had cataract surgery. SOCIAL HISTORY: He is . He has children, who are alive and well. He has no alcohol or tobacco abuse. FAMILY HISTORY: Unremarkable for any early heart disease. ALLERGIES: HE IS ALLERGIC TO PENICILLIN AND TRAMADOL. MEDICATIONS: Prior to admission include; 1. Atorvastatin. 2. Aspirin. 3. Novolin insulin. 4. Effient. 5. Pantoprazole. 6. Reglan. 7. Ipratropium/albuterol. 8. Symbicort. 9. Coreg. 10. Keflex. 11. Gabapentin. 12. Midodrine. REVIEW OF SYSTEMS: He mainly complains of shortness of breath. He denies any new HEENT complaints. However, he is legally blind. I believe he has difficulties seeing. He had no other hemoptysis noted. He denies any tobacco abuse. GI: No nausea, vomiting, or diarrhea. : No complaints such as dysuria or hematuria. MUSCULOSKELETAL: No significant complaints. He did not have any edema. He has had some stent placements apparently in the legs, he says in the left leg, but unsure as to when that was done, he said it was several years ago. He denies any claudication symptoms, but actually he does not get very much activity. NEUROLOGIC: No history of seizure or syncope. PHYSICAL EXAMINATION: GENERAL: Reveals an elderly gentleman, who is in no acute distress at this time. He is alert, he is oriented. VITAL SIGNS: Blood pressure is 148/101, heart rate is in the 80s, respiratory rate 15. He is afebrile. HEENT: Show head to be normocephalic and atraumatic. Carotid pulses are present. I did not hear any bruits. CHEST: Actually clear. I did not hear any rales, rhonchi, or wheezing at this time. CARDIOVASCULAR: Reveals an irregular irregular rhythm. Heart rate is under good control. There are no gross murmurs noted. ABDOMEN: Shows morbid obesity, somewhat tympanic. I did not palpate any masses. Positive bowel sounds are present. EXTREMITIES: Show no clubbing or cyanosis. No lower extremity edema is noted. Femoral pulses are present. Popliteal pulses are difficult to palpate and I cannot palpate pedal pulses at this time. Extremities are warm. SKIN: Warm and dry. NEUROLOGIC: The patient appears to be intact. LABORATORY DATA: Show a sodium of 139, potassium of 4.0, BUN was 41 with a creatinine of 9.8, blood sugar was 322. Troponin I is 0.162, the next was 0.142 , next was 0.151. BNP was 1061. His hemoglobin was 12.3 with hematocrit of 38.3 , WBC of 6.1, and platelet count of 174,000. EKG shows atrial fibrillation with nonspecific ST-segment changes and incomplete right bundle-branch block. IMPRESSION: 1. New onset atrial fibrillation, the rate is under relatively good control. We will need to consider whether or not to start this patient on anticoagulation. We will discuss with the roller leveler how they would best proceed since the patient will undergo dialysis today. We will try to obtain records from Dr. Bates's office to see whether or not this is actually new onset atrial fibrillation, whether or not this is an ongoing process. He has been on Effient apparently at home and I would imagine this may not be new onset atrial fibrillation, but there is no indication on his last consultation that there was any atrial fibrillation. We will try to obtain any old EKGs here from the hospital to determine whether or not this is new onset. 2. Abnormal cardiac enzymes, which may be due to the atrial fibrillation and also demand ischemia associated with his congestive heart failure due to volume overload which needs to undergo correction by dialysis. 3. Diabetes which to be dealt with by the primary care service. Blood sugar is significantly elevated. His BNP is also significantly elevated and again will need to be treated by dialysis. His calcium level is also elevated at 10.5. We will leave this up to the discretion of Dr. Amato. At this time, we will continue medical management and he will undergo dialysis. We will try to obtain the echocardiogram from Dr. Bates's office from May. Otherwise, we would continue him on the Effient as well as his other medications. Discussed with Dr. Bates, he has paroxysmal atrial fibrillation. Job ID: [id number] [facility]
[2018-10-12] MEDS: Sodium Chloride 0.9% 250 ML IV SCH ×2 (21:40→22:04)
[2018-10-12] MEDS ORDERED: Sodium Chloride 0.9% 250 ML IV SCH ×2 (21:45→22:15)
--- NOTE | 2018-10-13 01:39 | CON ---
DATE OF CONSULTATION: CONSULTING PHYSICIAN: Lm Lo MD REQUESTING PHYSICIAN: Dr. Calloway. REASON FOR CONSULTATION: Respiratory distress in a patient with end-stage renal disease. IMPRESSION: 1. End-stage renal disease, hemodialysis dependent, Thursday, Thursday, and Thursday, dialyzed yesterday. 2. Respiratory distress in the context of fluid overload. PLAN: The patient to be dialyzed today with emphasis on ultrafiltration in order to improve the patient's respiratory status do regular dialysis following back to the schedule of Thursday, Thursday, and Thursday. HISTORY OF PRESENT ILLNESS: This is a 57-year-old gentleman with end-stage renal disease, who was dialyzed yesterday presented here with shortness of breath. The patient claimed that not enough fluid was taken out yesterday at dialysis. The patient denies any fever, any nausea or vomiting. As stated above, the decision has been taken to involve Renal in the management of this case. PAST MEDICAL HISTORY: Significant for end-stage renal disease, type 2 diabetes, hyperparathyroidism, diastolic congestive heart failure. MEDICATIONS: Reviewed and as documented on [employer]. ALLERGIES: TO PENICILLIN. FAMILY HISTORY: Not significantly related to presenting illness. SOCIAL HISTORY: The patient is . No alcohol. No tobacco. No illicit drug use. REVIEW OF SYSTEMS: As documented in the body of the history. All other systems were reviewed and found not to be significantly related to presenting illness. PHYSICAL EXAMINATION: GENERAL: The patient was found to be in some respiratory distress noted with the following vital signs. VITAL SIGNS: Afebrile, temperature 98, pulse 101, respiratory rate of 16, O2 saturation of 96% with blood pressure 128/74. HEENT: Unremarkable. Moist oral mucosa. No conjunctival injection or icterus. NECK: Supple. CARDIOVASCULAR: First and second heart sounds were heard. RESPIRATORY: Clear to auscultation anteriorly. DIGESTIVE: Revealed a benign abdomen. EXTREMITIES: No peripheral edema. SKIN: No new gross rash. LYMPHATICS: No peripheral lymphadenopathy. SUMMARY: A 57-year-old gentleman with end-stage renal disease, who presented here with worsening shortness of breath. Thank you for this consultation. We will follow with you. Job ID: [id number]
[2018-10-13] MEDS: methylPREDNISolone Sod Succ 40 MG VIAL IVP SCH (06:00)
[2018-10-13] MEDS: HumaLOG 300 UNITS/3 ML VIAL SC PRN ×2 (06:00→14:00)
[2018-10-13 06:01] LABS: #Monocytes 0.6 thou/uL (0.11-0.59); #Neutrophils 8.1 thou/uL (1.40-6.50); %Lymphocytes 10.3 % (21.0-51.0); %Neutrophils 83.6 % (42.0-75.0); Hemoglobin 11.9 g/dL (14.0-18.0); Mean Corpuscular HGB CONC 31.8 g/dL (32.0-36.0); Mean Corpuscular Hemoglobin 31.2 pg (27.0-31.0); Mean Corpuscular Volume 98.1 fL (78.0-98.0); Mean Platelet Volume 8.1 fL (7.4-10.4); Platelet Count 163 thou/uL (130-400); RBC Distribution Width 15.1 % (11.5-14.5); Red Blood Cell (RBC) Count 3.81 mill/uL (4.70-6.10); White Blood Cell (WBC) Count 9.7 thou/uL (4.8-10.8)
[2018-10-13 06:24] LABS: ALT (SGPT) 16 U/L (8-55); AST (SGOT) 13 U/L (5-34); Albumin 4.2 g/dL (3.5-5.0); Alkaline Phosphatase 75 U/L (40-150); Anion Gap 23 mmol/L (10-20); BUN (Urea Nitrogen) 67 mg/dL (8.4-25.7); Bilirubin, Total 0.5 mg/dL (0.2-1.2); Calc. Creatinine Clearance 9 mL/min (70-130); Calcium 10.2 mg/dL (7.8-10.44); Carbon Dioxide 24 mmol/L (22-29); Chloride 92 mmol/L (98-107); Estimated GFR-MDRD 5; Glucose 249 mg/dL (70-105); Potassium 5.5 mmol/L (3.5-5.1); Protein, Total 8.2 g/dL (6.0-8.3); Sodium 133 mmol/L (136-145)
[2018-10-13] MEDS: Mometasone/Formoterol 120 PUFF INHALER INH SCH (06:28)
[2018-10-13] MEDS ORDERED: Non-Formulary Item 1 EACH (Metoclopramide Hcl [Metoclopramide Hcl] 5 MG) PO SCH (08:00)
[2018-10-13] MEDS ORDERED: predniSONE 20 MG TAB PO SCH (08:00)
[2018-10-13 08:14] VITALS: TEMP 98
[2018-10-13] MEDS: Carvedilol 6.25 MG TAB PO SCH ×2 (08:43→17:50)
[2018-10-13] MEDS: Metoclopramide HCl 10 MG TAB PO SCH ×3 (08:44→17:50)
[2018-10-13] MEDS: Sevelamer Carbonate 800 MG TAB PO SCH ×3 (08:44→17:50)
[2018-10-13] MEDS ORDERED: Aspirin 81 mg Enteric Coated Tablet PO SCH (09:00)
[2018-10-13] MEDS ORDERED: Folic Acid/Vit B Comp W-C PO SCH (09:00)
[2018-10-13] MEDS ORDERED: Non-Formulary Item 1 EACH (Budesonide/Formoterol Fumarate [Symbicort 160-4.5 Mcg Inhaler] INH SCH (09:00)
--- NOTE | 2018-10-13 09:22 | DIS ---
DATE OF ADMISSION: 10/12/2018 DATE OF DISCHARGE: 10/13/2018 PRIMARY CARE PHYSICIAN: Dr. Chris Berger. DISCHARGE DISPOSITION: Home. PRIMARY DISCHARGE DIAGNOSES: 1. Volume overload, dyspnea on exertion due to multifactorial etiology. 2. Acute on chronic systolic and diastolic congestive heart failure exacerbation due to volume overload, hyperkalemia. SECONDARY DISCHARGE DIAGNOSES: Hypertension, end-stage renal disease on hemodialysis, diabetes type 2, coronary artery disease, chronic systolic and diastolic heart failure, anemia of renal disease, secondary hyperparathyroidism of renal origin, obesity with body mass index 31, chronic obstructive pulmonary disease/asthma, paroxysmal atrial fibrillation. PRIMARY PROCEDURE/OPERATION: Hemodialysis. RADIOLOGICAL INVESTIGATION: Chest x-ray and CT angiography. SIGNIFICANT LABORATORY DATA: Hemoglobin 11.9, potassium 5.5, creatinine 11.96. LFT normal. Troponin 0.134. DISCHARGE MEDICATION: 1. Ventolin inhaler 2 puffs q.4 hourly p.r.n. 2. [place] 1 tablet q.6 hourly p.r.n. 3. DuoNeb q.6 hourly. 4. Zofran 8 mg q.8 hourly p.r.n. 5. Aspirin 81 mg daily. 6. Lipitor 80 mg p.o. at bedtime. 7. Nephro-Vern one tablet daily. 8. Symbicort 2 puffs inhalation b.i.d. 9. Coreg 3.125 mg b.i.d. 10. Vitamin D3 2000 units p.o. daily. 11. Cinacalcet 90 mg p.o. daily. 12. Gabapentin 300 mg p.o. at bedtime. 13. Human NPH insulin as directed. 14. Reglan 5 mg p.o. t.i.d. 15. Midodrine 5 mg p.o. daily p.r.n. 16. Effient 10 mg p.o. daily. 17. Phenergan with Codeine-dextromethorphan cough syrup q.i.d. p.r.n. 18. Renvela 800 mg p.o. t.i.d. 19. Zanaflex 4 mg at bedtime p.r.n. 20. Protonix 40 mg p.o. daily. 21. Prednisone 20 mg p.o. daily for 5 days. CONTRAINDICATION: The patient is not given LYN inhibitor or ARB in view of systolic heart failure because of hyperkalemia and ESRD, and that is why contraindicated. The patient is not on anticoagulation therapy because the patient is on aspirin and Effient. Cardiology to decide about chronic anticoagulation on discharge. CODE STATUS: Full code. INPATIENT LAMP REPLACER: 1. Dr. Amato was consulted for an ESRD. 2. Dr. Koch was consulted for dyspnea, as well as elevated troponin. TEST RESULT PENDING ON DISCHARGE: None. ALLERGIES: PENICILLIN. DISCHARGE PLAN: Posthospital, the patient will follow up with primary care physician, Dr. Amato, as well as his display designer, . HOSPITAL COURSE: A 57-year-old male who was having trouble with his dialysis at the [facility] Center. His AV fistula was not functioning properly and that is why he did not have any one time good dialysis and then, he required next-day dialysis, and this patient also has problem that because of low blood pressure, he is not able to get a proper dialysis in the form of fluid removal and that is why he is feeling mostly short of breath on exertion. He was also having fluid overload status during this admission. He was also having little bit asthma/COPD was acting him, which was treated with Solu-Medrol. We consulted Nephrology to do dialysis. We consulted Cardiology to give opinion about anticoagulation therapy in view of his paroxysmal atrial fibrillation. This patient is following outpatient basis with his display designer at [facility]. At this point by the time of dictation, decision regarding chronic anticoagulation is pending and we will defer that part to Cardiology. This patient is already on aspirin and Effient therapy. Rest of medication will be continued as per previous. The patient is on room air by the time of discharge. He is stable. He is up to his baseline level. His hypotension requires intermittent midodrine therapy. I have seen and examined the patient at bedside today. If Cardiology and Nephrology okay, then we will consider discharging him home later on today. There is no change in his physical examination. Please see my H and P from yesterday for further details. Job ID: [id number] [facility]TD[facility]
--- NOTE | 2018-10-13 11:06 | PDOC.PN ---
- Subjective Encounter Start Date: 10/13/18 Encounter Start Time: 07:10 -: old records requested/rev Patient seen and examined. No new complaints. No overnight events - Objective Resuscitation Status - Order Detail: 10/12/18 10:13 Resuscitation Status Routine Resuscitation Status: FULL: Full Resuscitation MAR Reviewed: Yes Vital Signs & Weight: Vital Signs (12 hours) Temp Pulse Resp BP BP Pulse Ox 10/13/18 08:00 98 F 95 20 119/72 93 L 10/13/18 06:28 88 16 10/13/18 04:15 98.4 F 90 18 101/64 98 10/13/18 00:45 94 18 105/69 10/12/18 23:25 89 18 96 Weight Weight 208 lb I&O: 10/12/18 10/13/18 10/14/18 06:59 06:59 06:59 Intake Total 1460 Balance 1460 Result Diagrams: 10/13/18 05:29 10/13/18 05:29 Additional Labs: Accuchecks 10/13/18 10/12/18 10/12/18 05:40 21:20 18:03 POC Glucose 260 H 311 H 447 H 10/12/18 12:42 POC Glucose 322 H EKG Reviewed by me: Yes Phys Exam - Physical Examination Constitutional: NAD HEENT: PERRLA, moist MMs, sclera anicteric Neck: no JVD, supple Respiratory: no wheezing, no rhonchi Cardiovascular: no significant murmur, irregular Gastrointestinal: soft, non-tender, no distention Musculoskeletal: no edema, pulses present Neurological: non-focal, normal sensation Psychiatric: normal affect, A&O x 3 Skin: no rash, normal turgor Dx/Plan (1) Acute on chronic systolic (congestive) heart failure Code(s): I50.23 - ACUTE ON CHRONIC SYSTOLIC (CONGESTIVE) HEART FAILURE Status : Acute Comment: EF 40-45% (2) Hyperkalemia Code(s): E87.5 - HYPERKALEMIA Status: Acute (3) Volume overload Code(s): E87.70 - FLUID OVERLOAD, UNSPECIFIED Status: Acute Comment: improved with dialysis (4) CAD (coronary artery disease) Code(s): I25.10 - ATHSCL HEART DISEASE OF [place] CORONARY ARTERY W/O ANG PCTRS Status: Chronic Comment: stable (5) DM type 2 (diabetes mellitus, type 2) Status: Chronic Comment: continue insulin sliding scale (6) ESRD on dialysis Code(s): N18.6 - END STAGE RENAL DISEASE; Z99.2 - DEPENDENCE ON RENAL DIALYSIS Status: Chronic Comment: nephrology following (7) HTN (hypertension) Code(s): I10 - ESSENTIAL (PRIMARY) HYPERTENSION Status: Chronic (8) PAF (paroxysmal atrial fibrillation) Code(s): I48.0 - PAROXYSMAL ATRIAL FIBRILLATION Status: Chronic - Plan cont current plan of care * HD done today * pt wants to see his cardiology after discharge regarding his cardiac problem * medication reviewed as below * symptomatic treatment * see discharge samaria. Review of Systems - Review of Systems ENT: negative: Ear Pain, Ear Discharge, Nose Pain, Nose Discharge, Nose Congestion, Mouth Pain, Mouth Swelling, Throat Pain, Throat Swelling, Other Respiratory: negative: Cough, Dry, Shortness of Breath, Hemoptysis, SOB with Excertion, Pleuritic Pain, Sputum, Wheezing Cardiovascular: negative: chest pain, palpitations, orthopnea, paroxysmal nocturnal dyspnea, edema, light headedness, other Gastrointestinal: negative: Nausea, Vomiting, Abdominal Pain, Diarrhea, Constipation, Melena, Hematochezia, Other Genitourinary: negative: Dysuria, Frequency, Incontinence, Hematuria, Retention , Other Musculoskeletal: negative: Neck Pain, Shoulder Pain, Arm Pain, Back Pain, Hand Pain, Leg Pain, Foot Pain, Other - Medications/Allergies Allergies/Adverse Reactions: Allergies Allergy/AdvReac Type Severity Reaction Status Date / Time penicillin V potassium Allergy Unknown Verified 10/12/18 15:40 [From Lily Cheek] tramadol Allergy Verified 10/12/18 15:40 Medications: Current Medications Acetaminophen (Tylenol) 650 mg PO Q4H PRN PRN Reason: Headache/Fever/Mild Pain (1-3) Hydrocodone Bitart/Acetaminophen ([place] 10/325) 1 tab PO Q6H PRN PRN Reason: Pain Albuterol/Ipratropium (Duoneb) 3 ml NEB [id number] Last Admin: 10/13/18 06:28 Dose: 3 ml Albuterol/Ipratropium (Duoneb) 3 ml NEB [id number] PRN PRN Reason: SOB &/or Wheezing Artificial Tears (Tears Naturale) 2 drop EA EYE PRN PRN PRN Reason: Dry Eyes Aspirin (Ecotrin) 81 mg PO DAILY [facility] Atorvastatin Calcium (Lipitor) 80 mg PO [facility] Last Admin: 10/12/18 23:02 Dose: 80 mg Bisacodyl (Dulcolax) 10 mg AL DAILYPRN PRN PRN Reason: Constipation Calcium Carbonate (Tums) 1,000 mg PO Q4H PRN PRN Reason: Heartburn or Indigestion Carvedilol (Coreg) 6.25 mg PO BID-[facility] Last Admin: 10/13/18 08:43 Dose: Not Given Cinacalcet (Sensipar) 90 mg PO [facility] Last Admin: 10/12/18 22:23 Dose: 90 mg Dextrose/Water (Dextrose 50%) 25 gm SLOW IVP PRN PRN PRN Reason: Hypoglycemia Epoetin Ariel-epbx (Retacrit) 7,500 unit SC WILLCALL [facility] Gabapentin (Neurontin) 300 mg PO [facility] Last Admin: 10/12/18 22:23 Dose: 300 mg Glucagon (Glucagon) 1 mg IM PRN PRN PRN Reason: Hypoglycemia Guaifenesin (Robitussin Sf) 200 mg PO Q4H PRN PRN Reason: Cough Hydralazine HCl (Apresoline) 10 mg SLOW IVP Q4H PRN PRN Reason: SBP > 180 and HR < 70 Dextrose/Water (D5w) 1,000 mls @ 0 mls/hr IV .Q0M PRN PRN Reason: Hypoglycemia Insulin Human Lispro (Humalog) 0 units SC .MODERATE SLIDING SC PRN PRN Reason: Moderate Correctional Scale Last Admin: 10/13/18 06:00 Dose: 6 unit Insulin Human Lispro (Humalog) 0 units SC .BEDTIME SLIDING SC PRN PRN Reason: Bedtime Correctional Scale Last Admin: 10/12/18 23:03 Dose: 4 unit Loperamide HCl (Imodium) 2 mg PO PRN PRN PRN Reason: Diarrhea/Loose Stools [facility]) [facility] Last Admin: 10/13/18 08:44 Dose: Not Given Midodrine (Proamatine) 5 mg PO TID PRN PRN Reason: SBP < 90 or DBP < 60 Last Admin: 10/12/18 23:02 Dose: 5 mg Mometasone Furoate/Formoterol Fumar (Dulera 200 Mcg/5 Mcg Inhaler) 2 puff INH BID-RT [facility] Nitroglycerin (Nitrostat) 0.4 mg SL Q5MIN PRN PRN Reason: Chest Pain Ondansetron HCl (Zofran Odt) 4 mg PO Q6H PRN PRN Reason: Nausea/Vomiting Ondansetron HCl (Zofran) 4 mg IVP Q6H PRN PRN Reason: Nausea/Vomiting Pantoprazole Sodium (Protonix) 40 mg PO DAILY [facility] Prasugrel (Effient) 10 mg PO HS [facility] Last Admin: 10/12/18 23:02 Dose: 10 mg Prednisone (Prednisone) 20 mg PO QAM-WM [facility] Senna/Docusate Sodium (Senokot S) 2 tab PO BID PRN PRN Reason: Constipation Sevelamer Carbonate (Renvela) 800 mg PO TID-[facility] Last Admin: 10/13/18 08:44 Dose: Not Given Sodium Chloride ([place] Nasal [place] 0.65%) 0 ml EA NARE QIDPRN PRN PRN Reason: Nasal Congestion Throat Lozenges (Cepastat Lozenges) 1 walt PO Q2H PRN PRN Reason: Sore Throat Vitamin B Complex/Vit C/Folic Acid (Nephro-Vern Tablet) 1 tab PO DAILY [facility] Zolpidem Tartrate (Ambien) 5 mg PO HSPRN PRN PRN Reason: Insomnia
[2018-10-13] MEDS ORDERED: Heparin 10,000 UNITS/ 10 ML VIAL ONE (12:00)
[2018-10-13 16:32] VITALS: BP 94/56
[2018-10-13] MEDS ORDERED: Mometasone/Formoterol 120 PUFF INHALER INH SCH (18:30)
--- NOTE | 2018-10-13 20:21 | PRG ---
DATE OF SERVICE: 10/13/2018 SUBJECTIVE: The patient was seen and examined, noted with the following vital signs. OBJECTIVE: VITAL SIGNS: Afebrile, temperature 98, pulse 95, blood pressure 94/56, and respiratory rate of 20. HEENT: Unremarkable. CARDIOVASCULAR SYSTEM: First and second heart sounds were heard. RESPIRATORY SYSTEM: Clear to auscultation. DIGESTIVE SYSTEM: Revealed a benign abdomen. Positive bowel sounds. EXTREMITIES: No peripheral edema. SKIN: No new gross rash. LYMPHATICS: No peripheral lymphadenopathy. IMPRESSION: 1. End-stage renal disease, on hemodialysis. 2. Respiratory distress which has improved. PLAN: 1. From the Renal standpoint, the patient is due for discharge after dialysis today. 2. Further management to be dependent on the clinical course. Job ID: [id number]
--- NOTE | 2018-10-16 12:12 | EKG ---
Test Reason : Blood Pressure : / mmHG Vent. Rate : 093 BPM Atrial Rate : 093 BPM P-R Int : 182 ms QRS Dur : 088 ms QT Int : 378 ms P-R-T Axes : 055 023 064 degrees QTc Int : 469 ms Normal sinus rhythm Possible Left atrial enlargement Prolonged QT Abnormal ECG Confirmed by CRIS WRIGHT [id number]), web content editor MARY SINGH ([id number]) on 10/16/2018 12:12:17 PM Referred By: Confirmed By:CRIS WRIGHT
== END 2018-10-13 17:50 | disposition home or self-care (01) ==
LOC: ERS 02:39 → ERHOLD 07:46 → 2SW 15:24
PROVIDERS: ADMIT Internal Medicine; ATTEND Internal Medicine
DX: E87.70 Fluid overload, unspecified (principal); E87.5 Hyperkalemia; I13.2 Hypertensive heart and chronic kidney disease with heart failure and with stage 5 chronic kidney disease, or end stage renal disease; E11.22 Type 2 diabetes mellitus with diabetic chronic kidney disease; N18.6 End stage renal disease; I50.43 Acute on chronic combined systolic (congestive) and diastolic (congestive) heart failure; D63.1 Anemia in chronic kidney disease; I25.10 Atherosclerotic heart disease of native coronary artery without angina pectoris; N25.81 Secondary hyperparathyroidism of renal origin; I48.0 Paroxysmal atrial fibrillation; J44.9 Chronic obstructive pulmonary disease, unspecified; I95.89 Other hypotension; E78.5 Hyperlipidemia, unspecified; E66.9 Obesity, unspecified; R74.8 Abnormal levels of other serum enzymes; R79.89 Other specified abnormal findings of blood chemistry; Z68.31 Body mass index [BMI] 31.0-31.9, adult; Z99.2 Dependence on renal dialysis; Z95.5 Presence of coronary angioplasty implant and graft; Z88.0 Allergy status to penicillin; Z88.5 Allergy status to narcotic agent; Z79.4 Long term (current) use of insulin; Z79.82 Long term (current) use of aspirin; Z79.899 Other long term (current) drug therapy
CPT/HCPCS: 71045; 71275; 80053 ×2; 82553; 82962 ×2; 83880; 84484 ×2; 85025 ×2; 87340; 93005; 93306; 94640 ×3; 96374; 96376 ×2; 99285; G0378 ×2; 36415; 36416; 90935; G0257; J1644; J2405; J2920; J2930; J7512; J7620; J8597; Q0162; Q9966

== ENCOUNTER 2019-04-08 12:55 | Inpatient (IN) | payer MEDICARE ==
[2019-04-08 14:53] LABS: #Eosinphils 0.3 thou/uL (0.0-0.7); #Lymphocytes 1.6 thou/uL (1.20-3.40); #Monocytes 0.4 thou/uL (0.11-0.59); #Neutrophils 4.9 thou/uL (1.40-6.50); %Basophils 0.3 % (0.0-1.0); %Eosinophils 3.9 % (0.0-10.0); %Lymphocytes 22.2 % (21.0-51.0); %Monocytes 5.7 % (0.0-10.0); %Neutrophils 67.9 % (42.0-75.0); Hemoglobin 12.4 g/dL (14.0-18.0); Mean Corpuscular HGB CONC 32.9 g/dL (32.0-36.0); Mean Corpuscular Hemoglobin 30.9 pg (27.0-31.0); Mean Corpuscular Volume 93.9 fL (78.0-98.0); Mean Platelet Volume 7.9 fL (7.4-10.4); Platelet Count 197 thou/uL (130-400); RBC Distribution Width 13.9 % (11.5-14.5); Red Blood Cell (RBC) Count 4.01 mill/uL (4.70-6.10); White Blood Cell (WBC) Count 7.2 thou/uL (4.8-10.8)
[2019-04-08 15:18] LABS: ALT (SGPT) 10 U/L (8-55); AST (SGOT) 11 U/L (5-34); Alkaline Phosphatase 75 U/L (40-110); Anion Gap 21 mmol/L (10-20); BUN (Urea Nitrogen) 79 mg/dL (8.4-25.7); Bilirubin, Total 0.6 mg/dL (0.2-1.2); Calc. Creatinine Clearance 0 mL/min (70-130); Calcium 8.7 mg/dL (7.8-10.44); Carbon Dioxide 25 mmol/L (22-29); Chloride 95 mmol/L (98-107); Estimated GFR-MDRD 4; Glucose 432 mg/dL (70-105); Potassium 6.1 mmol/L (3.5-5.1); Sodium 135 mmol/L (136-145)
[2019-04-08 16:36] LABS: Actual Bicarbonate (HCO3a) 20.3 mEq/L (22-28); Analyzer IN Cardio ER; CO2 Tension 38.6 mmHg (35.0-45.0); Calcium, Ionized 1.05 mmol/L (1.12-1.30); Carboxyhemoglobin (COHb) 0.7 gm% (0.0-3.0); Hemoglobin (Hb) 12.8 g/dL (14.0-18.0); O2 Tension (PaO2) 125.5 mmHg (80.0-100.0); Potassium - ABG Lab 5.33 mmol/L (3.70-5.30); pH, Arterial 7.34 (7.35-7.45)
[2019-04-08 16:37] LABS: Puncture Site RB
[2019-04-08 17:48] LABS: CKMB 2.9 ng/mL (0-6.6)
--- NOTE | 2019-04-08 18:27 | RAD ---
PORTABLE CHEST ONE VIEW: 04/08/19 at 5:56 p.m. HISTORY: Cogged fistula FINDINGS/IMPRESSION: Comparison made with exam of previous day. The heart size is enlarged. There are mild patchy opacities in the right mid and lower and left mid l archie zones. There is mild pulmonary vascular congestion. No pneumothoraces or large effusions are seen . POS: [facility]
[2019-04-08 18:38] LABS: HBSAg Index 0.25 S/CO (0-0.99); Hep B Surf Ag Non-Reactive S/CO (NonReactive)
[2019-04-08] MEDS ORDERED: HumaLOG 300 UNITS/3 ML VIAL SC PRN (19:05)
[2019-04-08] MEDS ORDERED: Dextrose 50% Abboject 50 ML SYRINGE SLOW IVP PRN (19:05)
[2019-04-08] MEDS ORDERED: Dextrose 5% in Water 1,000 ML IV PRN (19:05)
[2019-04-08] MEDS ORDERED: HumaLOG 300 UNITS/3 ML VIAL SC SCH (19:15)
--- NOTE | 2019-04-08 19:17 | PDOC.EVN ---
Event Note - Event Note Event Note: Patient reviewed with EVELIA Lowry. Patient assessed. Has volume overload. Lungs relatively clear. K+ is high and he is hyperglycemic. Will be going to urgent HD per Dr. Simpson. In the meantime, will give insulin and calcium. EKG does not have peaked T waves.
--- NOTE | 2019-04-08 20:18 | CON ---
DATE OF CONSULTATION: 04/08/2019 SERVICE: Nephrology. REASON FOR CONSULTATION: End-stage renal disease management and hyperkalemia. REQUESTING PHYSICIAN: Dr. Brown. CHIEF COMPLAINT: AV fistula malfunction. HISTORY OF PRESENT ILLNESS: A 58-year-old male with known history of coronary artery disease, diabetes, as well as end-stage renal disease, on hemodialysis via left arm AV fistula, brought in from the dialysis unit due to AV fistula malfunction; reportedly, clotted out. The patient also reported some shortness of breath and difficulty breathing. The patient initially was doing well on oxygen supplementation, but later required BiPAP. Further evaluation revealed hyperkalemia of 6.1 without EKG changes. The patient denied fever or chills, but was admitted to chest discomfort. There is no history of nausea or vomiting or change in bowel habit. The patient has been compliant with outpatient dialysis with last dialysis being on April 05, 2019. PAST MEDICAL HISTORY: 1. End-stage renal disease. 2. Coronary artery disease. 3. Type 2 diabetes mellitus. 4. COPD. 5. Dyslipidemia. PAST SURGICAL HISTORY: 1. Percutaneous coronary intervention. 2. Left arm AV fistula creation. 3. Right great toe amputation. 4. Right third and fifth toes amputation. 5. Bilateral cataract surgery. FAMILY HISTORY: Significant for lung cancer in mother and diabetes in multiple family members. There is also history of hypertension in multiple family members. SOCIAL HISTORY: The patient denied alcohol, smoking, or recreational drug use. Lives with spouse. ALLERGIES: PENICILLIN. HOME MEDICATIONS: 1. Aspirin 81 mg p.o. daily. 2. Lipitor 80 mg p.o. daily. 3. Effient 10 mg p.o. daily. 4. Protonix 40 mg p.o. daily. 5. DuoNeb 3 mL every 6 hours p.r.n. 6. Symbicort two puffs b.i.d. 7. Carvedilol 3.125 p.o. b.i.d. 8. Renvela 800 mg t.i.d. 9. Gabapentin 300 mg p.o. daily at bedtime. REVIEW OF SYSTEMS: 12-point review of system was negative other than pertinent positives and negatives included in the history of present illness. PHYSICAL EXAMINATION: GENERAL: Obese male, in [id number] respiratory distress. Afebrile. Anicteric. Acyanotic. HEENT: Normocephalic, atraumatic. Oral mucosa is moist. NECK: Short neck noted. No obvious JVD appreciated. CARDIOVASCULAR: Regular rhythm and rate with normal heart sounds one and two. RESPIRATORY: Fair air entry bilaterally with few bibasilar crackles posteriorly. GI: Obese, soft, nontender, nondistended with normal bowel sounds. EXTREMITIES: Left forearm AV fistula noted with no thrill. Otherwise, extremities are grossly normal with no overt pitting edema. 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 Cranial nerves 2 through 12 are grossly intact. DIAGNOSTIC DATA: CBC showed WBC count of 7.2, hemoglobin of 12.4, MCV of 93.9, platelet of 197. Arterial blood gas showed pH of 7.34, pCO2 of 38.6, pO2 of 125, and this was done on BiPAP 03/11. Ionized calcium is 1.05. CMP showed sodium 135, potassium 6.1, chloride 95, CO2 of 25, BUN 79, creatinine 15.94, glucose 432, calcium 8.7, total bilirubin 0.6, AST 11, ALT 10, alkaline phosphatase 75, total protein 8.0, albumin 4.0. Cardiac markers showed elevated troponin of 0.044 and CK-MB of 2.9. Chest x-ray showed enlarged heart with mild patchy opacities in the right mid and lower as well as left mid zones consistent with pulmonary congestion. No pneumothorax or large pleural effusion noted. ASSESSMENT: 1. Hyperkalemia. 2. Volume overload with pulmonary congestion in end-stage renal disease patient. 3. Acute respiratory failure with hypoxia due to fluid overload and pulmonary congestion. 4. Acute congestive heart failure. 5. End-stage renal disease, on hemodialysis Thursday, Thursday, and Thursday. The patient could not dialyze earlier today due to AV fistula malfunction. 6. Left arm AV fistula thrombosis. PLAN: We will treat hyperkalemia medically with insulin and calcium gluconate. We will get a temporary dialysis catheter since thrombectomy could not be done. We will dialyze the patient as soon as possible. We can continue respiratory support with BiPAP and oxygen. Further treatment as per primary attending. We will follow along with you. Many thanks for involving us in the care of this patient. Job ID: [id number]
[2019-04-08 21:21] LABS: CKMB 2.8 ng/mL (0-6.6)
[2019-04-08 23:05] VITALS: BMI 34.5
--- NOTE | 2019-04-08 23:35 | CON ---
DATE OF CONSULTATION: 04/08/2019 REASON FOR CONSULTATION: Tunneled dialysis catheter placement. CHIEF COMPLAINT: "My fistula isn't working." HISTORY OF PRESENT ILLNESS: The patient is a 58-year-old gentleman, who has a history of coronary artery disease, diabetes, end-stage renal disease and is on hemodialysis. He was brought in from the dialysis center secondary to a thrombosed left forearm AV fistula. He was also having some difficulty breathing and shortness of breath. He has been placed on BiPAP. In the emergency room, he was found to have hyperkalemia up to 6.1. No EKG changes. Thinks he may be having some chest pain. PAST MEDICAL HISTORY: Renal disease, coronary artery disease, type 2 diabetes, chronic obstructive pulmonary disease, and dyslipidemia. PAST SURGICAL HISTORY: Coronary artery stenting, left AV fistula creation, right great toe amputation, right third and fifth toe amputation, and bilateral cataracts. FAMILY HISTORY: Lung cancer and diabetes. SOCIAL HISTORY: The patient denies smoking or alcohol use. ALLERGIES: PENICILLIN. MEDICATIONS: 1. Aspirin 81 mg. 2. Lipitor 80 mg. 3. Effient 10 mg. 4. Protonix 40 mg. 5. DuoNeb every 6 hours. 6. Symbicort 2 puffs twice a day. 7. Carvedilol 3.125 mg twice a day. 8. Renvela 800 mg three times a day. 9. Gabapentin 300 mg at night. REVIEW OF SYSTEMS: Negative for nausea and vomiting. No fevers or chills. Otherwise, 10-system 2-point per system negative other than HPI. PHYSICAL EXAMINATION: GENERAL: Obese gentleman, who is having some shortness of breath. HEENT: Head is normocephalic and atraumatic. NECK: Supple with midline trachea. He has scars with prior tunneled dialysis catheter placement on both sides. HEART: Regularly regular. LUNGS: Difficulty to fully assess secondary to body habitus and noise within the room, but there appears to be air movement bilaterally. ABDOMEN: Soft, nontender, and nondistended. Normoactive bowel sounds. EXTREMITIES: His left upper extremity has an obvious AV fistula with no thrill or bruits. LABORATORY DATA: CBC demonstrates a normal white count, hemoglobin is 12.4. Metabolic panel; potassium 6.1. Chest x-ray demonstrates some cardiomegaly and pulmonary congestion. ASSESSMENT: 1. Hyperkalemia in a patient with end-stage renal disease. 2. Nonfunctioning forearm fistula-the patient already has a temporary dialysis catheter. We will attempt to take the patient to the operating room tomorrow for tunneled catheter if he is medically stable. PLAN: N.p.o. after midnight. Medical management. Re-evaluate the patient in the morning for potential tunneled catheter placement. Job ID: [id number]
[2019-04-09 04:54] LABS: #Eosinphils 0.2 thou/uL (0.0-0.7); #Lymphocytes 1.5 thou/uL (1.20-3.40); #Monocytes 0.6 thou/uL (0.11-0.59); #Neutrophils 6.4 thou/uL (1.40-6.50); %Basophils 0.4 % (0.0-1.0); %Eosinophils 2.2 % (0.0-10.0); %Lymphocytes 16.9 % (21.0-51.0); %Monocytes 7.1 % (0.0-10.0); %Neutrophils 73.4 % (42.0-75.0); Hemoglobin 11.2 g/dL (14.0-18.0); Mean Corpuscular HGB CONC 33.4 g/dL (32.0-36.0); Mean Corpuscular Hemoglobin 30.8 pg (27.0-31.0); Mean Corpuscular Volume 92.2 fL (78.0-98.0); Mean Platelet Volume 8.6 fL (7.4-10.4); Platelet Count 172 thou/uL (130-400); RBC Distribution Width 13.9 % (11.5-14.5); Red Blood Cell (RBC) Count 3.64 mill/uL (4.70-6.10); White Blood Cell (WBC) Count 8.7 thou/uL (4.8-10.8)
[2019-04-09 05:16] LABS: Anion Gap 18 mmol/L (10-20); BUN (Urea Nitrogen) 38 mg/dL (8.4-25.7); Calc. Creatinine Clearance 13 mL/min (70-130); Calcium 8.3 mg/dL (7.8-10.44); Carbon Dioxide 21 mmol/L (22-29); Chloride 100 mmol/L (98-107); Estimated GFR-MDRD 7; Glucose 176 mg/dL (70-105); Potassium 4.4 mmol/L (3.5-5.1); Sodium 135 mmol/L (136-145)
[2019-04-09] MEDS ORDERED: PROVENTIL INHALER 6.7 G (200 INHALATIONS) INH PRN (07:41)
[2019-04-09] MEDS ORDERED: Midodrine HCl 5 MG TAB PO PRN (07:41)
[2019-04-09] MEDS ORDERED: Ondansetron ODT 8 MG TAB SL PRN (07:41)
[2019-04-09] MEDS ORDERED: Gabapentin 300 MG CAP PO PRN (07:41)
[2019-04-09] MEDS ORDERED: hydrALAZINE 20 MG/ML VIAL SLOW IVP PRN (07:43)
[2019-04-09] MEDS ORDERED: Artificial Tears 18 DROP/0.9 ML EA EYE PRN (07:43)
[2019-04-09] MEDS ORDERED: Sodium Chloride 0.65% Nasal 44 ML BOT EA NARE PRN (07:43)
[2019-04-09] MEDS ORDERED: Diabetic Tussin 200 MG/10 ML UDCUP PO PRN (07:43)
[2019-04-09] MEDS ORDERED: Loratadine 10 MG TAB PO PRN (07:43)
[2019-04-09] MEDS ORDERED: Cepastat Lozenges 1 LOZ PO PRN (07:43)
[2019-04-09] MEDS: Famotidine/PF 20 mg/2ml Vial SLOW IVP SCH (07:50)
[2019-04-09] MEDS: Metoclopramide HCl 10 MG TAB PO SCH ×3 (08:05→19:10)
[2019-04-09] MEDS: Sevelamer Carbonate 800 MG TAB PO SCH ×3 (08:05→19:10)
[2019-04-09] MEDS: Aspirin 81 mg Enteric Coated Tablet PO SCH (08:05)
[2019-04-09] MEDS: Cephalexin 250 MG CAP PO SCH ×3 (08:05→20:33)
[2019-04-09] MEDS: Folic Acid/Vit B Comp W-C PO SCH (08:05)
[2019-04-09] MEDS: Carvedilol 3.125 MG TAB PO SCH ×2 (08:05→19:11)
[2019-04-09] MEDS: Prasugrel 10 MG TAB PO SCH (08:06)
--- NOTE | 2019-04-09 08:23 | PRG ---
DATE OF SERVICE: 04/09/2019 SERVICE: Nephrology. SUBJECTIVE: A 58-year-old male with end-stage renal disease, on hemodialysis, hypertension, diabetes, who was admitted with acute respiratory failure, hyperkalemia and inability to dialyze due to dialysis access malfunction. The patient was started on BiPAP and subsequently had emergent hemodialysis via a temporary dialysis catheter with improvement of respiratory distress. Feels better. Currently off oxygen. Tunneled dialysis catheter is planned. No new problem. Denied nausea, vomiting, chest pain, shortness of breath, or dizziness. OBJECTIVE: VITAL SIGNS: Temperature 98.9, pulse 84, respiratory rate 18, SpO2 of 97% on room air, blood pressure is 125/62. GENERAL: Obese male, in no obvious distress. Afebrile. Anicteric. Acyanotic. HEENT: Normocephalic, atraumatic. Oral mucosa is moist. NECK: Supple with no JVD. CARDIOVASCULAR: Regular rhythm and rate with normal heart sounds 1 and 2. RESPIRATORY: Good air entry bilateral with few transmitted breath sounds posteriorly. No obvious rhonchi or use of accessory muscles appreciated. GI: Obese, soft, nontender, nondistended with normal bowel sounds. EXTREMITIES: Left forearm AV graft with mild tenderness, but no thrill noted. Lower extremities are grossly normal with no edema or erythema. 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 Cranial nerves 2 through 12 are grossly intact. DIAGNOSTIC DATA: CBC showed WBC count of 8.7, hemoglobin of 11.2, platelet of 172. BMP showed sodium 135, potassium 4.4, chloride 100, CO2 of 21, BUN 38, creatinine , glucose is 176, calcium is 8.3. ASSESSMENT: 1. Acute respiratory failure due to acute diastolic heart failure. 2. Acute diastolic heart failure: Due to fluid overload. Acute myocardial infarction cannot be ruled out given troponin elevation. 3. Hyperkalemia: Resolved with hemodialysis. 4. End-stage renal disease, on hemodialysis. Status post treatment. 5. Volume overload: Due to missed dialysis. Resolved with treatment. 6. Left forearm arteriovenous graft thrombosis. We will put a consult for Intervention Radiology for possible thrombectomy. We will also get a tunneled dialysis catheter placement to facilitate outpatient dialysis while the AV fistula is treated. 7. Disposition: Unless patient receives significant amount of IV fluid during the tunneled dialysis catheter placement, the patient can be discharged from Nephrology point of view to follow up at his usual dialysis unit for continuation of outpatient treatment once the tunneled dialysis catheter is placed. Once tunneled dialysis catheter is placed, the right groin temporary catheter can be removed. Further treatment as per primary attending. We will continue to follow along with you. Job ID: [id number]
[2019-04-09] MEDS ORDERED: Ondansetron PF 4 MG/2 ML Vial ONE (10:23)
[2019-04-09] MEDS ORDERED: PROPOFOL 200 MG/20 ML VIAL ONE (10:23)
[2019-04-09] MEDS ORDERED: Lidocaine 1% PF 5 ML VIAL ONE (10:23)
--- NOTE | 2019-04-09 10:42 | PDOC.HOSPP ---
- Subjective Encounter Date: 04/09/19 Encounter Time: 09:45 Subjective: Patient seen and examined. No new complaints. No overnight events - Objective Vital Signs & Weight: Vital Signs (12 hours) Temp Pulse Resp Pulse Ox 04/09/19 08:00 98.4 F 90 L 04/09/19 07:06 84 18 100 04/09/19 04:00 98.9 F 04/09/19 00:21 101 H 20 100 04/09/19 00:00 99.1 F Weight Weight 218 lb 12.8 oz Most Recent Monitor Data Heart Rate from ECG 93 NIBP 100/48 NIBP BP-Mean 65 Respiration from ECG 16 SpO2 85 I&O: 04/08/19 04/09/19 04/10/19 06:59 06:59 06:59 Intake Total 480 Output Total 2500 -2019 Result Diagrams: 04/09/19 04:27 04/09/19 04:27 Additional Labs: Accuchecks 04/09/19 04/08/19 05:37 22:56 POC Glucose 178 H 200 H Radiology Reviewed by me: Yes EKG Reviewed by me: Yes Hospitalist ROS - Review of Systems ENT: denies: ear pain, ear discharge, nose pain, nose discharge, nose congestion , mouth pain, mouth swelling, throat pain, throat swelling, other Respiratory: denies: cough, dry, shortness of breath, hemoptysis, SOB with excertion, pleuritic pain, sputum, wheezing, other Cardiovascular: denies: chest pain, palpitations, orthopnea, paroxysmal noc. dyspnea, edema, light headedness, other Gastrointestinal: denies: nausea, vomiting, abdominal pain, diarrhea, constipation, melena, hematochezia, other Genitourinary: denies: dysuria, frequency, incontinence, hematuria, retention, other Musculoskeletal: denies: neck pain, shoulder pain, arm pain, back pain, hand pain, leg pain, foot pain, other - Medication Medications: Active Medications Generic Name Dose Route Start Last Admin Trade Name Freq PRN Reason Stop Dose Admin Albuterol/Ipratropium 3 ml 04/09/19 01:00 04/09/19 07:06 Duoneb NEB 3 ml [id number] TAO Administration Aspirin 81 mg 04/09/19 09:00 04/09/19 08:05 Ecotrin PO Not Given DAILY TAO Carvedilol 3.125 mg 04/09/19 08:00 04/09/19 08:05 Coreg PO Not Given BID-WM [facility] Cephalexin 500 mg 04/09/19 09:00 04/09/19 08:05 Keflex PO Not Given TID TAO Famotidine 20 mg 04/09/19 09:00 04/09/19 07:50 Pepcid SLOW IVP 20 mg DAILY TAO Administration Metoclopramide HCl 5 mg 04/09/19 08:00 04/09/19 08:05 Reglan PO Not Given TID-WM [facility] Pantoprazole Sodium 40 mg 04/09/19 09:00 04/09/19 08:06 Protonix PO Not Given DAILY [facility] Prasugrel 5 mg 04/09/19 09:00 04/09/19 08:06 Effient PO Not Given DAILY [facility] Sevelamer Carbonate 800 mg 04/09/19 08:00 04/09/19 08:05 Renvela PO Not Given TID-WM [facility] Vitamin B Complex/Vit C/Folic Acid 1 tab 04/09/19 09:00 04/09/19 08:05 Nephro-Vern Tablet PO Not Given DAILY [facility] - Exam General Appearance: NAD, awake alert Eye: PERRL, anicteric sclera ENT: normocephalic atraumatic, no oropharyngeal lesions Neck: supple, symmetric, no JVD, no thyromegaly Heart: RRR, no murmur, no gallops, no rubs Respiratory: CTAB, no wheezes, no rales, no ronchi Gastrointestinal: soft, non-tender, non-distended, no palpable masses Extremities: no cyanosis, no clubbing Skin: normal turgor, no lesions Neurological: no focal deficits Musculoskeletal: normal tone, normal strength Psychiatric: normal affect, normal behavior Hosp A/P (1) Acute on chronic diastolic ACC/AHA stage C congestive heart failure Code(s): I50.33 - ACUTE ON CHRONIC DIASTOLIC (CONGESTIVE) HEART FAILURE Status : Acute (2) Acute respiratory failure with hypoxia Code(s): J96.01 - ACUTE RESPIRATORY FAILURE WITH HYPOXIA Status: Acute (3) AV fistula thrombosis Code(s): T82.868A - THROMBOSIS DUE TO VASCULAR PROSTH DEV/GRFT, INIT Status: Acute (4) Hyperkalemia Code(s): E87.5 - HYPERKALEMIA Status: Resolved (5) Volume overload Code(s): E87.70 - FLUID OVERLOAD, UNSPECIFIED Status: Resolved (6) CAD (coronary artery disease) Code(s): I25.10 - ATHSCL HEART DISEASE OF [place] CORONARY ARTERY W/O ANG PCTRS Status: Chronic (7) DM type 2 (diabetes mellitus, type 2) Status: Chronic (8) ESRD on dialysis Code(s): N18.6 - END STAGE RENAL DISEASE; Z99.2 - DEPENDENCE ON RENAL DIALYSIS Status: Chronic (9) HTN (hypertension) Code(s): I10 - ESSENTIAL (PRIMARY) HYPERTENSION Status: Chronic (10) PAF (paroxysmal atrial fibrillation) Code(s): I48.0 - PAROXYSMAL ATRIAL FIBRILLATION Status: Chronic - Plan old records reviewed/req, continue antibiotics today tunneled HD catheter placement and then will remove femoral HD catheter, transfer to [facility], medication reviewed and continue to provide symptomatic treatment and supportive care, overall has improvement,
[2019-04-09] MEDS ORDERED: Lidocaine 1% w/Epinephrine 1:100K 20 ML VIAL ONE (12:08)
[2019-04-09] MEDS ORDERED: Lidocaine 2% PF 5 ML VIAL ONE (12:08)
[2019-04-09] MEDS ORDERED: EPINEPHrine 1 MG/ML AMP ONE (12:08)
[2019-04-09] MEDS ORDERED: Bupivacaine PF 0.5% 30 ML VIAL ONE (12:08)
[2019-04-09] MEDS ORDERED: Heparin 10,000 UNITS/1 ML VIAL ONE (12:08)
[2019-04-09] MEDS ORDERED: Sodium Chloride 0.9% 0 ML ONE (12:08)
--- NOTE | 2019-04-09 12:11 | PRG ---
DATE OF SERVICE: 04/09/2019 CHIEF COMPLAINT: "I feel better." HISTORY OF PRESENT ILLNESS: The patient is on hospital day #2 for a clotted left AV fistula. He received dialysis last night. He feels much better this morning. OBJECTIVE: VITAL SIGNS: Blood pressure 100/48, heart rate in the 90s, saturating on some supplemental oxygen. GENERAL: Much more comfortable than last night. LUNGS: Have crackles bilaterally. HEART: Regularly regular. ABDOMEN: Soft, nontender, nondistended. Normoactive bowel sounds. LABORATORY DATA: White blood cell count is still normal at 8.7, his creatinine has improved from 16 to 9, and his potassium is down to 4.4 this morning. ASSESSMENT: Renal failure with clotted left AV fistula - we will proceed to the operating room today for attempted tunneled dialysis catheter placement. Following that, we will remove his groin line. At that point, he may be discharged from a surgical perspective. PLAN: Tunneled catheter. Job ID: [id number]
[2019-04-09] MEDS ORDERED: Fentanyl 100 MCG/2 ML VIAL ONE (12:35)
[2019-04-09] MEDS ORDERED: Clindamycin/D5W 600 mg/50 ml Premix Bag ONE (12:44)
[2019-04-09] MEDS ORDERED: Promethazine HCl 25 MG/ML VIAL SLOW IVP PRN (14:12)
[2019-04-09] MEDS ORDERED: Ondansetron HCl/PF 4 MG/2 ML Vial IVP PRN (14:12)
[2019-04-09] MEDS ORDERED: Promethazine HCl 25 MG/ML VIAL IM PRN (14:12)
[2019-04-09] MEDS: HYDROcodone/Acetaminophen 10/325 mg Tablet PO PRN ×2 (16:14→22:00)
[2019-04-09] MEDS: Mometasone/Formoterol 120 PUFF INHALER INH SCH (19:28)
--- NOTE | 2019-04-09 20:06 | OP ---
DATE OF PROCEDURE: 04/09/2019 PREPROCEDURAL DIAGNOSIS: Chronic renal failure. POSTPROCEDURAL DIAGNOSIS: Chronic renal failure. PROCEDURE PERFORMED: Tunneled dialysis catheter placement under fluoroscopic guidance. ANESTHESIA: General. ESTIMATED BLOOD LOSS: 100. SPECIMENS: None. COMPLICATIONS: None. SPONGE AND NEEDLE COUNT: Correct. INDICATIONS FOR PROCEDURE: The patient is a 58-year-old gentleman who has a left forearm AV fistula that has thrombosed. He is needing a tunneled dialysis catheter until this can be repaired by Interventional Radiology. He already had a temporary dialysis catheter placed in the right femoral vein in the emergency room. FINDINGS: Successful placement of tunneled dialysis catheter in the right internal jugular vein. DESCRIPTION OF PROCEDURE: After written preprocedural informed consent, the patient was brought to the operating room, placed in the supine position and underwent general anesthesia. The right neck and chest were prepared and draped in sterile fashion. A time-out was performed. An ultrasound was used to identify the right internal jugular vein. A small skin incision was made and a subcutaneous pocket was created. A needle was brought in under direct visualization into the internal jugular vein. The wire was threaded forward and seen to go down the superior vena cava. A counterincision was made on the chest wall and the dialysis catheter was tunneled up to the neck incision. Dilators were placed over wire. The obturator was removed and the catheter was advanced forward. The breakaway sheath was removed. There was good aspiration of blood through both ports. Placement was confirmed by fluoroscopy. The catheter was secured to the patient's skin. The neck was closed with Monocryl and Dermabond. The drapes were removed. The right femoral temporary line was removed. Pressure was held for 10 minutes by the clock. There was no bleeding noted. Sterile dressings were applied. The patient was extubated and taken to the postanesthesia care area in good condition having tolerated the procedure well. Job ID: [id number]
[2019-04-09] MEDS ORDERED: Atorvastatin Calcium 40 MG TAB PO SCH (21:00)
[2019-04-10] MEDS: HYDROcodone/Acetaminophen 10/325 mg Tablet PO PRN (04:47)
[2019-04-10 07:11] LABS: #Basophils 0.1 thou/uL (0.0-0.2); #Eosinphils 0.2 thou/uL (0.0-0.7); #Lymphocytes 1.4 thou/uL (1.20-3.40); #Monocytes 0.7 thou/uL (0.11-0.59); #Neutrophils 4.7 thou/uL (1.40-6.50); %Basophils 0.8 % (0.0-1.0); %Eosinophils 3.4 % (0.0-10.0); %Lymphocytes 19.8 % (21.0-51.0); %Monocytes 9.4 % (0.0-10.0); %Neutrophils 66.6 % (42.0-75.0); Hemoglobin 11.2 g/dL (14.0-18.0); Mean Corpuscular HGB CONC 32.5 g/dL (32.0-36.0); Mean Corpuscular Hemoglobin 30.5 pg (27.0-31.0); Mean Corpuscular Volume 93.9 fL (78.0-98.0); Mean Platelet Volume 8.1 fL (7.4-10.4); Platelet Count 159 thou/uL (130-400); RBC Distribution Width 13.9 % (11.5-14.5); Red Blood Cell (RBC) Count 3.67 mill/uL (4.70-6.10); White Blood Cell (WBC) Count 7.1 thou/uL (4.8-10.8)
[2019-04-10 07:18] LABS: Anion Gap 17 mmol/L (10-20); BUN (Urea Nitrogen) 33 mg/dL (8.4-25.7); Calc. Creatinine Clearance 12 mL/min (70-130); Calcium 7.8 mg/dL (7.8-10.44); Carbon Dioxide 25 mmol/L (22-29); Chloride 97 mmol/L (98-107); Estimated GFR-MDRD 7; Glucose 165 mg/dL (70-105); Potassium 4.3 mmol/L (3.5-5.1); Sodium 135 mmol/L (136-145)
[2019-04-10] MEDS: Mometasone/Formoterol 120 PUFF INHALER INH SCH (07:24)
[2019-04-10] MEDS: Famotidine/PF 20 mg/2ml Vial SLOW IVP SCH (08:33)
[2019-04-10] MEDS: Cephalexin 250 MG CAP PO SCH ×2 (10:12→14:35)
[2019-04-10] MEDS: Sevelamer Carbonate 800 MG TAB PO SCH ×3 (10:12→18:23)
[2019-04-10] MEDS: Prasugrel 10 MG TAB PO SCH (10:12)
[2019-04-10] MEDS: Folic Acid/Vit B Comp W-C PO SCH (10:13)
[2019-04-10] MEDS: Metoclopramide HCl 10 MG TAB PO SCH ×3 (10:13→18:24)
[2019-04-10] MEDS: Carvedilol 3.125 MG TAB PO SCH ×2 (10:13→18:23)
[2019-04-10] MEDS: Aspirin 81 mg Enteric Coated Tablet PO SCH (10:13)
--- NOTE | 2019-04-10 11:41 | PDOC.HOSPP ---
- Subjective Encounter Date: 04/10/19 Encounter Time: 09:00 Subjective: Patient seen and examined. No overnight events pt has nausea and vomiting, no dyspnea - Objective Vital Signs & Weight: Vital Signs (12 hours) Temp Pulse Resp BP BP Pulse Ox 04/10/19 08:30 98.1 F 104 H 18 119/59 L 96 04/10/19 07:24 105 H 16 04/10/19 04:43 91 20 101/46 L 04/10/19 03:45 98 F 93 18 91/42 L 93 L 04/09/19 23:53 86 16 Weight Weight 208 lb 14.081 oz Most Recent Monitor Data Heart Rate from ECG 96 NIBP 125/81 NIBP BP-Mean 116 Respiration from ECG 14 SpO2 99 I&O: 04/09/19 04/10/19 04/11/19 06:59 06:59 06:59 Intake Total 480 240 Output Total 2500 1600 Balance -2019 Result Diagrams: 04/10/19 06:57 04/10/19 06:58 Additional Labs: Accuchecks 04/10/19 04/09/19 04/09/19 05:26 20:14 17:11 POC Glucose 178 H 157 H 133 H 04/09/19 11:13 POC Glucose 165 H EKG Reviewed by me: Yes Hospitalist ROS - Review of Systems ENT: denies: ear pain, ear discharge, nose pain, nose discharge, nose congestion , mouth pain, mouth swelling, throat pain, throat swelling, other Respiratory: denies: cough, dry, shortness of breath, hemoptysis, SOB with excertion, pleuritic pain, sputum, wheezing, other Cardiovascular: denies: chest pain, palpitations, orthopnea, paroxysmal noc. dyspnea, edema, light headedness, other Gastrointestinal: reports: nausea, vomiting. denies: abdominal pain, diarrhea, constipation, melena, hematochezia, other Genitourinary: denies: dysuria, frequency, incontinence, hematuria, retention, other Musculoskeletal: denies: neck pain, shoulder pain, arm pain, back pain, hand pain, leg pain, foot pain, other Skin: denies: rash, lesions, gaston, bruising, other - Medication Medications: Active Medications Generic Name Dose Route Start Last Admin Trade Name Freq PRN Reason Stop Dose Admin Hydrocodone Bitart/Acetaminophen 1 tab 04/09/19 07:41 04/10/19 04:47 Powell 10/325 PO 1 tab Q6H PRN Administration Moderate to Severe Pain (6-10) Albuterol/Ipratropium 3 ml 04/09/19 01:00 04/10/19 07:24 Duoneb NEB 3 ml [id number] TAO Administration Aspirin 81 mg 04/09/19 09:00 04/10/19 10:13 Ecotrin PO 81 mg DAILY TAO Administration Atorvastatin Calcium 80 mg 04/09/19 21:00 04/09/19 20:32 Lipitor PO 80 mg HS TAO Administration Carvedilol 3.125 mg 04/09/19 08:00 04/10/19 10:13 Coreg PO 3.125 mg BID-WM TAO Administration Cephalexin 500 mg 04/09/19 09:00 04/10/19 10:12 Keflex PO 500 mg TID TAO Administration Famotidine 20 mg 04/09/19 09:00 04/10/19 08:33 Pepcid SLOW IVP 20 mg DAILY TAO Administration Metoclopramide HCl 5 mg 04/09/19 08:00 04/10/19 10:13 Reglan PO 5 mg TID-WM TAO Administration Mometasone Furoate/Formoterol Fumar 2 puff 04/09/19 18:30 04/10/19 07:24 Dulera 200 Mcg/5 Mcg Inhaler INH 2 puff BID-RT TAO Administration Ondansetron HCl 8 mg 04/09/19 07:41 04/10/19 08:31 Zofran Odt SL 8 mg Q8HR PRN Administration Nausea Pantoprazole Sodium 40 mg 04/09/19 09:00 04/10/19 10:12 Protonix PO 40 mg DAILY TAO Administration Prasugrel 5 mg 04/09/19 09:00 04/10/19 10:12 Effient PO 5 mg DAILY TAO Administration Sevelamer Carbonate 800 mg 04/09/19 08:00 04/10/19 10:12 Renvela PO 800 mg TID-WM TAO Administration Sodium Chloride 10 ml 04/08/19 19:06 04/10/19 10:14 Flush - Normal Saline IVF 10 ml Q12H PRN Administration Saline Flush Vitamin B Complex/Vit C/Folic Acid 1 tab 04/09/19 09:00 04/10/19 10:13 Nephro-Vern Tablet PO 1 tab DAILY TAO Administration - Exam General Appearance: NAD, awake alert Eye: PERRL, anicteric sclera ENT: normocephalic atraumatic, no oropharyngeal lesions Neck: supple, symmetric, no JVD Heart: RRR, no murmur, no gallops Respiratory: CTAB, no wheezes, no rales, no ronchi Gastrointestinal: soft, non-tender, non-distended Extremities: no cyanosis, no clubbing Skin: normal turgor, no lesions Neurological: no focal deficits Musculoskeletal: normal tone, normal strength Psychiatric: normal affect, normal behavior Hosp A/P (1) Acute on chronic diastolic ACC/AHA stage C congestive heart failure Code(s): I50.33 - ACUTE ON CHRONIC DIASTOLIC (CONGESTIVE) HEART FAILURE Status : Acute (2) Acute respiratory failure with hypoxia Code(s): J96.01 - ACUTE RESPIRATORY FAILURE WITH HYPOXIA Status: Acute (3) AV fistula thrombosis Code(s): T82.868A - THROMBOSIS DUE TO VASCULAR PROSTH DEV/GRFT, INIT Status: Acute (4) Hyperkalemia Code(s): E87.5 - HYPERKALEMIA Status: Resolved (5) Volume overload Code(s): E87.70 - FLUID OVERLOAD, UNSPECIFIED Status: Resolved (6) CAD (coronary artery disease) Code(s): I25.10 - ATHSCL HEART DISEASE OF [place] CORONARY ARTERY W/O ANG PCTRS Status: Chronic (7) DM type 2 (diabetes mellitus, type 2) Status: Chronic (8) ESRD on dialysis Code(s): N18.6 - END STAGE RENAL DISEASE; Z99.2 - DEPENDENCE ON RENAL DIALYSIS Status: Chronic (9) HTN (hypertension) Code(s): I10 - ESSENTIAL (PRIMARY) HYPERTENSION Status: Chronic (10) PAF (paroxysmal atrial fibrillation) Code(s): I48.0 - PAROXYSMAL ATRIAL FIBRILLATION Status: Chronic - Plan old records reviewed/req, plan discussed w/ family today tunneled HD catheter placement and then will remove femoral HD catheter, transfer to [facility], medication reviewed and continue to provide symptomatic treatment and supportive care, overall has improvement, 04/10/19, will treat with medication for nausea and vomiting, HD as per nephrology , medication reviewed and continue to provide symptomatic treatment and supportive care, discharge soon
[2019-04-10] MEDS: HumaLOG 300 UNITS/3 ML VIAL SC PRN ×2 (12:24→18:19)
--- NOTE | 2019-04-10 16:32 | PRG ---
DATE OF SERVICE: 04/10/2019 CHIEF COMPLAINT: "I am ready to go home." HISTORY OF PRESENT ILLNESS: The patient had dialysis catheter placement yesterday. He states he is doing well and wishes to go home. PHYSICAL EXAMINATION: VITAL SIGNS: Heart rate 108, temperature 97.8, and blood pressure 123/57. The patient is on room air now. NECK: Supple. Dressing is clean, dry, and intact. SKIN: Catheter exit site on chest wall is clean, dry, and intact. Groin is without hematoma or bleeding. LABORATORY DATA: Hemoglobin 11.2, which is stable from preop. ASSESSMENT: Postop day 1 from tunneled dialysis catheter placement - ready for discharge from a Surgery standpoint. PLAN: We will sign off. Please call if there are any questions or problems. Job ID: [id number]
--- NOTE | 2019-04-10 17:13 | PRG ---
DATE OF SERVICE: 04/10/2019 SERVICE: Nephrology. SUBJECTIVE: A 58-year-old seen in followup for end-stage renal disease management. The patient was admitted due to worsening shortness of breath and fluid overload and inability to dialyze due to AV access, dialysis access malfunction. Status post right groin temporary catheter placement and subsequently right IJ tunneled dialysis catheter. He had nausea and vomiting earlier today, which have resolved. The patient tolerated diet earlier on today. Feels good and wants to be discharged home. Shortness of breath has resolved and the patient is off oxygen. OBJECTIVE: VITAL SIGNS: Temperature 97.8, pulse 108, respiratory rate 16, SpO2 of 92% on room air, and blood pressure is 127/57. GENERAL: Male patient in no obvious distress. Afebrile. Anicteric. Acyanotic. HEENT: Normocephalic, atraumatic. Oral mucosa is moist. CARDIOVASCULAR: Regular rhythm and rate with normal heart sounds one and two. RESPIRATORY: Good air entry bilaterally with no obvious crackle or rhonchi or use of accessory muscles. GI: Obese, soft, nontender, nondistended with normal bowel sounds. EXTREMITIES: Grossly normal looking atraumatic with no edema or erythema. GUN STRIPER: Conscious, alert, oriented x3 with appropriate mental status. Cranial nerves 2 through 12 are grossly intact. The patient is ambulant. DIAGNOSTIC DATA: CBC showed WBC count of 7.1, hemoglobin of 11.2, MCV of 93.9, platelet of 159. BMP showed sodium 135, potassium 4.3, chloride 97, CO2 of 25, BUN 33, creatinine 9.49, glucose 165, calcium 7.8. ASSESSMENT: 1. Acute respiratory failure due to acute diastolic heart failure with pulmonary congestion. Resolved with BiPAP and subsequent hemodialysis with UF as tolerated. 2. Fluid overload: Treated with hemodialysis with UF as tolerated. Resolved. 3. Left arteriovenous graft malfunction. 4. Status post right internal jugular tunneled dialysis catheter. 5. Hypertension: Control acceptable. 6. Anemia in chronic kidney disease. 7. Transient nausea and vomiting: Etiology is unclear. Query gastritis. Resolved. The patient tolerated oral intake earlier today. 8. Diabetes mellitus. 9. Hyperkalemia: Resolved with hemodialysis. PLAN: 1. There is no indication for hemodialysis today as volume status and electrolytes are acceptable. 2. The patient can be discharged from Nephrology point of view to continue outpatient hemodialysis. No further contribution. Further treatment as per primary attending. Job ID: [id number]
[2019-04-10 18:53] VITALS: BP 116/56; TEMP 98.4
--- NOTE | 2019-04-10 18:53 | DIS ---
DATE OF ADMISSION: 04/08/2019 DATE OF DISCHARGE: 04/10/2019 PRIMARY CARE PHYSICIAN: Dr. Chris Berger. DISCHARGE DISPOSITION: Home. PRIMARY DISCHARGE DIAGNOSES: 1. Acute respiratory failure with hypoxia due to volume overload. 2. Acute on chronic diastolic heart failure due to volume overload. 3. Arteriovenous fistula thrombosis. SECONDARY DISCHARGE DIAGNOSES: Paroxysmal atrial fibrillation, hypertension, end-stage renal disease on hemodialysis, diabetes type 2, coronary artery disease, obesity with BMI 33. PRIMARY PROCEDURE/OPERATION: Right femoral hemodialysis access, right IJ tunneled hemodialysis catheter access maintenance hemodialysis. RADIOLOGICAL INVESTIGATION: Chest x-ray showed pulmonary vascular congestion. SIGNIFICANT LABORATORY DATA: WBC 7.1, hemoglobin 11.2, platelet 159. Sodium 135, creatinine 9.49, potassium 4.3. DISCHARGE MEDICATIONS: 1. Ventolin HFA 2 puffs q.4 hourly p.r.n. 2. Tolstoy 1 tablet q.6 hourly p.r.n. 3. DuoNeb q.6 hourly p.r.n. 4. Zofran 8 mg q.8 hourly p.r.n. 5. Aspirin 81 mg daily. 6. Lipitor 80 mg p.o. at bedtime. 7. Charlee-Vern one tablet p.o. daily. 8. Symbicort two puffs inhalation b.i.d. 9. Coreg 3.125 mg b.i.d. 10. Gabapentin 300 mg p.o. at bedtime. 11. NovoLog insulin as per sliding scale. 12. Reglan 5 mg t.i.d. p.r.n. 13. Midodrine 5 mg t.i.d. p.r.n. 14. Effient 5 mg p.o. daily. 15. Renvela 800 mg t.i.d. 16. Zanaflex 4 mg p.o. at bedtime p.r.n. 17. Protonix 40 mg p.o. daily. CONTRAINDICATION: None. CODE STATUS: Full code. INPATIENT REGULATORY PRODUCT MANAGER: 1. Dr. Simpson, Nephrology. 2. Dr. Kristofer Turner, General Surgery. TEST RESULT PENDING ON DISCHARGE: None. ALLERGIES: PENICILLIN AND TRAMADOL. DISCHARGE PLAN: Posthospital, the patient will follow up with Dr. Amato in three days. The patient will follow up with Dr. Chris Berger in one week. HOSPITAL COURSE: A 58-year-old male who has ESRD and he has AV fistula thrombosis and that was not working and that is why the patient was not able to get dialysis. He presented to the hospital with increasing shortness of breath. The patient was admitted by Dr. Brown. Please see his H and P for further details. Unfortunately, H and P was not dictated by admitting physician. The patient was evaluated by me. At that time, he was in ICU because he was requiring emergent hemodialysis for hyperkalemia and volume overload and respiratory failure. He required BiPAP and subsequently he was transferred to telemetry floor once volume overload was resolved and subsequently the patient became much improved. His potassium improved and he was on telemetry floor and subsequently, he also had dialysis as per Nephrology. The patient had temporary hemodialysis catheter in the right groin, which was removed when the patient had tunneled hemodialysis catheter placement. The patient will follow up with Dr. Amato for his AV fistula thrombosis to get repaired. The patient is feeling much better today now. He had earlier nausea and vomiting, but that is also improved with symptomatic treatment. The patient expressed his wish to go home later on today and the patient is medically stable for discharge. The patient is seen and examined at bedside today. Please see my progress note from today for more details. He will continue all his previous medications. Dietary education and fluid restriction discussed with the patient in detail. Job ID: [id number]
--- NOTE | 2019-04-11 07:32 | RAD ---
XR Chest 1 View History: Hemodialysis catheter placement Comparison: None. Findings: 2 spot images were obtained. Satisfactory position hemodialysis catheter. Impression: Fluoroscopy for surgical purposes.
--- NOTE | 2019-04-11 07:52 | HP ---
TIME OF ASSESSMENT: 1800 hours. CHIEF COMPLAINT: Shortness of breath and fistula malfunction. PRIMARY CARE PHYSICIAN: Dr. Chris Berger. HISTORY OF PRESENT ILLNESS: Mr. Alexander is a 58-year-old gentleman with a known history of end-stage renal disease, on hemodialysis Thursday, Thursday, Thursday; also known to have coronary artery disease and type 2 diabetes mellitus, who presents with complaints of shortness of breath. The patient states he developed increasing shortness of breath yesterday evening and states he knows is due to having increased fluid in his chest. The patient was due for dialysis today, but was unable to have it done due to malfunction with his AV fistula. He was brought to the emergency department and Dr. Simpson, who is covering for Dr. Amato has already been consulted. The patient has had a temporary catheter placed in the emergency department and is to undergo emergent dialysis today. He did require BiPAP on initial presentation, had improvement with his breathing, therefore, it was taken off. At this present time, the patient is back on BiPAP and states he started to have some chest discomfort and increasing difficulty breathing due to the fluid in his chest. He states over the holidays, he maintained a poor diet with increased salt intake, which has exacerbated his symptoms. Normally, he does not experience these symptoms prior to dialysis and does not misses dialysis appointments. Has had issues with his fistula in the past. He is resting comfortably on his left side and now that he is back on a BiPAP machine. Denies any recent fevers, chills, or sweats. No cough or hemoptysis. No abdominal pain or cramping. All other review of systems are negative. In the emergency department, he underwent an EKG that showed normal sinus rhythm with a heart rate of 85. No ST changes or T-wave abnormalities. He had laboratory studies done, which were notable for a white count of 7.2, hemoglobin of 12.4, hematocrit 37.7, platelets 197, neutrophils 67.9. He had a sodium of 135, potassium of 6.1, chloride 95, BUN 29, creatinine 15.94 compared to 9.16 in March, GFR 4, glucose of 432, calcium 9.7. LFTs unremarkable. Troponin 0.044, which is actually lower than previous troponins. The patient underwent an ABG, which showed pH is 7.34, pCO2 of 38.2, pO2 of 125.5, and base excess . Chest x-ray was done as well showing enlarged heart with mild patchy opacities in the right middle, lower, and left mid lung zones with mild pulmonary vascular congestion. No large effusion seen. No further interventions in the emergency department apart from placing the temporary catheter and consulting Nephrology. ALLERGIES: 1. PENICILLIN VK. 2. INSULIN. 3. TRAMADOL. CURRENT MEDICATIONS: 1. Atorvastatin. 2. Aspirin. 3. Novolin R. 4. Effient. 5. Pantoprazole. 6. Reglan. 7. Ipratropium/albuterol nebs. 8. Albuterol inhaler. 9. Symbicort. 10. Carvedilol. 11. Keflex. 12. Gabapentin. 13. Midodrine. PAST MEDICAL HISTORY: 1. Hypertension. 2. End-stage renal disease, on hemodialysis (on Thursday, Thursday, Thursday). His credentials specialist is Dr. Amato. 3. CAD. 4. Type 2 diabetes mellitus. 5. Obesity. PAST SURGICAL HISTORY: 1. Coronary artery stents x1. 2. Bilateral cataract surgery. 3. Left forearm dialysis shunt. 4. Right great toe amputated in July 2017. 5. Right foot 3rd to 5th toes amputated in November 2017. SOCIAL HISTORY: The patient lives at home with his family. Denies any tobacco use, alcohol use, or illicit drug use. FAMILY HISTORY: Noncontributory. PHYSICAL EXAMINATION: GENERAL: The patient appears fatigued and resting on his left side. He is in no acute distress. VITAL SIGNS: Temperature 98.1, pulse 90, respirations 20, blood pressure 116/70, O2 saturation 100% on BiPAP. HEENT: Normocephalic and atraumatic. Pupils are equal, round, and reactive to light. Sclerae without icterus. Oropharynx is clear. NECK: Supple. No lymphadenopathy. LUNGS: Without wheezes or rales. Decreased breath sounds at the bases. Chest expansion equal. No tachypnea. ABDOMEN: Soft, nontender, nondistended. Normoactive bowel sounds present. No guarding. No rigidity. Obesity noted. EXTREMITIES: No lower leg edema. NEUROLOGIC: Alert and oriented x3. SKIN: Warm and dry. INVESTIGATIONS: As mentioned above in HPI. IMPRESSION AND PLAN: Mr. Alexander is a 58-year-old gentleman, who presents with shortness of breath due to fluid overload and end-stage renal disease due for dialysis today. The patient with increased salt intake over the holiday and feels this has led to fluid overload. He is being admitted for the following. 1. Fluid overload secondary to end-stage renal disease. The patient will go for emergent dialysis today and has a temporary catheter placed to the right groin. Already seen by Dr. Simpson. We will continue fluid restriction. I will add BMP to his labs. Continue dialysis and further recommendations as per Dr. Simpson. 2. Hyperglycemia. The patient with glucose in the 400s. He is known to have diabetes mellitus and on insulin at home. We will give 10 units of Humalog and recheck in an hour. Monitor glucose. Insulin sliding scale ordered. Resume home medications once verified. 3. Hypertension. Monitor blood pressure. Resume home medications once verified. 4. Coronary artery disease. Resume home medications once verified. Troponin indeterminate and has been elevated in the past. Continue to trend given the complaints of chest discomfort. 5. Hyperkalemia. Potassium 6.1. Continue to monitor electrolytes. magnesium. This should improve with insulin as that will be given as mentioned above. We will recheck with dialysis. 6. Gastrointestinal prophylaxis with pantoprazole, which he takes at home. 7. Deep venous thrombosis prophylaxis with mechanical SCDs. 8. Code status, full. Surrogate decision maker is his , Isa Alexander. 9. Case discussed with Dr. Brown, who agrees with plan of care as described above. Job ID: [id number]
== END 2019-04-10 18:56 | disposition home or self-care (01) | DRG 314 ==
LOC: ERS 12:55 → ERHOLD 18:30 → IMCU/EMU 22:30 → 2NO 04-09 15:44
PROVIDERS: ADMIT Internal Medicine; ATTEND Emergency Medicine
PROC: 5A1D70Z Performance of Urinary Filtration, Intermittent, Less than 6 Hours Per Day (ICD-10-PCS; 2019-04-08)
PROC: 0JH63XZ Insertion of Tunneled Vascular Access Device into Chest Subcutaneous Tissue and Fascia, Percutaneous Approach (ICD-10-PCS; principal; 2019-04-09)
PROC: 02HV33Z Insertion of Infusion Device into Superior Vena Cava, Percutaneous Approach (ICD-10-PCS; 2019-04-09)
PROC: B5181ZA Fluoroscopy of Superior Vena Cava using Low Osmolar Contrast, Guidance (ICD-10-PCS; 2019-04-09)
DX: T82.868A Thrombosis due to vascular prosthetic devices, implants and grafts, initial encounter (principal); N18.6 End stage renal disease; J96.01 Acute respiratory failure with hypoxia; I50.33 Acute on chronic diastolic (congestive) heart failure; I13.2 Hypertensive heart and chronic kidney disease with heart failure and with stage 5 chronic kidney disease, or end stage renal disease; E87.70 Fluid overload, unspecified; E87.5 Hyperkalemia; I25.10 Atherosclerotic heart disease of native coronary artery without angina pectoris; E11.22 Type 2 diabetes mellitus with diabetic chronic kidney disease; E78.5 Hyperlipidemia, unspecified; E66.9 Obesity, unspecified; E11.65 Type 2 diabetes mellitus with hyperglycemia; E11.649 Type 2 diabetes mellitus with hypoglycemia without coma; I48.0 Paroxysmal atrial fibrillation; Y83.8 Other surgical procedures as the cause of abnormal reaction of the patient, or of later complication, without mention of misadventure at the time of the procedure; D63.1 Anemia in chronic kidney disease; Z88.0 Allergy status to penicillin; Z99.2 Dependence on renal dialysis; Z89.411 Acquired absence of right great toe; Z89.421 Acquired absence of other right toe(s); Z98.42 Cataract extraction status, left eye; Z98.41 Cataract extraction status, right eye; Z95.5 Presence of coronary angioplasty implant and graft; Z68.33 Body mass index [BMI] 33.0-33.9, adult
CPT/HCPCS: 36415; 36416; 36556; 71045; 76000; 80048; 80053; 82553; 82805; 83735; 83880; 84484; 85025; 87340; 93005; 94640; 94660; C1752; C1769; J0171; J1642; J1644; J2001; J2405; J2704; J3010; J3490; J7620; S0020; S0028

== ENCOUNTER 2019-06-06 08:56 | Inpatient (IN) | payer MEDICARE ==
[2019-06-06] MEDS ORDERED: Ondansetron PF 4 MG/2 ML Vial ONE (09:03)
--- NOTE | 2019-06-06 09:16 | RAD ---
Chest AP view INDICATION: Respiratory distress COMPARISON: April 08, 2019 FINDINGS: Lungs: There is bilateral perihilar interstitial and airspace opacities Cardiac silhouette: There is moderate cardiomegaly Pulmonary vasculature: There is moderate pulmonary vascular congestion Pleural spaces: There are small bilateral pleural effusions Upper abdomen: No abnormality seen. Osseous structures: No acute osseous abnormality. Additional findings: None. IMPRESSION: Findings suspicious for [id number] CHF.
[2019-06-06 09:20] LABS: Actual Bicarbonate (HCO3a) 23.3 mEq/L (22-28); Analyzer IN Cardio ER; Base Excess (BEa) -2.7 mEq/L (-2.0 to +3.0); CO2 Tension 45.5 mmHg (35.0-45.0); Calcium, Ionized 1.02 mmol/L (1.12-1.30); Carboxyhemoglobin (COHb) 1.1 gm% (0.0-3.0); O2 Tension (PaO2) 95.2 mmHg (80.0-100.0); pH, Arterial 7.33 (7.35-7.45)
[2019-06-06 09:21] LABS: #Basophils 0.1 thou/uL (0.0-0.2); #Eosinphils 0.2 thou/uL (0.0-0.7); #Lymphocytes 2.3 thou/uL (1.20-3.40); #Monocytes 0.6 thou/uL (0.11-0.59); #Neutrophils 7.2 thou/uL (1.40-6.50); %Basophils 0.5 % (0.0-1.0); %Eosinophils 1.7 % (0.0-10.0); %Lymphocytes 22.4 % (21.0-51.0); %Monocytes 6.2 % (0.0-10.0); %Neutrophils 69.1 % (42.0-75.0); Hemoglobin 13.3 g/dL (14.0-18.0); Mean Corpuscular HGB CONC 32.5 g/dL (32.0-36.0); Mean Corpuscular Hemoglobin 31.4 pg (27.0-31.0); Mean Corpuscular Volume 96.5 fL (78.0-98.0); Mean Platelet Volume 8.3 fL (7.4-10.4); Platelet Count 149 thou/uL (130-400); RBC Distribution Width 15.6 % (11.5-14.5); Red Blood Cell (RBC) Count 4.22 mill/uL (4.70-6.10); White Blood Cell (WBC) Count 10.3 thou/uL (4.8-10.8)
[2019-06-06 09:22] LABS: ALV-art Gradient 133.125 (0-20)
[2019-06-06 09:47] LABS: ALT (SGPT) 10 U/L (8-55); AST (SGOT) 13 U/L (5-34); Albumin 4.1 g/dL (3.5-5.0); Alkaline Phosphatase 64 U/L (40-110); Anion Gap 24 mmol/L (10-20); BUN (Urea Nitrogen) 68 mg/dL (8.4-25.7); Bilirubin, Total 0.8 mg/dL (0.2-1.2); Calc. Creatinine Clearance 0 mL/min (70-130); Calcium 8.3 mg/dL (7.8-10.44); Carbon Dioxide 22 mmol/L (22-29); Chloride 96 mmol/L (98-107); Estimated GFR-MDRD 5; Globulin 3.7 g/dL (2.4-3.5); Glucose 307 mg/dL (70-105); Lipase 62 U/L (8-78); Potassium 4.5 mmol/L (3.5-5.1); Protein, Total 7.8 g/dL (6.0-8.3); Sodium 137 mmol/L (136-145)
[2019-06-06 10:01] LABS: CKMB 1.9 ng/mL (0-6.6)
[2019-06-06] MEDS ORDERED: Ondansetron ODT 4 MG TAB SL PRN (11:15)
[2019-06-06] MEDS ORDERED: Ondansetron PF 4 MG/2 ML Vial IVP PRN (11:15)
[2019-06-06] MEDS ORDERED: Acetaminophen 325 MG TAB PO PRN (11:15)
[2019-06-06 13:06] LABS: Lactic Acid 1.4 mmol/L (0.5-2.2); Troponin I 0.069 ng/mL (< 0.028)
[2019-06-06 16:21] LABS: Troponin I 0.069 ng/mL (< 0.028)
[2019-06-06 16:57] VITALS: BMI 34.0
--- NOTE | 2019-06-06 17:55 | CON ---
DATE OF CONSULTATION: CONSULTING PHYSICIAN: Lm Lo MD REQUESTING PHYSICIAN: ER physician. REASON FOR CONSULTATION: Respiratory failure in a patient with end-stage renal disease. IMPRESSION: 1. End-stage renal disease, on hemodialysis Thursday, Thursday, Thursday schedule. 2. Respiratory failure in the context of problem #3. 3. Hypervolemia/flash pulmonary edema. 4. Significant cardiac history with multiple stents in the past. PLAN: 1. The patient to be dialyzed semi-urgently with ultrafiltration as tolerated by hemodynamics. 2. Further management to be dependent on the clinical course. HISTORY OF PRESENT ILLNESS: History is that of a 58-year-old gentleman with significant cardiac history having had multiple stents in the past, who does have history of end-stage renal disease, on hemodialysis and hypertension, presented here with fluid overload and shortness of breath. Decision has been taken to involve Renal in the management of this case because of the need for renal replacement therapy. PAST MEDICAL HISTORY: As documented above. MEDICATIONS: Reviewed as documented on [employer]. ALLERGIES: 1. PENICILLIN. 2. TRAMADOL. FAMILY HISTORY: Not significantly related to presenting illness. SOCIAL HISTORY: . No alcohol. No tobacco. No illicit drug use. REVIEW OF SYSTEMS: As documented in the body of history. All the other systems were reviewed and found not to be significantly related to presenting illness. PHYSICAL EXAMINATION: GENERAL: The patient was found to be in respiratory distress, but hemodynamically stable on BiPAP. HEENT: Unremarkable except for BiPAP mask in place. CARDIOVASCULAR: First and second heart sounds. RESPIRATORY: Revealed a lot of transmitted sounds on BiPAP. DIGESTIVE SYSTEM: Revealed a benign abdomen with positive bowel sounds. EXTREMITIES: No peripheral edema. SKIN: No new gross rash. LYMPHATICS: No peripheral lymphadenopathy. SUMMARY: A 58-year-old gentleman with end-stage renal disease, hemodialysis dependent, who presented here in respiratory failure. Thank you for this consultation. We will follow with you. Job ID: [id number]
--- NOTE | 2019-06-06 18:46 | PDOC.HHP ---
Hospitalist HPI - History of Present Illness shortness of breath History of Present Illness: This is a 58 year old male with past medical history of CAD, ESRD, hypertension who presented to the ER with shortness of breath. The patient states his shortness of breath started all of a sudden when he was sitting. He reported coughing excessively and dry heaving and was bringing up phlegm. Shortness of breath was worst with laying down. It also occurred at rest and on exertion. He denied chest pain. He denied fevers, chills, runny nose, sore throat or sick contacts. He states that his last dialysis was last Thursday and he was supposed to get dialysis at 10:30 this am but was too sick to make it. He has some mild epigastric discomfort and constipation. No diarrhea. When EMS arrived his oxygen saturation was 88% on room air. He was placed on CPAP empirically. He was given IV solumedrol, nitro and 2 grams of magnesium. Patient reports minimal relief so far. ED Course: Upon arrival to the ER the patient had BP Of 144 and 100% on 4L of oxygen. Chest Xray showed mild to moderate CHF. He was admitted for CHF. Hospitalist ROS - Review of Systems Constitutional: denies: fever, chills Eyes: denies: vision change, redness ENT: denies: ear pain, ear discharge Respiratory: reports: cough, dry, shortness of breath Cardiovascular: reports: orthopnea. denies: chest pain, palpitations, paroxysmal noc. dyspnea, edema Gastrointestinal: reports: nausea, constipation. denies: vomiting, abdominal pain, diarrhea Genitourinary: denies: dysuria, frequency, incontinence Musculoskeletal: denies: neck pain, shoulder pain, arm pain Skin: denies: rash, lesions Neurological: denies: weakness, numbness, incoordination Hospitalist History - Past Medical History Other Medical History: CAD with 11 stents Hypertension ESRD - Past Surgical History Past Surgical History: reports: Cataract Removal Other Surgical History: Toe amputation Shunt on left arm - Family History Other Family History: not contributory to current problem - Social History Smoking Status: Never smoker Alcohol: reports: None (former heavy drinker) Drugs: denies: none Living Situation: With Family 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 - Exam General Appearance: NAD, awake alert General - other findings: on 3L nasal cannula Eye: PERRL, anicteric sclera ENT: normocephalic atraumatic, no oropharyngeal lesions Neck: no JVD Heart: RRR, no murmur, no gallops, no rubs Respiratory: CTAB Respiratory - other findings: mildly diminished breath sounds at bases Gastrointestinal: soft, non-tender, normal bowel sounds Gastrointestinal - other findings: abdomen distended, slightly firm to palptatio n Extremities: 1+ LE edema Skin: normal turgor, no lesions, no rashes Neurological: cranial nerve grossly intact, normal sensation to touch, no focal deficits, no new deficit Hospitalist Results - Labs Result Diagrams: 06/06/19 09:14 06/06/19 09:14 Lab results: WBC 10.3 thou/uL (4.8-10.8) 06/06/19 09:14 Hgb 13.3 g/dL (14.0-18.0) L 06/06/19 09:14 Hct 40.8 % (42.0-52.0) L 06/06/19 09:14 MCV 96.5 fL (78.0-98.0) 06/06/19 09:14 Plt Count 149 thou/uL (130-400) 06/06/19 09:14 Neutrophils % 69.1 % (42.0-75.0) 06/06/19 09:14 ABG pH 7.33 (7.35-7.45) L 06/06/19 09:15 ABG pCO2 45.5 mmHg (35.0-45.0) H 06/06/19 09:15 ABG pO2 95.2 mmHg (80.0-100.0) 06/06/19 09:15 Sodium 137 mmol/L (136-145) 06/06/19 09:14 Potassium 4.5 mmol/L (3.5-5.1) 06/06/19 09:14 Chloride 96 mmol/L (98-107) L 06/06/19 09:14 Carbon Dioxide 22 mmol/L (22-29) 06/06/19 09:14 BUN 68 mg/dL (8.4-25.7) H 06/06/19 09:14 Creatinine 13.63 mg/dL (0.7-1.3) H 06/06/19 09:14 Glucose 307 mg/dL (70-105) H 06/06/19 09:14 Lactic Acid 1.4 mmol/L (0.5-2.2) 06/06/19 12:39 Calcium 8.3 mg/dL (7.8-10.44) 06/06/19 09:14 Total Bilirubin 0.8 mg/dL (0.2-1.2) 06/06/19 09:14 AST 13 U/L (5-34) 06/06/19 09:14 ALT 10 U/L (8-55) 06/06/19 09:14 Alkaline Phosphatase 64 U/L (40-110) 06/06/19 09:14 CK-MB (CK-2) 1.9 ng/mL (0-6.6) 06/06/19 09:14 Troponin I 0.069 ng/mL (< 0.028) H 06/06/19 15:44 B-Natriuretic Peptide 3194.7 pg/mL (0-100) H 06/06/19 09:14 Serum Total Protein 7.8 g/dL (6.0-8.3) 06/06/19 09:14 Albumin 4.1 g/dL (3.5-5.0) 06/06/19 09:14 Lipase 62 U/L (8-78) 06/06/19 09:14 - EKG Interpretation EKG: sinus tachycardia Hospitalist H&P A/P - Plan Plan: Chest X ray: mild to moderate CHF This is a 58 year male with ESRD who presented with sudden onset of shortness of breath, hypoxia and cough, missed his dialysis this am #Acute hypoxic respiratory failure secondary to pulmonary edema - had room air sat 88%, currently on nasal cannula. Chest X ray showed acute CHF - nephro consulted, scheduled for dialysis this morning - repeat ECHO, troponin mildly elevated #ESRD - continue dialysis per nephro #Hypertension #CAD - resume aspirin, prasugrel Type II diabetes - fingersticks achs - insulin sliding scale DVT prophylaxis: heparin COde status:full code
[2019-06-06] MEDS ORDERED: HYDROcodone/Acetaminophen 10/325 mg Tablet PO PRN (18:59)
[2019-06-06] MEDS ORDERED: Dextrose 5% in Water 1,000 ML IV PRN (19:01)
[2019-06-06] MEDS ORDERED: Dextrose 50% Abboject 50 ML SYRINGE SLOW IVP PRN (19:01)
[2019-06-06] MEDS ORDERED: Polyethylene Glycol 3350 17 GM Packet PO PRN (19:04)
[2019-06-06 19:49] LABS: Hep B Surf Ag Non-Reactive S/CO (NonReactive)
[2019-06-06] MEDS ORDERED: Atorvastatin Calcium 40 MG TAB PO SCH (21:00)
[2019-06-06] MEDS: Heparin 5,000 UNITS/ML VIAL SC SCH (23:54)
[2019-06-07] MEDS ORDERED: Mometasone/Formoterol 120 PUFF INHALER INH PRN (00:51)
[2019-06-07] MEDS: Ondansetron ODT 4 MG TAB SL PRN ×2 (04:28→11:16)
[2019-06-07 04:50] LABS: Hemoglobin 11.8 g/dL (14.0-18.0); Mean Corpuscular HGB CONC 32.3 g/dL (32.0-36.0); Mean Corpuscular Volume 95.8 fL (78.0-98.0); Platelet Count 138 thou/uL (130-400); RBC Distribution Width 15.7 % (11.5-14.5); Red Blood Cell (RBC) Count 3.81 mill/uL (4.70-6.10); White Blood Cell (WBC) Count 6.8 thou/uL (4.8-10.8)
[2019-06-07 05:06] LABS: Anion Gap 19 mmol/L (10-20); BUN (Urea Nitrogen) 47 mg/dL (8.4-25.7); Calc. Creatinine Clearance 12 mL/min (70-130); Calcium 8.2 mg/dL (7.8-10.44); Carbon Dioxide 26 mmol/L (22-29); Chloride 94 mmol/L (98-107); Estimated GFR-MDRD 7; Glucose 344 mg/dL (70-105); Potassium 4.3 mmol/L (3.5-5.1); Sodium 135 mmol/L (136-145)
[2019-06-07] MEDS ORDERED: [UNRECOGNIZED DRUG - OTHER] PO SCH (09:00)
[2019-06-07] MEDS ORDERED: SELENOMETH PO SCH (09:00)
[2019-06-07] MEDS ORDERED: Aspirin 81 mg Enteric Coated Tablet PO SCH (09:00)
[2019-06-07] MEDS ORDERED: ZINC PO SCH (09:00)
[2019-06-07] MEDS ORDERED: D3 PO SCH (09:00)
[2019-06-07] MEDS ORDERED: FOLIC PO SCH (09:00)
[2019-06-07] MEDS ORDERED: Prasugrel 10 MG TAB PO SCH (09:00)
[2019-06-07] MEDS: Carvedilol 3.125 MG TAB PO SCH ×2 (09:10→16:08)
[2019-06-07] MEDS: Heparin 5,000 UNITS/ML VIAL SC SCH ×2 (09:10→14:15)
[2019-06-07] MEDS: Sevelamer Carbonate 800 MG TAB PO SCH ×3 (09:10→16:08)
[2019-06-07] MEDS ORDERED: Insulin Glargine 20 UNITS in Pre-Filled Syringe 1 EACH SC SCH (11:15)
[2019-06-07] MEDS: HumaLOG 300 UNITS/3 ML VIAL SC PRN ×2 (11:23→17:46)
[2019-06-07 16:07] VITALS: BP 118/73; TEMP 98.6
--- NOTE | 2019-06-07 17:46 | PRG ---
DATE OF SERVICE: 06/07/2019 SUBJECTIVE: The patient was seen and noted with the following vital signs. OBJECTIVE: VITAL SIGNS: Afebrile, temperature 98.6, pulse 83, respiratory rate of 18, O2 saturations of 99%, blood pressure 118/73. HEENT: Unremarkable. CARDIOVASCULAR SYSTEM: First and second heart sounds were heard. RESPIRATORY SYSTEM: Clear to auscultation. DIGESTIVE SYSTEM: Revealed a benign abdomen with positive bowel sounds. EXTREMITIES: No peripheral edema. SKIN: No new gross rash. LYMPHATICS: No peripheral lymphadenopathy. LABORATORY INVESTIGATION: Significant for creatinine of 9.75, BUN of 47. IMPRESSION: 1. End-stage renal disease, on hemodialysis. 2. Respiratory failure in the context of fluid overload. 3. Significant cardiac history. PLAN: 1. From the renal standpoint, the patient is due for discharge. 2. If the patient remains here tomorrow, will likely undergo dialysis here prior to being discharged. 3. Further management to be dependent on the clinical course. Job ID: [id number]
--- NOTE | 2019-06-07 20:13 | DIS ---
DATE OF ADMISSION: 06/06/2019 DATE OF DISCHARGE: 06/07/2019 DISCHARGE DIAGNOSES: Acute pulmonary edema, obstructive sleep apnea, sinus tachycardia. SECONDARY DISCHARGE DIAGNOSES: End-stage renal disease, hypertension, coronary artery disease, type 2 diabetes. CONSULTATIONS: Dr. Lm Lo with Nephrology. PROCEDURES: Dialysis. BRIEF HISTORY OF PRESENT ILLNESS: This is a 58-year-old male with past medical history of ESRD, hypertension, HEBERT, who presented to the emergency department due to acute shortness of breath, excessive amounts of coughing and orthopnea. He denied any flu-like symptoms. He was unable to make his dialysis appointment due to feeling sick and therefore, came to the ER. His oxygen saturation was 88% on room air and he was placed on CPAP empirically by EMS. He was given IV Solu-Medrol, nitroglycerin, and magnesium. HOSPITAL COURSE: Acute hypoxic respiratory failure secondary to pulmonary edema: The patient had a blood pressure of 144 on arrival to the emergency room. His chest x-ray showed [id number] CHF. He was eventually weaned from CPAP to nasal cannula. The patient underwent dialysis on the . The following morning, the patient reported resolution of his shortness of breath, cough, and orthopnea. Home oxygen evaluation was done and the patient was noted to have a room air saturation of 88% and desaturated to 86% while ambulating. The patient's O2 saturation came up appropriately to 89% with 1 L nasal cannula. He will be discharged with oxygen. He does have a history of HEBERT, has not received his CPAP yet, so he can use oxygen while sleeping. He did have a troponin done in the emergency room, which was elevated at 0.071. The patient does seem to have a chronically elevated troponin. He denied any complaints of chest pain. The patient had a repeat echo done which showed no wall motion abnormalities. He can follow up with his PCP and ballistic technician as an outpatient. DISCHARGE PHYSICAL EXAMINATION: VITAL SIGNS: Temperature 98.6, heart rate 83, respiratory rate 18, O2 saturation 99% on 3 L nasal cannula, blood pressure 118/ 73. GENERAL: He is morbidly obese. He is in no acute distress. CVS: Regular rate and rhythm with no murmurs, rubs, or gallops. LUNGS: Clear to auscultation bilaterally. ABDOMEN: Positive bowel sounds, soft, nontender, nondistended. EXTREMITIES: 1+ edema. PERTINENT LABORATORY DATA: CBC on 06/06; hemoglobin 11.8, hematocrit 36.5. BMP on 06/06; sodium 135, creatinine 9.75. Glucose was 248 on the day of discharge. Troponin I : peaked at 0.071 Hep B serology on 06/05: was nonreactive. PERTINENT IMAGING: Chest x-ray : shows mild to moderate CHF. Echo : EF 40-45%, mild MR. DISCHARGE CONDITION: Stable. ACTIVITY: As tolerated. DIET: Renal diet. DISCHARGE MEDICATIONS: All of his home medications were resumed. DISCHARGE INSTRUCTION: The patient is to follow up with his PCP and electrical estimator in a week. Consider following up with ballistic technician as an outpatient and a stress test if he has never had one in the past. The patient will be discharged with 1 L of oxygen at rest and on exertion. He should get his CPAP as soon as possible. Job ID: [id number] [id number]
--- NOTE | 2019-06-08 21:59 | PQF ---
MONCHOAPRYL Choe MARIBELL RHODES [id number] CLINICAL DOCUMENTATION CLARIFICATION FORM: POST DISCHARGE Addendum to original discharge summary date: ____ Late entry note date: __ DATE:06/08/2019 ATTN:MARIBELL RHODES Please exercise your independent, professional judgment in responding to the clarification form. Clinical indicators are provided on the bottom of this form for your review Please check appropriate box(s): HEART FAILURE: A. TYPE: [ X ] Systolic / HFrEF [ ] Diastolic / HFpEF [ ] Combined Systolic / Diastolic B. ACUITY [X ] Acute [ ] Acute on Chronic [ ] Chronic [ ] Other diagnosis [ ] Unable to determine For continuity of documentation, please document condition throughout progress notes and discharge summary. Thank You. CLINICAL INDICATORS - SIGNS / SYMPTOMS / LABS Acute pulmonary edema -Documented in discharge summary on 06/06 by Carmelo Cheek MD Acute respiratory failure secondary to pulmonary edema-Documented in discharge summary on 06/06 by Carmelo Cheek MD Chest x ray:Shows mild to moderate CHF-Documented in discharge summary on 06/06 by Carmelo Cheek MD ECHO-EF 40-45%, Mild MR-Documented in discharge summary on 06/06 by Carmelo Cheek MD Shortness of breath-Documented in H&P on 06/05 by Maribell Rhodes MD LE edema-Documented in H&P on 06/05 by Maribell Rhodes MD BNP-3194.7-Documented in H&P on 06/05 by Maribell Rhodes MD CHF exacerbation -Documented in ED on 06/05 by Julian Matthews Fluid overload-Documented in ED on 06/05 by Julian Matthews RISKS: HTN-Documented in discharge summary on 06/06 by Carmelo Cheek MD CAD-Documented in discharge summary on 06/06 by Carmelo Cheek MD ESRD-Documented in discharge summary on 06/06 by Carmelo Cheek MD TREATMENTS: Hemodialysis on 06/05 ECHO on 06/06 (This form is maintained as a part of the permanent medical record) 2014 [email or web address]. All Rights Reserved [email or web address]
--- NOTE | 2019-06-09 11:45 | DIS ---
DATE OF ADMISSION: 06/06/2019 DATE OF DISCHARGE: 06/07/2019 ADDENDUM: The patient was admitted for volume overload, acute hypoxic respiratory failure. He is admitted as inpatient status. The patient did make a significant recovery and was met criteria for inpatient status, however recovered faster than expected; therefore, did not have to stay more than 2 midnights. Job ID: [id number]
--- NOTE | 2019-06-11 14:49 | EKG ---
Test Reason : Blood Pressure : / mmHG Vent. Rate : 106 BPM Atrial Rate : 106 BPM P-R Int : 188 ms QRS Dur : 096 ms QT Int : 358 ms P-R-T Axes : 074 083 001 degrees QTc Int : 475 ms Sinus tachycardia Possible Left atrial enlargement Borderline ECG Confirmed by ADELINE CADE ([id number]), editor & co founder MARY SINGH ([id number]) on 06/11/2019 2:48:43 PM Referred By: Confirmed By:ADELINE CADE
== END 2019-06-07 19:25 | disposition home or self-care (01) | DRG 291 ==
LOC: ERS 08:56 → ERHOLD 11:31 → 2NO 16:27
PROVIDERS: ADMIT Internal Medicine; ATTEND Internal Medicine
PROC: 5A1D70Z Performance of Urinary Filtration, Intermittent, Less than 6 Hours Per Day (ICD-10-PCS; principal; 2019-06-06)
DX: I13.2 Hypertensive heart and chronic kidney disease with heart failure and with stage 5 chronic kidney disease, or end stage renal disease (principal); J96.01 Acute respiratory failure with hypoxia; N18.6 End stage renal disease; I50.21 Acute systolic (congestive) heart failure; G47.33 Obstructive sleep apnea (adult) (pediatric); I25.10 Atherosclerotic heart disease of native coronary artery without angina pectoris; E11.22 Type 2 diabetes mellitus with diabetic chronic kidney disease; Z89.411 Acquired absence of right great toe; Z89.421 Acquired absence of other right toe(s); Z95.5 Presence of coronary angioplasty implant and graft; Z88.6 Allergy status to analgesic agent; Z88.0 Allergy status to penicillin; J45.909 Unspecified asthma, uncomplicated; Z91.15 Patient's noncompliance with renal dialysis
CPT/HCPCS: 36415; 36416; 71045; 80048; 80053; 82553; 82805; 83605; 83690; 83880; 84484; 85025; 85027; 87340; 90935; 93005; 93306; 93798; 94640; 94660; 96374; G0257; J1644; J1815; J2405; J7620; Q0162

== ENCOUNTER 2019-08-16 08:31 | Inpatient (IN) | payer MEDICARE ==
[2019-08-16 09:31] LABS: #Eosinphils 0.2 thou/uL (0.0-0.7); #Lymphocytes 1.4 thou/uL (1.20-3.40); #Monocytes 0.6 thou/uL (0.11-0.59); #Neutrophils 8.6 thou/uL (1.40-6.50); %Basophils 0.4 % (0.0-1.0); %Eosinophils 1.9 % (0.0-10.0); %Lymphocytes 12.6 % (21.0-51.0); %Monocytes 5.8 % (0.0-10.0); %Neutrophils 79.4 % (42.0-75.0); Hemoglobin 11.6 g/dL (14.0-18.0); Mean Corpuscular HGB CONC 31.1 g/dL (32.0-36.0); Mean Corpuscular Hemoglobin 29.7 pg (27.0-31.0); Mean Corpuscular Volume 95.6 fL (78.0-98.0); Mean Platelet Volume 7.7 fL (7.4-10.4); Platelet Count 177 thou/uL (130-400); RBC Distribution Width 15.1 % (11.5-14.5); Red Blood Cell (RBC) Count 3.91 mill/uL (4.70-6.10); White Blood Cell (WBC) Count 10.8 thou/uL (4.8-10.8)
[2019-08-16 09:51] LABS: ALT (SGPT) 8 U/L (8-55); AST (SGOT) 11 U/L (5-34); Albumin 3.8 g/dL (3.5-5.0); Alkaline Phosphatase 49 U/L (40-110); Anion Gap 21 mmol/L (10-20); BUN (Urea Nitrogen) 86 mg/dL (8.4-25.7); Bilirubin, Total 0.7 mg/dL (0.2-1.2); Calc. Creatinine Clearance 0 mL/min (70-130); Calcium 8.5 mg/dL (7.8-10.44); Carbon Dioxide 22 mmol/L (22-29); Chloride 103 mmol/L (98-107); Estimated GFR-MDRD 4; Globulin 3.6 g/dL (2.4-3.5); Glucose 144 mg/dL (70-105); Potassium 5.7 mmol/L (3.5-5.1); Protein, Total 7.4 g/dL (6.0-8.3); Sodium 140 mmol/L (136-145)
[2019-08-16] MEDS ORDERED: Ondansetron ODT 4 MG TAB ONE (09:59)
[2019-08-16 10:13] LABS: CKMB 2.2 ng/mL (0-6.6)
[2019-08-16] MEDS ORDERED: Senokot S 8.6-50 MG TAB PO PRN (10:38)
[2019-08-16] MEDS ORDERED: Calcium Carbonate 500 MG ChewTAB PO PRN (12:34)
[2019-08-16] MEDS ORDERED: Acetaminophen 325 MG TAB PO PRN (12:34)
[2019-08-16] MEDS ORDERED: HumaLOG 300 UNITS/3 ML VIAL SC PRN ×2 (12:39)
[2019-08-16] MEDS ORDERED: Dextrose 50% Abboject 50 ML SYRINGE SLOW IVP PRN (12:39)
[2019-08-16] MEDS ORDERED: Dextrose 5% in Water 1,000 ML IV PRN (12:39)
--- NOTE | 2019-08-16 12:48 | PDOC.HHP ---
Hospitalist HPI - History of Present Illness Dyspnea x 2 days History of Present Illness: PCP: Dr. Berger Infant Caregiver: Dr. Amato The patient is a 58/M with PMH significant for ESRD (HD on MWF), CAD (10 stents) , HTN, DMII (insulin), HLD, and asthma (home oxygen prn) that presents to the ER for the above complaint. The patient reports that his last dialysis treatment was on Thursday, which was stopped early secondary to his fistula "clottting off". Reports getting approximately 1-1.5L off on Thursday. The following Thursday, he went to see his social media senior associate, Dr. Amato, who unsuccessfully tried to unclot his hemodialysis access. Yesterday, he began feeling short of breath. Reports associated non productive cough and orthopnea and having to use his home oxygen. This morning, his dyspnea was worse. His doctor instructed him to go to the ER. Denies any chest pain, heart palpitations or swelling to his lower extremities. Denies any wheezing, fever or chills. Reports intermittent, chronic diarrhea, denies abdominal pain, vomiting or blood in stools. He does not make urine. ED Course: EKG SR 90 bpm, no peaked t waves VS 98.9F, 121/53, 97, 18, 94% RA Trop 0.081, CKMB 2.2 BNP 2704 K 5.7 CXR + mild pulmonary vascular congestion BUN 86 Creatinine 16.40 WBC 10.8 Hgb 11.6 [address] Nava placed hemosplit and Dr. Amato consulted for urgent HD Given: Placed on Bipap Zorfan 4mg IVP x 1 dose Allergies: Penicillins and tramadol Home Medications: 1. Coreg 3.125mg po BID 2. Atorvastatin 80mg po day 3. Protonix 40mg po day 4. ASA 81mg po day 5. Effient 5mg po day 6. Reglan 5mg po TID with meals 7. Midodrine 5mg prn SBP < 110 8. Gabapentin 300mg po TID prn pain 9. Duoneb 3ml nebulized q4hrs prn SOB 10. Symbicort 160/4.5 mcg/actuation 2 puffs BID 11. keflex 500mg po after HD treatment Hospitalist ROS - Review of Systems Constitutional: denies: fever, chills, malaise Eyes: denies: pain, vision change, conjunctivae inflammation, eyelid inflammation, redness, other ENT: denies: ear pain, ear discharge, nose pain, nose discharge, nose congestion , mouth pain, mouth swelling, throat pain, throat swelling, other Respiratory: reports: cough, dry, shortness of breath, SOB with excertion. denies: hemoptysis, pleuritic pain, sputum, wheezing Cardiovascular: reports: orthopnea. denies: chest pain, palpitations, paroxysmal noc. dyspnea, edema, light headedness Gastrointestinal: reports: diarrhea (intermittent, chronic). denies: nausea, vomiting, abdominal pain Genitourinary: denies: dysuria (anuric) Skin: denies: rash, bruising Neurological: denies: weakness, numbness, incoordination, change in speech, confusion, seizures, other Hospitalist History - Past Medical History Cardiac: reports: CAD (10 stents), Hyperlipidemia Pulmonary: reports: asthma (home oxygen prn) Renal/: reports: Chronic renal failure (HD MWF) Endocrine: reports: Diabetes (Type II) - Past Surgical History Past Surgical History: reports: Cataract Removal, Other (CAD x 10 stents Right great toe and 3-5 toes) - Family History Family History: reports: cardiac disorder, diabetes mellitus - Social History Smoking Status: Never smoker Alcohol: reports: None (former heavy drinker) Drugs: reports: none Living Situation: With Family 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 Activity level: uses cane/walker (intermittently) - Exam General Appearance: awake alert General - other findings: Mild respiratory distress Eye: anicteric sclera ENT: normocephalic atraumatic Neck: supple, no JVD Heart: RRR, no murmur, no gallops, no rubs Heart - other findings: right pedal pulse weak Respiratory: rales, tachypneic, wheezes Respiratory - other findings: Difficulty speaking complete sentences on 3L NC Gastrointestinal: soft, non-tender, normal bowel sounds, no guarding, no rigidity Extremities: no cyanosis, no edema Extremities - other findings: Hemosplit to right groin, right great toe + 3rd- 5th toes amp Skin: no rashes Neurological: no focal deficits Psychiatric: normal affect, A&O x 3 Hospitalist Results - Labs Result Diagrams: 08/16/19 09:20 08/16/19 09:20 Lab results: WBC 10.8 thou/uL (4.8-10.8) 08/16/19 09:20 Hgb 11.6 g/dL (14.0-18.0) L 08/16/19 09:20 Hct 37.3 % (42.0-52.0) L 08/16/19 09:20 MCV 95.6 fL (78.0-98.0) 08/16/19 09:20 Plt Count 177 thou/uL (130-400) 08/16/19 09:20 Neutrophils % 79.4 % (42.0-75.0) H 08/16/19 09:20 Sodium 140 mmol/L (136-145) 08/16/19 09:20 Potassium 5.7 mmol/L (3.5-5.1) H 08/16/19 09:20 Chloride 103 mmol/L (98-107) 08/16/19 09:20 Carbon Dioxide 22 mmol/L (22-29) 08/16/19 09:20 BUN 86 mg/dL (8.4-25.7) H 08/16/19 09:20 Creatinine 16.40 mg/dL (0.7-1.3) H 08/16/19 09:20 Glucose 144 mg/dL (70-105) H 08/16/19 09:20 Calcium 8.5 mg/dL (7.8-10.44) 08/16/19 09:20 Total Bilirubin 0.7 mg/dL (0.2-1.2) 08/16/19 09:20 AST 11 U/L (5-34) 08/16/19 09:20 ALT 8 U/L (8-55) 08/16/19 09:20 Alkaline Phosphatase 49 U/L (40-110) 08/16/19 09:20 CK-MB (CK-2) 2.2 ng/mL (0-6.6) 08/16/19 09:20 Troponin I 0.081 ng/mL (< 0.028) H 08/16/19 09:20 B-Natriuretic Peptide 2704.4 pg/mL (0-100) H 08/16/19 09:20 Serum Total Protein 7.4 g/dL (6.0-8.3) 08/16/19 09:20 Albumin 3.8 g/dL (3.5-5.0) 08/16/19 09:20 - EKG Interpretation EKG: NSR, 90 bpm, no peaked t waves - Radiology Interpretation Chest x-ray Status: report reviewed by me Hospitalist H&P A/P - Problem (1) Dyspnea Code(s): R06.00 - DYSPNEA, UNSPECIFIED Status: Acute Assessment and Plan: Admit to IMCU, inpatient status Expected length of stay greater than 2 midnights Upon exam, mild respiratory distress on 3L NC, weaned from BiPap per Dr. Amato Missed HD on Thursday to access failure CXR + mild pulmonary vascular congestion BNP 2704 (3194 on 06/05), Trop 0.081 K 5.7, no EKG changes ER consulted Dr. Nava, placed hemoplit and consulted Dr. 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 Amato BNP 2704, was 3194 on 06/05 CXR mild pulmonary vascular congestion Will keep NPO Will continue oxygen support Strict I&Os and Daily weights last echocardiogram on 06/07/19, 40-45% EF (3) Hyperkalemia Code(s): E87.5 - HYPERKALEMIA Status: Acute Assessment and Plan: Currently 5.7, no EKG changes, asymptomatic Scheduled for urgent HD Cardiac monitoring Will check BMP in am (4) Elevated troponin Code(s): R79.89 - OTHER SPECIFIED ABNORMAL FINDINGS OF BLOOD CHEMISTRY Status : Acute Assessment and Plan: Denies chest pain Trops 0.081. CKMB 2.2 Likely demand ischemia secondary to FVO Will trend troponins (5) ESRD on dialysis Code(s): N18.6 - END STAGE RENAL DISEASE; Z99.2 - DEPENDENCE ON RENAL DIALYSIS Status: Chronic Assessment and Plan: Routine schedule MWF with Dr. Amato Will receive urgent HD today Dr. Amato to manage augmented schedule (6) DM type 2 (diabetes mellitus, type 2) Status: Chronic Assessment and Plan: Patient takes unknown insulin formulation at home Glucose 144 today Will start mild sliding scale Will check AC/HS Need nursing to reconcile home meds (7) CAD (coronary artery disease) Code(s): I25.10 - ATHSCL HEART DISEASE OF [place] CORONARY ARTERY W/O ANG PCTRS Status: Chronic Assessment and Plan: Taking ASA and effient Will restart home meds (8) HTN (hypertension) Code(s): I10 - ESSENTIAL (PRIMARY) HYPERTENSION Status: Chronic Assessment and Plan: Takes coreg 3.125mg BID Will restart home meds when reconciled. - Plan Plan: Consult PT LMWH DVT prophylaxis Protonix GI prophylaxis Full Code MPOA is spouse, Cris Alexander at [phone] Hylton
[2019-08-16 13:11] LABS: Troponin I 0.086 ng/mL (< 0.028)
--- NOTE | 2019-08-16 13:19 | OP ---
DATE OF PROCEDURE: 08/16/2019 PREOPERATIVE DIAGNOSES: 1. Chronic kidney failure. 2. Need for urgent hemodialysis. POSTOPERATIVE DIAGNOSES: 1. Chronic kidney failure. 2. Need for urgent hemodialysis. PROCEDURE PERFORMED: Placement of right femoral triple-lumen Trialysis catheter for hemodialysis. INDICATIONS FOR PROCEDURE: A 58-year-old man with history of end-stage kidney disease, on hemodialysis. His dialysis access failed. I was asked to place a temporary dialysis access to facilitate hemodialysis. DESCRIPTION OF PROCEDURE: Informed consent obtained from the patient. He was placed in supine position. Right groin was sterilely prepped and draped in the usual fashion. The right femoral artery was palpated at the groin. The skin medial to this was anesthetized with 1% lidocaine. The right femoral vein was cannulated with an 18-gauge introducer needle, returning dark venous blood. Guidewire was advanced through the needle and placed in the right femoral vein without resistance. The needle was withdrawn over the guidewire. A stab incision was made adjacent to the guidewire using an 11 scalpel. Dilator was passed over the guidewire, dilating the subcutaneous tissues. Dilator was removed and a triple-lumen Trialysis catheter was advanced over the guidewire and placed in the right femoral vein without resistance down to the hub. Guidewire was removed. Dark venous blood was aspirated from all 3 ports, which were individually flushed first with sterile saline followed by heparin. The catheter was secured to right groin using 3-0 nylon suture at 2 points. Sterile dressings were applied. The patient tolerated this operation without any apparent complication and remains hemodynamically stable following completion of the procedure. Job ID: [id number]
--- NOTE | 2019-08-16 13:30 | RAD ---
PORTABLE CHEST 1 VIEW: DATE: 08/16/2019. TIME: 8:40 a.m. HISTORY: Shortness of breath. FINDINGS/IMPRESSION: Comparison is made with the exam of 06/06/2019. The heart is enlarged. There is mild pulmonary vascular congestion. No lobar consolidation, pneumot horaces, or large effusions are seen. POS: [facility]
[2019-08-16] MEDS ORDERED: Albumin 25% 25 GM/100 ML BOT IVPB SCH (14:20)
[2019-08-16] MEDS ORDERED: Ondansetron PF 4 MG/2 ML Vial IVP PRN (14:43)
[2019-08-16 16:08] LABS: Troponin I 0.089 ng/mL (< 0.028)
[2019-08-16 16:11] VITALS: BMI 31.1
[2019-08-16] MEDS ORDERED: Metoclopramide HCl 10 MG TAB PO PRN (17:00)
[2019-08-16] MEDS: Carvedilol 3.125 MG TAB PO SCH (17:23)
[2019-08-16] MEDS: Sevelamer Carbonate 800 MG TAB PO SCH (17:23)
[2019-08-16] MEDS: Mometasone 200 MCG/Formoterol 5 MCG 120 PUFF INHALER INH SCH (19:25)
[2019-08-16] MEDS ORDERED: Atorvastatin Calcium 40 MG TAB PO SCH (21:00)
[2019-08-16] MEDS ORDERED: Metoclopramide HCl 10 MG/2 ML VIAL IVP SCH (22:00)
--- NOTE | 2019-08-16 22:18 | CON ---
DATE OF CONSULTATION: CONSULTING PHYSICIAN: Lm Lo MD REQUESTING PHYSICIAN: Hospitalist Program. IMPRESSION: 1. End-stage renal disease, hemodialysis dependent. 2. Respiratory distress in the context of missed dialysis. 3. Hyperkalemia related to end-stage renal disease with missed dialysis. PLAN: 1. The patient to be urgently dialyzed given the fact that is a compromised AV fistula. The patient to start dialysis with a temporary dialysis catheter placement. 2. Consult surgeon to place a temporary dialysis catheter. 3. Close examination of this patient's fistula did reveal acute dialysis team to obtain this access tomorrow. 4. Further management to be dependent on the clinical course. HISTORY OF PRESENT ILLNESS: History is that of a 58-year-old gentleman with end-stage renal disease, hemodialysis dependent, who for some reason skipped dialysis on Thursday and Thursday noted thrombosed left forearm AV fistula. Attempt was made to declot this afterwards. The patient went home instead of going to dialysis. Subsequently, the attempt by dialysis personnel to dialyze this patient afterwards revealed presence of clot. As a result, the patient was sent home. However, today, patient developed respiratory distress and decision was taken to transfer this patient to the hospital for further management. PAST MEDICAL HISTORY: Includes coronary artery disease status post multiple stents, asthma, end-stage renal disease, diabetes mellitus type 2. MEDICATIONS: Reviewed as documented on [email or web address]. FAMILY HISTORY: Nonsignificantly related to present illness. SOCIAL HISTORY: Remote alcohol abuse. No tobacco. REVIEW OF SYSTEMS: As documented in the body of the history. All other systems were reviewed and found not to be significantly related to present illness. LABORATORY INVESTIGATIONS: Significant for potassium of 5.7, creatinine 16.4, BUN of 86. PHYSICAL EXAMINATION: VITAL SIGNS: The patient was found to be in respiratory distress on BiPAP, noted with the following vital signs; afebrile, temperature 98, pulse 103, respiratory rate of , O2 saturation of 99% on BiPAP, blood pressure 135/81. HEENT: Unremarkable. CARDIOVASCULAR SYSTEM: First and second heart sounds were heard. RESPIRATORY SYSTEM: Revealed a lot of transmitted sounds on BiPAP. DIGESTIVE SYSTEM: Revealed a benign abdomen. EXTREMITIES: No peripheral edema. SKIN: No new gross rash. LYMPHATICS: No peripheral lymphadenopathy. SUMMARY: This is a 58-year-old gentleman with end-stage renal disease, hemodialysis dependent, who presented here for shortness of breath, having skipped two dialysis sessions. Thank you for this consultation. We will follow with you. Job ID: [id number]
[2019-08-17 05:04] LABS: #Eosinphils 0.2 thou/uL (0.0-0.7); #Monocytes 0.7 thou/uL (0.11-0.59); %Basophils 0.6 % (0.0-1.0); %Eosinophils 2.5 % (0.0-10.0); %Lymphocytes 24.8 % (21.0-51.0); %Monocytes 8.8 % (0.0-10.0); %Neutrophils 63.3 % (42.0-75.0); Hemoglobin 11.2 g/dL (14.0-18.0); Mean Corpuscular HGB CONC 31.9 g/dL (32.0-36.0); Mean Corpuscular Hemoglobin 30.5 pg (27.0-31.0); Mean Corpuscular Volume 95.5 fL (78.0-98.0); Mean Platelet Volume 8.5 fL (7.4-10.4); Platelet Count 172 thou/uL (130-400); RBC Distribution Width 15.3 % (11.5-14.5); Red Blood Cell (RBC) Count 3.69 mill/uL (4.70-6.10); White Blood Cell (WBC) Count 7.9 thou/uL (4.8-10.8)
[2019-08-17 05:08] LABS: Anion Gap 23 mmol/L (10-20); BUN (Urea Nitrogen) 70 mg/dL (8.4-25.7); Calc. Creatinine Clearance 7 mL/min (70-130); Calcium 8.6 mg/dL (7.8-10.44); Carbon Dioxide 22 mmol/L (22-29); Chloride 99 mmol/L (98-107); Estimated GFR-MDRD 4; Glucose 97 mg/dL (70-105); Potassium 4.6 mmol/L (3.5-5.1); Sodium 139 mmol/L (136-145)
[2019-08-17] MEDS: Mometasone 200 MCG/Formoterol 5 MCG 120 PUFF INHALER INH SCH (07:10)
[2019-08-17] MEDS ORDERED: Enoxaparin Sodium 40 MG/0.4 ML SYRINGE SC SCH (09:00)
[2019-08-17] MEDS ORDERED: Prasugrel 10 MG TAB PO SCH (09:00)
[2019-08-17] MEDS ORDERED: Aspirin 81 mg Enteric Coated Tablet PO SCH (09:00)
[2019-08-17] MEDS ORDERED: Pantoprazole 40 MG VIAL IVP SCH (09:00)
[2019-08-17] MEDS ORDERED: Folic Acid/Vit B Comp W-C PO SCH (09:00)
[2019-08-17] MEDS: Carvedilol 3.125 MG TAB PO SCH (10:31)
[2019-08-17] MEDS: Sevelamer Carbonate 800 MG TAB PO SCH ×2 (10:31→14:08)
[2019-08-17 14:07] VITALS: BP 113/69; TEMP 98.4
--- NOTE | 2019-08-17 16:57 | PRG ---
DATE OF SERVICE: 08/17/2019 SUBJECTIVE: The patient was seen and examined at dialysis. Noted with the following vital signs. OBJECTIVE: VITAL SIGNS: Afebrile, temperature 98.4, pulse 92, respiratory rate of 17, O2 saturations 96%, blood pressure 113/69. HEENT: Unremarkable. CARDIOVASCULAR SYSTEM: First and second heart sounds were heard. RESPIRATORY SYSTEM: Clear to auscultation. DIGESTIVE SYSTEM: Revealed a benign abdomen. EXTREMITIES: No peripheral edema. SKIN: No new gross rash. LYMPHATICS: No peripheral lymphadenopathy. IMPRESSION: 1. End-stage renal disease, on hemodialysis. 2. Respiratory distress, improved, status post hemodialysis with ultrafiltration of about 4 L. 3. to be used. PLAN: 1. Discontinue femoral catheter. 2. From the renal standpoint, the patient is due for discharge after dialysis. 3. The patient to continue with outpatient dialysis on Thursday. Job ID: [id number]
--- NOTE | 2019-08-18 05:21 | DIS ---
DATE OF ADMISSION: 08/16/2019 DATE OF DISCHARGE: 08/17/2019 DISCHARGE DIAGNOSES: 1. Shortness of breath. 2. Shortness of breath, most likely secondary to volume overload. 3. End-stage renal disease, on dialysis. 4. Hypertension. HOSPITAL COURSE: The patient is a 58-year-old male who initially presented to the hospital on 08/15, for thrombosed left forearm AV fistula. At this time, the patient underwent a temporary catheter placement on his right femoral area by Surgery. He then was dialyzed. The patient's fistula was declotted by Nephrology, and the patient now will be discharged home. He will follow up on his regular dialysis days. The patient currently is asymptomatic and he is ready to be discharged. MEDICATIONS: 1. Protonix 40 mg daily. 2. Prasugrel 5 mg daily. 3. Renvela 800 mg t.i.d. 4. Aspirin 81 mg daily. 5. Atorvastatin 80 mg at bedtime. 6. Carvedilol 3.125 b.i.d. 7. NovoLog 70/30, 20 units twice a day. 8. Symbicort 2 puffs b.i.d. p.r.n. 9. Ipratropium 3 mL q.i.d. p.r.n. PHYSICAL EXAMINATION: VITAL SIGNS: Temperature 98.4, pulse 92, respiratory rate 17, oxygen saturation 96% on 2 L, he is normally on 2 to 3 L, blood pressure 113/69. GENERAL: He is awake, alert, and oriented x3. Does not appear in distress. CV: S1, S2 present. No murmurs, rubs, or gallops. ABDOMEN: Soft and nontender. Bowel sounds are present x2. DISPOSITION: He will be discharged home. FOLLOWUP: Follow up with his primary and also Nephrology. Job ID: [id number]
[2019-08-18] MEDS ORDERED: Enoxaparin Sodium 30 MG/0.3 ML SYRINGE SC SCH (09:00)
== END 2019-08-17 15:05 | disposition home or self-care (01) | DRG 640 ==
LOC: ERS 08:31 → 2NO 10:40
PROVIDERS: ADMIT Internal Medicine; ATTEND Internal Medicine
PROC: 06HY33Z Insertion of Infusion Device into Lower Vein, Percutaneous Approach (ICD-10-PCS; principal; 2019-08-16)
PROC: 5A1D70Z Performance of Urinary Filtration, Intermittent, Less than 6 Hours Per Day (ICD-10-PCS; 2019-08-16)
DX: E87.70 Fluid overload, unspecified (principal); N18.6 End stage renal disease; T82.868A Thrombosis due to vascular prosthetic devices, implants and grafts, initial encounter; I12.0 Hypertensive chronic kidney disease with stage 5 chronic kidney disease or end stage renal disease; E87.5 Hyperkalemia; Y83.2 Surgical operation with anastomosis, bypass or graft as the cause of abnormal reaction of the patient, or of later complication, without mention of misadventure at the time of the procedure; I25.10 Atherosclerotic heart disease of native coronary artery without angina pectoris; E78.5 Hyperlipidemia, unspecified; J45.909 Unspecified asthma, uncomplicated; E11.22 Type 2 diabetes mellitus with diabetic chronic kidney disease; R79.89 Other specified abnormal findings of blood chemistry; Z79.4 Long term (current) use of insulin; Z99.81 Dependence on supplemental oxygen; Z88.6 Allergy status to analgesic agent; Z95.5 Presence of coronary angioplasty implant and graft; Z88.0 Allergy status to penicillin; Z98.42 Cataract extraction status, left eye; Z98.41 Cataract extraction status, right eye; Z91.15 Patient's noncompliance with renal dialysis
CPT/HCPCS: 36415; 36416; 36556; 71045; 80048; 80053; 82553; 83880; 84484; 85025; 90935; 93005; 94660; 94664; C1752; G0257; J1642; J2405; Q0162

== ENCOUNTER 2019-10-24 12:46 | Inpatient (IN) | payer MEDICARE, OTHER ==
[2019-10-24] MEDS ORDERED: Ondansetron PF 4 MG/2 ML Vial IVP PRN (15:51)
[2019-10-24] MEDS ORDERED: Ondansetron ODT 4 MG TAB PO PRN (15:51)
[2019-10-24] MEDS ORDERED: Senokot S 8.6-50 MG TAB PO PRN (15:51)
[2019-10-24] MEDS ORDERED: Acetaminophen 650 MG Suppository PR PRN (15:51)
[2019-10-24] MEDS ORDERED: Guaifenesin DM 100-10/5 ML UDCUP PO PRN (15:51)
[2019-10-24] MEDS ORDERED: Acetaminophen 325 MG TAB PO PRN (15:51)
[2019-10-24] MEDS ORDERED: Albuterol 200 PUFF (6.7GM INHALER) INH PRN (16:10)
[2019-10-24] MEDS ORDERED: Dextrose 50% Abboject 50 ML SYRINGE SLOW IVP PRN (16:17)
[2019-10-24] MEDS ORDERED: Dextrose 5% in Water 1,000 ML IV PRN (16:17)
[2019-10-24] MEDS ORDERED: HumaLOG 300 UNITS/3 ML VIAL SC PRN (16:17)
[2019-10-24 16:38] VITALS: BMI 31.7
--- NOTE | 2019-10-24 16:50 | HP ---
PRIMARY CARE PHYSICIAN: Dr. Chris Berger. CHIEF COMPLAINT: Shortness of breath. HISTORY OF PRESENT ILLNESS: This is a 58-year-old male with a known history of end-stage renal disease, on dialysis, who gets volume overloaded routinely, admitted to the hospital multiple times for this. He does take 2 L of oxygen at home at baseline. He was diagnosed with COVID about 3 weeks ago, was in the hospital [place] for a few days and discharged. He did finish a dexamethasone course. He reports that for the past couple of days, he has an increasing shortness of breath. He did report that he had missed dialysis this past Thursday. He states that he has been having some chest pain on and off and shortness of breath and this feels exactly like his typical volume overload episodes. He has had a little bit of slight cough. This also is typical for his episodes. He has not felt any return of his COVID symptoms from 3 weeks ago. He has not been retested recently. The patient presented to the [facility]. There, he was saturating okay, but however, he became tachypneic and then desatted in the emergency room down to the 80s. He was put on a high-dose oxygen and they were able to get his O2 saturations up he was tripoding and so they put him on BiPAP. This improved his symptoms markedly and he is doing much better. He is now in the IMCU, waiting for dialysis. The patient does see Dr. Amato for his dialysis. REVIEW OF SYSTEMS: CONSTITUTIONAL: No fevers. No chills. EYES: No double vision or new blurred vision. He does have chronic vision problems from his diabetes. ENT: No congestion, drainage, or sore throat. CARDIOVASCULAR: He does have chest pains on and off. This is not actually anything new, none currently right now. No palpitations or racing heart. PULMONARY: See HPI. GASTROINTESTINAL: No abdominal pain. No nausea or vomiting. He has had diarrhea for the last few days. He gets this routinely. GENITOURINARY: Does not produce any urine. MUSCULOSKELETAL: No muscle aches or joint pain. SKIN: No rashes or other lesions noted. NEUROLOGIC: No numbness, tingling, or focal weakness. PAST MEDICAL HISTORY: 1. End-stage renal disease, on hemodialysis. 2. Coronary artery disease with previous stents. 3. Chronic combined systolic and diastolic congestive heart failure with most recent ejection fraction of 40% to 45% in June of this year. 4. Diabetes mellitus, type 2, just takes as needed insulin. 5. Anemia of renal disease. 6. Secondary hyperparathyroidism. 7. Gastroesophageal reflux disease. 8. Asthma/COPD, on chronic home O2 of 2 L. PAST SURGICAL HISTORY: 1. Cardiac catheterization with several stents. 2. Right upper extremity AV fistula. 3. Right great toe amputation. 4. Right 3rd toe through 5th toe amputation. 5. Cataract repair. SOCIAL HISTORY: The patient is and lives at home with his . He is a full code. Should he be incapacitated, his and his daughter would be his medical decision makers. No history of tobacco, alcohol, or illicit drug use. FAMILY HISTORY: Positive for lung cancer in his mother and multiple family members with diabetes and hypertension. ALLERGIES: 1. PENICILLIN. 2. TRAMADOL. CURRENT MEDICATIONS: The patient does not remember his medications right now. Per the ER list, he is on; 1. Aspirin 81 mg daily. 2. Atorvastatin most recently 80 mg at night. 3. Carvedilol, listed as 6.25 mg twice a day in the emergency room records. However, for his most recent hospitalization, he was actually on 3.125 mg half tab in the morning and one tab at night. 4. Protonix 40 mg daily. 5. Symbicort two puffs inhaled twice a day. 6. Effient, unknown dose. 7. Ipratropium bromide neb as needed. 8. Gabapentin, unknown dose. PHYSICAL EXAMINATION: VITAL SIGNS: Blood pressure 186/106; pulse 104; respirations 24, currently on BiPAP; and O2 saturation 100% on the BiPAP with 30% FiO2. GENERAL: This is a well-developed, well-nourished male, in no acute distress, on BiPAP. HEENT: Pupils are equal, round, and reactive to light. Oropharynx with BiPAP mask in place. Decent seal. NECK: Supple. No lymphadenopathy. No thyroid nodules or enlargement. No JVD. HEART: Regular rate and rhythm. No murmurs, rubs, or gallops. LUNGS: Have some decreased tight sounding breath sounds bilaterally throughout. No focal findings. No increased work of breathing, currently on the BiPAP. GASTROINTESTINAL: Abdomen is soft, nontender to palpation. Normoactive bowel sounds. No hepatosplenomegaly or other masses. EXTREMITIES: No clubbing, cyanosis, or edema. He does have the absent toes on his right foot. SKIN: No rashes or other lesions noted. NEUROLOGIC: The patient moves all extremities equally. No facial droop. PSYCHIATRIC: Alert and oriented x3. Normal mood and affect. LABORATORY DATA: CBC with a white blood cell count of 8.1, hemoglobin 11.0, hematocrit 34.8, and platelet count 186. The rest was normal. Arterial blood gas done on 4 L nasal cannula in the outside emergency room shows a pH of 7.37, pCO2 of 33.3, and pO2 of 69. CMP notable for potassium of 5.2, carbon dioxide of 19, anion gap of 25, BUN of 72, creatinine of 15.99, which is about baseline for him, glucose of 208. The rest was normal. Brain natriuretic peptide was very elevated at 2900, which is about similar to his previous ones. Troponin is 0.073, which is also consistent with his previous ones. IMAGING DATA: Chest x-ray, I did review the chest x-ray done in the emergency room along with the radiologist's report. It does show diffuse bilateral infiltrates slightly worse from when he was in with his COVID infection earlier last month. No acute findings. ASSESSMENT AND PLAN: 1. End-stage renal disease with volume overload and resulting hypertensive urgency and dyspnea. The patient needs urgent dialysis. I suspect this is the etiology of his symptoms. Dr. Amato has been consulted and he will get dialysis soon. Can try to wean him off the BiPAP mask once dialysis is complete. 2. Acute on chronic hypoxic respiratory failure. Doing well, currently on BiPAP. We will try and wean that off back to his home O2 after he gets dialysis. It is possible that he is actually having some problems from the COVID infection. However, he has had it for 3 weeks now and not really having other symptoms from the COVID, so I suspect this is mostly his volume status. 3. COVID pneumonia. The patient as far as other COVID symptoms is much improved in the last month, we will go ahead and recheck a COVID in the hospital here to see if he is still positive as he might have for any clear the infection. 4. Coronary artery disease. 5. Diabetes mellitus, type 2. We will put the patient on insulin sliding scale as needed and fingerstick blood sugars q.a.c. and at bedtime. 6. Hypertension with hypertensive urgency. The patient will get dialysis and we will resume his home blood pressure medications. We will give p.r.n. medications as well. 7. Code status: The patient is a full code. Should he be incapacitated, his would be his medical decision maker, her name is Isa Alexander. Job ID: [id number]
[2019-10-24] MEDS: Carvedilol 3.125 MG TAB PO SCH (18:09)
[2019-10-24] MEDS: Mometasone 200 MCG/Formoterol 5 MCG 120 PUFF INHALER INH SCH (20:59)
[2019-10-24] MEDS: Atorvastatin Calcium 40 MG TAB PO SCH (21:45)
[2019-10-24] MEDS: Heparin 5,000 UNITS/ML VIAL SC SCH (21:45)
[2019-10-24] MEDS ORDERED: Sodium Chloride 0.9% 500 ML IVPB SCH (23:00)
--- NOTE | 2019-10-24 23:13 | PDOC.EVN ---
Event Note - Event Note Event Note: Nurse called. patient s/p HD, 3.6L off, hypotensive 88/59, HR 90s, neuro baseline. Place trend. and give 500ml bolus.
[2019-10-25 03:46] LABS: #Monocytes 0.5 thou/uL (0.11-0.59); #Neutrophils 5.3 thou/uL (1.40-6.50); %Basophils 0.2 % (0.0-1.0); %Eosinophils 0.1 % (0.0-10.0); %Lymphocytes 14.7 % (21.0-51.0); Hemoglobin 10.6 g/dL (14.0-18.0); Mean Corpuscular HGB CONC 31.5 g/dL (32.0-36.0); Mean Corpuscular Hemoglobin 30.8 pg (27.0-31.0); Mean Corpuscular Volume 97.7 fL (78.0-98.0); Mean Platelet Volume 8.6 fL (7.4-10.4); Platelet Count 164 thou/uL (130-400); RBC Distribution Width 15.7 % (11.5-14.5); Red Blood Cell (RBC) Count 3.44 mill/uL (4.70-6.10); White Blood Cell (WBC) Count 6.8 thou/uL (4.8-10.8)
[2019-10-25 04:07] LABS: Anion Gap 19 mmol/L (10-20); BUN (Urea Nitrogen) 46 mg/dL (8.4-25.7); Calc. Creatinine Clearance 10 mL/min (70-130); Calcium 8.5 mg/dL (7.8-10.44); Carbon Dioxide 26 mmol/L (22-29); Chloride 96 mmol/L (98-107); Estimated GFR-MDRD 6; Glucose 157 mg/dL (70-105); Potassium 4.7 mmol/L (3.5-5.1); Sodium 136 mmol/L (136-145)
--- NOTE | 2019-10-25 06:32 | CON ---
DATE OF CONSULTATION: 10/24/2019 CONSULTING PHYSICIAN: Lm Lo MD REQUESTING PHYSICIAN: Dr. Armstrong. REASON FOR CONSULTATION: Need for maintenance hemodialysis. IMPRESSION: 1. End-stage renal disease, on hemodialysis on Thursday, , and Thursday schedule for now due to COVID status. 2. Shortness of breath, likely combination of skipped dialysis and COVID status. 3. Diabetes mellitus. 4. Coronary artery disease, status post multiple stents. PLAN: 1. The patient to be dialyzed today with ultrafiltration as tolerated by hemodynamics. 2. Re-evaluation of the patient's COVID status and the continued plan for management. HISTORY OF PRESENT ILLNESS: This is a 58-year-old gentleman who skipped dialysis on Thursday because he had to attend a family . The patient currently on Thursday, , Thursday schedule. Because of recent positive results of COVID status, he had to be in isolation. In any case, the patient denies any fever, and the need for hemodialysis with ultrafiltration necessitated this Renal consult. PAST MEDICAL HISTORY: Significant for; 1. End-stage renal disease, on hemodialysis. 2. Coronary artery disease, status post multiple stents. 3. Combined systolic and diastolic congestive heart failure with EF of about 40%. 4. Diabetes mellitus type 2. 5. Anemia. 6. Secondary hyperparathyroidism. 7. Asthma/chronic obstructive pulmonary disease. MEDICATIONS: Reviewed and documented on [employer]. ALLERGIES: PENICILLIN AND TRAMADOL. FAMILY HISTORY: Not significantly related to present illness. SOCIAL HISTORY: The patient is . No alcohol. No tobacco. No illicit drug use. REVIEW OF SYSTEMS: As documented in the body of the history. All the other systems were reviewed and found not to be significantly related to present illness. PHYSICAL EXAMINATION: GENERAL: The patient was found to be doing okay on dialysis with following vital signs. VITAL SIGNS: Blood pressure 133/95 with heart rate of 96, respiratory rate of 19, O2 saturation of 100%. HEENT: Unremarkable. CARDIOVASCULAR: First and second heart sounds were heard. RESPIRATORY: Clear to auscultation. DIGESTIVE SYSTEM: Revealed a benign abdomen with positive bowel sounds. EXTREMITIES: No peripheral edema. SKIN: No new gross rash. LYMPHATICS: No peripheral lymphadenopathy. SUMMARY: A 58-year-old gentleman with end-stage renal disease, hemodialysis dependent, who presented here short of breath after skipping 1 dialysis treatment. Thank you for this consultation. We will follow with you. Job ID: [id number]
[2019-10-25] MEDS: HumaLOG 300 UNITS/3 ML VIAL SC PRN ×3 (06:40→16:34)
[2019-10-25] MEDS: Heparin 5,000 UNITS/ML VIAL SC SCH ×3 (09:43→22:38)
[2019-10-25] MEDS: Aspirin 81 mg Enteric Coated Tablet PO SCH (09:43)
[2019-10-25] MEDS: Carvedilol 3.125 MG TAB PO SCH ×2 (10:29→16:33)
--- NOTE | 2019-10-25 13:53 | PDOC.HOSPP ---
- Subjective Encounter Date: 10/25/19 Encounter Time: 11:00 Subjective: Patient reports no SOB this morning. No further cough. No chest pain. - Objective Vital Signs & Weight: Vital Signs (12 hours) Temp Pulse Resp BP Pulse Ox 10/25/19 13:00 87 16 116/75 100 10/25/19 12:00 98.2 F 89 22 H 88/60 L 100 10/25/19 11:00 86 20 92/64 100 10/25/19 10:30 90/52 L 10/25/19 10:00 84 20 100/66 100 10/25/19 09:30 101/72 10/25/19 09:11 92/67 10/25/19 09:00 98.0 F 96 20 79/49 L 100 10/25/19 07:30 100 Weight Weight 209 lb Most Recent Monitor Data Heart Rate from ECG 86 NIBP 102/80 NIBP BP-Mean 87 Respiration from ECG 15 SpO2 100 Result Diagrams: 10/25/19 03:25 10/25/19 03:25 Additional Labs: Accuchecks 10/25/19 06:44 POC Glucose 209 H Hospitalist ROS - Review of Systems Constitutional: denies: fever, chills Respiratory: denies: cough, shortness of breath Cardiovascular: denies: chest pain, palpitations Gastrointestinal: reports: diarrhea. denies: nausea, vomiting, abdominal pain - Medication Medications: Active Medications Generic Name Dose Route Start Last Admin Trade Name Freq PRN Reason Stop Dose Admin Aspirin 81 mg 10/25/19 09:00 10/25/19 09:43 Ecotrin PO 81 mg DAILY TAO Administration Atorvastatin Calcium 80 mg 10/24/19 21:00 10/24/19 21:45 Lipitor PO 80 mg HS TAO Administration Carvedilol 3.125 mg 10/24/19 17:00 10/25/19 10:29 Coreg PO Not Given BID-[facility] Heparin Sodium (Porcine) 5,000 units 10/24/19 21:00 10/25/19 09:43 Heparin SC 5,000 units TID TAO Administration Insulin Human Lispro 0 units 10/24/19 16:17 10/25/19 11:59 Humalog SC 3 unit .MILD SLIDING SCALE PRN Administration Mild Correctional Scale Mometasone Furoate/Formoterol Fumar 2 puff 10/24/19 18:30 10/24/19 20:59 Dulera 200 Mcg/5 Mcg Inhaler INH Not Given BID-RT TAO Pantoprazole Sodium 40 mg 10/25/19 09:00 10/25/19 10:28 Protonix PO 40 mg DAILY TAO Administration - Exam General Appearance: NAD, awake alert ENT: moist mucosa Heart: RRR, no murmur, no gallops, no rubs Respiratory: CTAB, no wheezes, no rales, no ronchi Gastrointestinal: soft, non-tender, non-distended, normal bowel sounds Psychiatric: normal affect, normal behavior, A&O x 3 Hosp A/P (1) Acute on chronic respiratory failure with hypoxia Code(s): J96.21 - ACUTE AND CHRONIC RESPIRATORY FAILURE WITH HYPOXIA Status: Acute (2) Volume overload Code(s): E87.70 - FLUID OVERLOAD, UNSPECIFIED Status: Acute (3) ESRD on dialysis Code(s): N18.6 - END STAGE RENAL DISEASE; Z99.2 - DEPENDENCE ON RENAL DIALYSIS Status: Chronic (4) COVID-19 Code(s): U07.1 - COVID-19 Status: Acute (5) CAD (coronary artery disease) Code(s): I25.10 - ATHSCL HEART DISEASE OF [place] CORONARY ARTERY W/O ANG PCTRS Status: Chronic (6) DM type 2 (diabetes mellitus, type 2) Status: Chronic (7) HTN (hypertension) Code(s): I10 - ESSENTIAL (PRIMARY) HYPERTENSION Status: Chronic - Plan Patient doing much better after dialysis yesterday. Still on 5L NC. Will try to wean down to his home O2. Repeat Covid-19 test pending. Possibly home tomorrow if able to get back to 2L NC.
[2019-10-25 14:42] LABS: SARS-CoV-2 MS2 Positive; SARS-CoV-2 N Gene Negative; SARS-CoV-2 S Gene Negative; SARS-CoV-2 orf1ab Negative
[2019-10-25] MEDS: Midodrine HCl 5 MG TAB PO SCH ×2 (15:48→22:37)
[2019-10-25] MEDS: Sevelamer Carbonate 800 MG TAB PO SCH (16:33)
[2019-10-25] MEDS ORDERED: Metoclopramide HCl 10 MG TAB PO PRN (17:00)
[2019-10-25 18:50] VITALS: BP 137/93
--- NOTE | 2019-10-25 19:03 | PRG ---
DATE OF SERVICE: 10/25/2019 SUBJECTIVE: The patient was seen and examined, eager to go home, noted with the following vital signs. OBJECTIVE: VITAL SIGNS: Afebrile, temperature 98.5, pulse 89, respiratory rate of 18, O2 saturation 100%, blood pressure 123/77. HEENT: Unremarkable. CARDIOVASCULAR SYSTEM: First and second heart sounds were heard. RESPIRATORY SYSTEM: Clear to auscultation. DIGESTIVE SYSTEM: Revealed a benign abdomen. EXTREMITIES: No peripheral edema. SKIN: No new gross rash. LYMPHATICS: No peripheral lymphadenopathy. IMPRESSION: 1. End-stage renal disease, on hemodialysis. 2. COVID infection. The patient has tested positive x1. 3. Respiratory distress, status post dialysis with ultrafiltration, improved. PLAN: 1. The patient to be dialyzed tomorrow and if the patient's second set of COVID remains negative, the patient can be taken off precautions and go back on Thursday, Thursday, Thursday scheduled dialysis as an outpatient. 2. Further management to be dependent on the clinical course. Job ID: [id number]
[2019-10-25] MEDS: Mometasone 200 MCG/Formoterol 5 MCG 120 PUFF INHALER INH SCH ×2 (22:28)
[2019-10-25] MEDS: Atorvastatin Calcium 40 MG TAB PO SCH (22:37)
[2019-10-25] MEDS: HumuLIN 70/30 (300 UNITS/3 ML VIAL) SC SCH (23:39)
[2019-10-26] MEDS: HumaLOG 300 UNITS/3 ML VIAL SC PRN (06:45)
--- NOTE | 2019-10-26 08:47 | PDOC.HOSPP ---
- Subjective Encounter Date: 10/26/19 Encounter Time: 12:00 Subjective: Patient feeling back to baseline. Eager to go home. Supposed to be on antibiotics leading up to his foot surgery at [facility] tomorrow. - Objective Vital Signs & Weight: Vital Signs (12 hours) Temp Pulse Resp Pulse Ox 10/26/19 04:36 98.5 F 10/26/19 04:00 100 10/26/19 00:00 100 10/25/19 23:23 98.1 F 10/25/19 22:28 82 16 100 Weight Weight 201 lb 8.04 oz Most Recent Monitor Data Heart Rate from ECG 79 NIBP 97/60 NIBP BP-Mean 72 Respiration from ECG 16 SpO2 100 I&O: 10/25/19 10/26/19 10/27/19 06:59 06:59 06:59 Intake Total 1260 Balance 1260 Result Diagrams: 10/25/19 03:25 10/25/19 03:25 Additional Labs: Accuchecks 10/25/19 10/25/19 10/24/19 15:59 06:44 21:55 POC Glucose 170 H 209 H 154 H Hospitalist ROS - Review of Systems Constitutional: denies: fever, chills Respiratory: denies: cough, shortness of breath Cardiovascular: denies: chest pain, palpitations Gastrointestinal: denies: nausea, vomiting, abdominal pain - Medication Medications: Active Medications Generic Name Dose Route Start Last Admin Trade Name Freq PRN Reason Stop Dose Admin Aspirin 81 mg 10/25/19 09:00 10/25/19 09:43 Ecotrin PO 81 mg DAILY TAO Administration Atorvastatin Calcium 80 mg 10/24/19 21:00 10/25/19 22:37 Lipitor PO 80 mg HS TAO Administration Carvedilol 3.125 mg 10/24/19 17:00 10/25/19 16:33 Coreg PO 3.125 mg BID-WM TAO Administration Heparin Sodium (Porcine) 5,000 units 10/24/19 21:00 10/25/19 22:38 Heparin SC 5,000 units TID TAO Administration Insulin Human Isoph/Insulin Regular 20 units 10/25/19 21:00 10/25/19 23:39 Humulin 70/30 SC Not Given BID [facility] Insulin Human Lispro 0 units 10/24/19 16:17 10/26/19 06:45 Humalog SC 3 unit .MILD SLIDING SCALE PRN Administration Mild Correctional Scale Midodrine 2.5 mg 10/25/19 15:00 10/25/19 22:37 Proamatine PO 2.5 mg TID TAO Administration Mometasone Furoate/Formoterol Fumar 2 puff 10/24/19 18:30 10/25/19 22:28 Dulera 200 Mcg/5 Mcg Inhaler INH 2 puff BID-RT TAO Administration Pantoprazole Sodium 40 mg 10/25/19 09:00 10/25/19 10:28 Protonix PO 40 mg DAILY TAO Administration Sevelamer Carbonate 800 mg 10/25/19 17:00 10/25/19 16:33 Renvela PO 800 mg TID-WM TAO Administration - Exam General Appearance: NAD, awake alert ENT: moist mucosa Heart: RRR, no murmur, no gallops, no rubs Respiratory: CTAB, no wheezes, no rales, no ronchi Gastrointestinal: soft, non-tender, non-distended, normal bowel sounds Psychiatric: normal affect, normal behavior, A&O x 3 Hosp A/P (1) Acute on chronic respiratory failure with hypoxia Code(s): J96.21 - ACUTE AND CHRONIC RESPIRATORY FAILURE WITH HYPOXIA Status: Acute (2) Volume overload Code(s): E87.70 - FLUID OVERLOAD, UNSPECIFIED Status: Acute (3) ESRD on dialysis Code(s): N18.6 - END STAGE RENAL DISEASE; Z99.2 - DEPENDENCE ON RENAL DIALYSIS Status: Chronic (4) COVID-19 Code(s): U07.1 - COVID-19 Status: Acute (5) CAD (coronary artery disease) Code(s): I25.10 - ATHSCL HEART DISEASE OF [place] CORONARY ARTERY W/O ANG PCTRS Status: Chronic (6) DM type 2 (diabetes mellitus, type 2) Status: Chronic (7) HTN (hypertension) Code(s): I10 - ESSENTIAL (PRIMARY) HYPERTENSION Status: Chronic - Plan Patient doing much better after dialysis yesterday. Sating well on 1L NC this morning. Repeat Covid-19 test negative x1, second test pending, if neg can d/c precautions Had dialysis this AM. Will d/c home. Will give doses of his preop antibiotics before d/c and then he can continue tonight.
[2019-10-26] MEDS ORDERED: Prasugrel 10 MG TAB PO SCH (09:00)
[2019-10-26] MEDS: Mometasone 200 MCG/Formoterol 5 MCG 120 PUFF INHALER INH SCH (11:26)
[2019-10-26] MEDS: Aspirin 81 mg Enteric Coated Tablet PO SCH (11:26)
[2019-10-26] MEDS: Sevelamer Carbonate 800 MG TAB PO SCH ×2 (11:26→11:33)
[2019-10-26] MEDS: Midodrine HCl 5 MG TAB PO SCH (11:26)
[2019-10-26] MEDS: Heparin 5,000 UNITS/ML VIAL SC SCH (11:27)
[2019-10-26] MEDS: HumuLIN 70/30 (300 UNITS/3 ML VIAL) SC SCH (11:27)
[2019-10-26] MEDS: Carvedilol 3.125 MG TAB PO SCH (11:29)
[2019-10-26] MEDS ORDERED: Cephalexin 250 MG CAP PO SCH ×2 (12:30→15:00)
[2019-10-26 12:43] VITALS: TEMP 98.4
[2019-10-26] MEDS ORDERED: metroNIDAZOLE 500 MG TAB PO SCH ×2 (12:45→15:00)
[2019-10-26 14:49] LABS: SARS-CoV-2 MS2 Positive; SARS-CoV-2 N Gene Positive; SARS-CoV-2 S Gene Positive; SARS-CoV-2 orf1ab Positive
[2019-10-26] MEDS ORDERED: Non-Formulary Item 1 EACH (Cephalexin [Keflex] 500 MG) PO SCH (15:00)
--- NOTE | 2019-10-26 17:18 | DIS ---
DATE OF ADMISSION: 10/24/2019 DATE OF DISCHARGE: 10/26/2019 PRIMARY CARE PHYSICIAN: Chris Berger. PRIMARY CHARHOUSE WORKER: Dr. Amato. REASON FOR ADMISSION: Shortness of breath. DIAGNOSES AT DISCHARGE: 1. Acute on chronic respiratory failure with hypoxia, improved. 2. Volume overload, resolved. 3. End-stage renal disease, on dialysis. 4. COVID-19 infection, appears to have resolved, second confirmatory negative is pending. 5. Coronary artery disease. 6. Diabetes mellitus, type 2. 7. Hypertension. PROCEDURES: None. CONSULTATIONS: Nephrology, Dr. Amato. SUMMARY OF HOSPITAL COURSE: This is a 58-year-old male with a known history of end-stage renal disease, on dialysis. He gets volume overloaded routinely and gets hypoxic from it. He is on 2 L of oxygen at home at baseline. The patient was diagnosed with COVID about 3 weeks ago, though his symptoms seemed to have improved since then. He was in [facility] for a few days and was discharged and finished a dexamethasone course. The patient reports that for the last couple of days, he has had increased shortness of breath. He did miss his dialysis on Thursday prior to admission. He was also having some chest pains on and off. He says his symptoms feel exactly like his typical volume overload episodes. He did present to the [facility]. There, he became tachypneic and desatted down to the 80s, was put on high dose oxygen, and they were able to get his O2 sats up, but he was tripoding, so they put him on BiPAP. This improved his symptoms markedly. Due to his risk of deterioration, they sent him over here for admission in case he needed Pulmonology. Dr. Amato saw him when he is admitted to the hospital and he did urgent dialysis on him with resolution of his shortness of breath symptoms. He was then able to start being weaned off the oxygen. The patient was initially weaned down to 1 L nasal cannula, was saturating well, was able to get up and ambulate, and so he is being discharged home. DISCHARGE MANAGEMENT: Discharged home. ACTIVITY: As tolerated. DIET: Diabetic renal diet. FOLLOWUP: Follow up with Dr. Amato for dialysis as directed and with his [facility] doctors for planned surgery on his foot tomorrow. DISCHARGE MEDICATIONS: 1. Aspirin 81 mg daily. 2. Atorvastatin 80 mg at night. 3. RenaPlex-D tablets one tablet p.o. daily. 4. Carvedilol 3.125 mg twice a day. 5. Keflex preoperatively 500 mg 3 times a day. 6. Metronidazole preoperatively 500 mg 3 times a day. 7. [place] 10/325 mg as needed for pain. 8. NovoLog Mix 70/30 20 units subcu twice a day. 9. Ipratropium/albuterol sulfate, DuoNeb as needed. 10. Metoclopramide 5 mg q.8 hours as needed with meals. 11. Midodrine 2.5 mg 3 times a day. 12. Zofran as needed for nausea. 13. Protonix 40 mg daily. 14. Effient 5 mg daily. 15. Renvela 800 mg 3 times a day. 16. Symbicort 2 puffs twice a day. Arranging the details of this discharge took 32 minutes. Job ID: [id number] MTDD
--- NOTE | 2019-10-26 18:48 | PRG ---
DATE OF SERVICE: 10/26/2019 SUBJECTIVE: The patient is seen and examined, seems to be doing better, noted with following vital signs. OBJECTIVE: VITAL SIGNS: Afebrile. GENERAL: Hemodynamically stable. HEENT: Unremarkable. CARDIOVASCULAR SYSTEM: First and second heart sounds were heard. RESPIRATORY SYSTEM: Clear to auscultation. DIGESTIVE SYSTEM: Revealed a benign abdomen. Positive bowel sounds. EXTREMITIES: No peripheral edema. SKIN: No new gross rash. LYMPHATICS: No peripheral lymphadenopathy. IMPRESSION: 1. End-stage renal disease. 2. COVID infection. 3. Respiratory distress, improved. 4. Status post dialysis. PLAN: 1. The patient to be dialyzed today with ultrafiltration as tolerated by hemodynamics. 2. Further management to be dependent on the clinical course. Job ID: [id number]
== END 2019-10-26 13:30 | disposition home or self-care (01) | DRG 177 ==
LOC: IMCU/EMU 14:07
PROVIDERS: ADMIT Emergency Medicine; ATTEND Emergency Medicine
PROC: 5A09457 Assistance with Respiratory Ventilation, 24-96 Consecutive Hours, Continuous Positive Airway Pressure (ICD-10-PCS; principal; 2019-10-24)
PROC: 8E0ZXY6 Isolation (ICD-10-PCS; 2019-10-24)
PROC: 5A1D70Z Performance of Urinary Filtration, Intermittent, Less than 6 Hours Per Day (ICD-10-PCS; 2019-10-25)
DX: U07.1 COVID-19 (principal); J96.21 Acute and chronic respiratory failure with hypoxia; N18.6 End stage renal disease; J12.89 Other viral pneumonia; I50.42 Chronic combined systolic (congestive) and diastolic (congestive) heart failure; N25.81 Secondary hyperparathyroidism of renal origin; J44.0 Chronic obstructive pulmonary disease with (acute) lower respiratory infection; E87.70 Fluid overload, unspecified; I25.10 Atherosclerotic heart disease of native coronary artery without angina pectoris; E11.22 Type 2 diabetes mellitus with diabetic chronic kidney disease; D63.1 Anemia in chronic kidney disease; I16.0 Hypertensive urgency; K21.9 Gastro-esophageal reflux disease without esophagitis; I95.9 Hypotension, unspecified; Z79.4 Long term (current) use of insulin; Z99.81 Dependence on supplemental oxygen; Z99.2 Dependence on renal dialysis; Z88.0 Allergy status to penicillin; Z88.6 Allergy status to analgesic agent; Z79.82 Long term (current) use of aspirin; Z79.899 Other long term (current) drug therapy; Z79.51 Long term (current) use of inhaled steroids
CPT/HCPCS: 36416; 80048; 85025; 87635; 90935; 94660; G0257; J1644; J1815; J7030; U0003

== ENCOUNTER 2020-05-29 11:30 | Day surgery (SDC) | payer MEDICARE ==
[2020-05-28 14:18] VITALS: BMI 30.4
[~2020-05-29 11:30] MED LIST: Lidocaine 1% PF 5 ML VIAL ONE; PROPOFOL 200 MG/20 ML VIAL ONE; ePHEDrine 50 MG/ML VIAL ONE
[2020-05-29 13:23] LABS: SARS-CoV-2 NAA Rapid Test Not Detected (NotDetected)
--- NOTE | 2020-05-29 20:35 | OP ---
DATE OF PROCEDURE: 05/29/2020 PROCEDURE: Colonoscopy. PREPROCEDURE DIAGNOSIS: History of colon polyps, last colonoscopy was in 2011. POSTPROCEDURE DIAGNOSES: 1. Exam to cecum; adequate bowel preparation. 2. Mild nonspecific patchy erythema in the sigmoid colon, not biopsied. 3. Small internal hemorrhoids. 4. No colon polyps seen. 5. Diffusely redundant colon. 6. Otherwise normal colonoscopy. PROCEDURE IN DETAIL: Written informed consent was obtained. The patient was brought to the endoscopy suite. Total intravenous anesthesia was administered by Dr. Kalyan Pascal and associates. The patient was placed in the left lateral decubitus position. A digital rectal exam revealed mild anal stenosis. A Pentax video colonoscope was inserted through the anal canal and advanced under direct visualization to the cecum. Position in the cecum was verified by clear identification of the appendiceal orifice and the ileocecal valve. The quality of the bowel preparation was adequate to good. Each colon segment was examined carefully as the colonoscope was slowly withdrawn from the cecum. Haustral folds appeared normal. In the sigmoid colon, mild patchy erythema was identified but not biopsied. This appearance is consistent with probable mild ischemia secondary to mild dehydration and affects of the bowel preparation. No polyps were identified. In the rectum, retroflexed exam demonstrated small internal hemorrhoids that were not actively bleeding. The colon was decompressed as the colonoscope was completely removed from the patient. There were no immediate complications. He was transferred to the Day Stay surgery area for postprocedure monitoring. RECOMMENDATIONS: 1. Resume previous diet and medications. 2. Given the small size of his colon polyp on previous colonoscopy, would recommend a return to average risk screening from here on. Repeat colonoscopy in 10 years. 3. Follow up with GI as needed. Job ID: [id number]
== END 2020-05-29 15:13 | disposition home or self-care (01) ==
LOC: SDC 11:30
PROVIDERS: ATTEND Internal Medicine Gastroenterology
PROC: 0DJD8ZZ Inspection of Lower Intestinal Tract, Via Natural or Artificial Opening Endoscopic (ICD-10-PCS; principal; 2020-05-29)
DX: K64.8 Other hemorrhoids (principal); Q43.8 Other specified congenital malformations of intestine; K62.4 Stenosis of anus and rectum; K59.00 Constipation, unspecified; R19.7 Diarrhea, unspecified; J44.9 Chronic obstructive pulmonary disease, unspecified; I11.0 Hypertensive heart disease with heart failure; I50.9 Heart failure, unspecified; I25.10 Atherosclerotic heart disease of native coronary artery without angina pectoris; E11.9 Type 2 diabetes mellitus without complications; K21.9 Gastro-esophageal reflux disease without esophagitis; N28.9 Disorder of kidney and ureter, unspecified; Z86.010 Personal history of colon polyps; Z86.16 Personal history of COVID-19; Z79.2 Long term (current) use of antibiotics; Z79.82 Long term (current) use of aspirin; Z79.899 Other long term (current) drug therapy; Z88.0 Allergy status to penicillin; Z88.5 Allergy status to narcotic agent; Z95.5 Presence of coronary angioplasty implant and graft; Z99.2 Dependence on renal dialysis; Z20.822 Contact with and (suspected) exposure to COVID-19
CPT/HCPCS: 45378; 82962; U0002; 36416; J2704; J3490

== ENCOUNTER 2020-08-27 05:11 | Inpatient (IN) | payer MEDICARE ==
[2020-08-27 06:08] LABS: #Lymphocytes 1.1 thou/uL (1.20-3.40); #Monocytes 0.6 thou/uL (0.11-0.59); #Neutrophils 8.3 thou/uL (1.40-6.50); %Basophils 0.1 % (0.0-1.0); %Eosinophils 0.4 % (0.0-10.0); %Lymphocytes 11.3 % (21.0-51.0); %Monocytes 6.4 % (0.0-10.0); %Neutrophils 81.9 % (42.0-75.0); Hemoglobin 12.9 g/dL (14.0-18.0); Mean Corpuscular HGB CONC 32.1 g/dL (32.0-36.0); Mean Corpuscular Hemoglobin 30.6 pg (27.0-31.0); Mean Corpuscular Volume 95.4 fL (78.0-98.0); Mean Platelet Volume 8.7 fL (7.4-10.4); Platelet Count 174 thou/uL (130-400); RBC Distribution Width 15.2 % (11.5-14.5); Red Blood Cell (RBC) Count 4.21 mill/uL (4.70-6.10); White Blood Cell (WBC) Count 10.1 thou/uL (4.8-10.8)
[2020-08-27 06:48] LABS: CKMB 1.6 ng/mL (0-6.6)
[2020-08-27 07:26] LABS: Albumin 3.7 g/dL (3.5-5.0)
[2020-08-27 07:28] LABS: Calcium 9.7 mg/dL (7.8-10.44); Chloride 99 mmol/L (98-107); Potassium 5.8 mmol/L (3.5-5.1); Sodium 136 mmol/L (136-145)
[2020-08-27 07:29] LABS: Globulin 3.7 g/dL (2.4-3.5); Glucose 163 mg/dL (70-105); Protein, Total 7.4 g/dL (6.0-8.3)
[2020-08-27 07:30] LABS: Anion Gap 21 mmol/L (10-20); Carbon Dioxide 22 mmol/L (22-29)
[2020-08-27 07:31] LABS: Bilirubin, Total 1.1 mg/dL (0.2-1.2)
[2020-08-27 07:32] LABS: Alkaline Phosphatase 56 U/L (40-110); Calc. Creatinine Clearance 0 mL/min (70-130)
[2020-08-27 07:33] LABS: BUN (Urea Nitrogen) 56 mg/dL (8.4-25.7)
[2020-08-27 07:34] LABS: AST (SGOT) 11 U/L (5-34)
[2020-08-27 07:35] LABS: ALT (SGPT) 8 U/L (8-55)
[2020-08-27] MEDS ORDERED: Acetaminophen 325 MG TAB PO PRN (08:49)
[2020-08-27] MEDS ORDERED: Ondansetron ODT 4 MG TAB PO PRN (08:49)
[2020-08-27] MEDS ORDERED: predniSONE 20 MG TAB PO SCH ×2 (09:00→11:00)
[2020-08-27] MEDS ORDERED: Dextrose 50% Abboject 50 ML SYRINGE SLOW IVP PRN (09:04)
[2020-08-27] MEDS ORDERED: HumaLOG 300 UNITS/3 ML VIAL SC PRN ×2 (09:04→21:33)
[2020-08-27] MEDS ORDERED: Dextrose 5% in Water 1,000 ML IV PRN (09:04)
[2020-08-27 09:38] LABS: Troponin I 0.255 ng/mL (< 0.028)
[2020-08-27 09:56] LABS: SARS-CoV-2 NAA Rapid Test Not Detected (NotDetected)
[2020-08-27 10:05] LABS: HBSAg Index 0.19 S/CO (0-0.99); Hep B Surf Ag Non-Reactive S/CO (NonReactive)
[2020-08-27] MEDS ORDERED: predniSONE 20 MG TAB ONE (10:35)
[2020-08-27] MEDS ORDERED: Heparin 10,000 UNITS/ 10 ML VIAL ONE ×2 (10:35→10:52)
[2020-08-27] MEDS ORDERED: Azithromycin 250 MG TAB ONE ×2 (10:35→10:37)
[2020-08-27] MEDS: Azithromycin 250 MG TAB PO SCH (10:45)
[2020-08-27 15:46] VITALS: BMI 30.3
[2020-08-27] MEDS: Heparin 5,000 UNITS/ML VIAL SC SCH ×3 (16:22→20:55)
[2020-08-27] MEDS ORDERED: Acetaminophen 325 MG TAB PO SCH (17:15)
[2020-08-27] MEDS ORDERED: Benzonatate 100 MG CAP PO SCH (17:15)
[2020-08-27] MEDS ORDERED: HYDROcodone/Acetaminophen 10/325 mg Tablet PO PRN (17:50)
[2020-08-27] MEDS ORDERED: Metoclopramide HCl 10 MG TAB PO PRN (18:00)
[2020-08-27] MEDS ORDERED: Midodrine HCl 5 MG TAB PO PRN (18:00)
[2020-08-27] MEDS: Acetaminophen 325 MG TAB PO SCH ×2 (18:48→23:49)
[2020-08-27] MEDS: Mometasone 200 MCG/Formoterol 5 MCG 120 PUFF INHALER INH SCH (19:04)
[2020-08-27] MEDS ORDERED: Lidocaine 2% Viscous Solution 10 ML, Aluminum & Magnesium Hydroxide 30 ML SSW SCH (20:30)
[2020-08-27] MEDS: Benzonatate 100 MG CAP PO SCH (20:55)
[2020-08-27] MEDS: Atorvastatin Calcium 40 MG TAB PO SCH (20:55)
[2020-08-27] MEDS ORDERED: Non-Formulary Item 1 EACH (Glycopyrrolate/Formoterol Fum [Bevespi Aerosphere Inhaler] 10. IH SCH (21:00)
[2020-08-27 21:12] LABS: Critical Call Chem Troponin I RESULT DECREASING; Troponin I 0.337 ng/mL (< 0.028)
[2020-08-28] MEDS ORDERED: Cepastat Lozenges 1 LOZ PO PRN (02:19)
[2020-08-28] MEDS ORDERED: Dextromethorphan Polistirex 30 MG/5 ML (89 ML BOTTLE) PO PRN (02:19)
[2020-08-28 04:45] LABS: Actual Bicarbonate (HCO3a) 23.1 mEq/L (22-28); CO2 Tension 36.4 mmHg (35.0-45.0); Calcium, Ionized (arterial) 1.15 mmol/L (1.12-1.30); O2 Tension (PaO2), arterial 96.3 mmHg (80.0-100.0); Potassium - ABG Lab 4.89 mmol/L (3.70-5.30); pH, Arterial 7.42 (7.35-7.45)
[2020-08-28 04:50] LABS: Puncture Site RBA
[2020-08-28 06:55] LABS: #Lymphocytes 1.2 thou/uL (1.20-3.40); #Monocytes 0.7 thou/uL (0.11-0.59); #Neutrophils 6.2 thou/uL (1.40-6.50); %Basophils 0.4 % (0.0-1.0); %Eosinophils 0.3 % (0.0-10.0); %Lymphocytes 15.1 % (21.0-51.0); %Monocytes 8.7 % (0.0-10.0); %Neutrophils 75.5 % (42.0-75.0); Hemoglobin 11.8 g/dL (14.0-18.0); Mean Corpuscular HGB CONC 31.8 g/dL (32.0-36.0); Mean Corpuscular Hemoglobin 30.3 pg (27.0-31.0); Mean Corpuscular Volume 95.4 fL (78.0-98.0); Mean Platelet Volume 8.2 fL (7.4-10.4); Platelet Count 167 thou/uL (130-400); RBC Distribution Width 15.1 % (11.5-14.5); Red Blood Cell (RBC) Count 3.91 mill/uL (4.70-6.10); White Blood Cell (WBC) Count 8.2 thou/uL (4.8-10.8)
[2020-08-28 07:11] LABS: Anion Gap 17 mmol/L (10-20); BUN (Urea Nitrogen) 43 mg/dL (8.4-25.7); Calc. Creatinine Clearance 10 mL/min (70-130); Calcium 9.8 mg/dL (7.8-10.44); Carbon Dioxide 28 mmol/L (22-29); Chloride 96 mmol/L (98-107); Glucose 177 mg/dL (70-105); Potassium 5.2 mmol/L (3.5-5.1); Sodium 136 mmol/L (136-145)
[2020-08-28] MEDS: Mometasone 200 MCG/Formoterol 5 MCG 120 PUFF INHALER INH SCH ×2 (07:51→19:13)
[2020-08-28] MEDS ORDERED: HumaLOG 300 UNITS/3 ML VIAL SC PRN (08:50)
[2020-08-28] MEDS: Carvedilol 3.125 MG TAB PO SCH ×2 (09:53→16:16)
[2020-08-28] MEDS: Acetaminophen 325 MG TAB PO SCH ×3 (09:53→18:12)
[2020-08-28] MEDS: Aspirin 81 mg Enteric Coated Tablet PO SCH (09:54)
[2020-08-28] MEDS: predniSONE 20 MG TAB PO SCH (09:54)
[2020-08-28] MEDS: Azithromycin 250 MG TAB PO SCH (09:54)
[2020-08-28] MEDS: Folic Acid/Vit B Comp W-C PO SCH (09:54)
[2020-08-28] MEDS: Benzonatate 100 MG CAP PO SCH ×3 (09:54→21:33)
[2020-08-28] MEDS: Heparin 5,000 UNITS/ML VIAL SC SCH ×3 (09:55→21:33)
[2020-08-28] MEDS: Sevelamer Carbonate 800 MG TAB PO SCH ×3 (09:55→16:16)
[2020-08-28] MEDS: Prasugrel 10 MG TAB PO SCH (09:55)
[2020-08-28] MEDS: HumaLOG 300 UNITS/3 ML VIAL SC PRN ×2 (11:50→17:09)
[2020-08-28] MEDS: Atorvastatin Calcium 40 MG TAB PO SCH (21:33)
[2020-08-29] MEDS: Acetaminophen 325 MG TAB PO SCH ×3 (00:13→14:55)
[2020-08-29 00:26] VITALS: BP 113/74
[2020-08-29] MEDS: Mometasone 200 MCG/Formoterol 5 MCG 120 PUFF INHALER INH SCH (08:11)
[2020-08-29] MEDS: Folic Acid/Vit B Comp W-C PO SCH (09:33)
[2020-08-29] MEDS: Azithromycin 250 MG TAB PO SCH (09:33)
[2020-08-29] MEDS: Sevelamer Carbonate 800 MG TAB PO SCH ×2 (09:33→14:56)
[2020-08-29] MEDS: Prasugrel 10 MG TAB PO SCH (09:33)
[2020-08-29] MEDS: Carvedilol 3.125 MG TAB PO SCH (09:33)
[2020-08-29] MEDS: Aspirin 81 mg Enteric Coated Tablet PO SCH (09:33)
[2020-08-29] MEDS: Benzonatate 100 MG CAP PO SCH ×2 (09:34→15:01)
[2020-08-29] MEDS: predniSONE 20 MG TAB PO SCH (09:34)
[2020-08-29] MEDS: Heparin 5,000 UNITS/ML VIAL SC SCH ×2 (09:34→15:01)
[2020-08-29 12:45] VITALS: TEMP 97.2
== END 2020-08-29 16:06 | disposition home or self-care (01) | DRG 189 ==
LOC: ERS 05:11 → 2SW 08:31 → ERHOLD 08:31 → 2SW 15:36 → IMCU/EMU 08-28 05:02 → OBSVTOIN 08-28 15:58
PROVIDERS: ADMIT Family Medicine; ATTEND Family Medicine
PROC: 5A09357 Assistance with Respiratory Ventilation, Less than 24 Consecutive Hours, Continuous Positive Airway Pressure (ICD-10-PCS; principal; 2020-08-28)
PROC: 5A1D70Z Performance of Urinary Filtration, Intermittent, Less than 6 Hours Per Day (ICD-10-PCS; 2020-08-28)
DX: J96.21 Acute and chronic respiratory failure with hypoxia (principal); N18.6 End stage renal disease; I21.4 Non-ST elevation (NSTEMI) myocardial infarction; I13.2 Hypertensive heart and chronic kidney disease with heart failure and with stage 5 chronic kidney disease, or end stage renal disease; J44.1 Chronic obstructive pulmonary disease with (acute) exacerbation; I42.9 Cardiomyopathy, unspecified; I50.22 Chronic systolic (congestive) heart failure; E87.70 Fluid overload, unspecified; Z20.822 Contact with and (suspected) exposure to COVID-19; E11.22 Type 2 diabetes mellitus with diabetic chronic kidney disease; E87.5 Hyperkalemia; I25.10 Atherosclerotic heart disease of native coronary artery without angina pectoris; Z99.2 Dependence on renal dialysis; I25.2 Old myocardial infarction; Z88.0 Allergy status to penicillin; Z88.5 Allergy status to narcotic agent; Z79.82 Long term (current) use of aspirin; Z79.899 Other long term (current) drug therapy; Z79.4 Long term (current) use of insulin; Z79.51 Long term (current) use of inhaled steroids; Z95.810 Presence of automatic (implantable) cardiac defibrillator
CPT/HCPCS: 0240U; 36415; 36416; 36600; 71045; 80048; 80053; 82553; 82805; 83880; 84145; 84484; 85025; 87340; 93005; 96372; G0378; J1644; J1815; J7512; J7620

== ENCOUNTER 2020-11-03 14:02 | Inpatient (IN) | payer MEDICARE ==
[2020-11-03 15:03] LABS: #Eosinphils 0.1 thou/uL (0.0-0.7); #Lymphocytes 1.2 thou/uL (1.20-3.40); #Monocytes 1.4 thou/uL (0.11-0.59); #Neutrophils 10.9 thou/uL (1.40-6.50); %Basophils 0.1 % (0.0-1.0); %Eosinophils 0.9 % (0.0-10.0); %Lymphocytes 8.8 % (21.0-51.0); %Monocytes 10.3 % (0.0-10.0); %Neutrophils 79.9 % (42.0-75.0); Hemoglobin 9.4 g/dL (14.0-18.0); Mean Corpuscular HGB CONC 31.9 g/dL (32.0-36.0); Mean Corpuscular Hemoglobin 29.6 pg (27.0-31.0); Mean Corpuscular Volume 92.9 fL (78.0-98.0); Mean Platelet Volume 7.8 fL (7.4-10.4); Platelet Count 218 thou/uL (130-400); RBC Distribution Width 16.5 % (11.5-14.5); Red Blood Cell (RBC) Count 3.18 mill/uL (4.70-6.10); White Blood Cell (WBC) Count 13.6 thou/uL (4.8-10.8)
[2020-11-03 15:29] LABS: ALT (SGPT) 10 U/L (8-55); AST (SGOT) 31 U/L (5-34); Albumin 3.3 g/dL (3.5-5.0); Alkaline Phosphatase 48 U/L (40-110); Anion Gap 16 mmol/L (10-20); BUN (Urea Nitrogen) 55 mg/dL (8.4-25.7); Bilirubin, Total 0.7 mg/dL (0.2-1.2); Calc. Creatinine Clearance 0 mL/min (70-130); Calcium 9.2 mg/dL (7.8-10.44); Carbon Dioxide 29 mmol/L (22-29); Chloride 96 mmol/L (98-107); Globulin 3.9 g/dL (2.4-3.5); Glucose 279 mg/dL (70-105); Potassium 5.3 mmol/L (3.5-5.1); Protein, Total 7.2 g/dL (6.0-8.3); Sodium 136 mmol/L (136-145)
[2020-11-03 15:44] LABS: CKMB 0.9 ng/mL (0-6.6)
[2020-11-03] MEDS ORDERED: Aspirin Chewable 81 MG TAB ONE (17:03)
[2020-11-03] MEDS ORDERED: Vancomycin 1 GM in Premix Bag 1 BAG IVPB SCH ×2 (17:23→19:45)
[2020-11-03] MEDS ORDERED: Metoclopramide HCl 10 MG TAB PO PRN (17:28)
[2020-11-03] MEDS ORDERED: Aspirin 81 mg Enteric Coated Tablet PO SCH (17:45)
[2020-11-03] MEDS: Mometasone 200 MCG/Formoterol 5 MCG 120 PUFF INHALER INH SCH (19:04)
[2020-11-03] MEDS ORDERED: MEROPENEM 1 GM/50 ML 1 GM in Premix Bag 1 BAG IVPB SCH (19:30)
[2020-11-03] MEDS ORDERED: Vancomycin HCl 750 MG in Sodium Chloride 0.9% 250 ML 250 ML IVPB SCH (19:45)
[2020-11-03] MEDS ORDERED: HOLD VANCOMYCIN FOR LEVEL >20 FS SCH (19:45)
[2020-11-03] MEDS ORDERED: Vancomycin HCl 500 MG in Sodium Chloride 0.9% 100 ML IVPB SCH (19:45)
[2020-11-03] MEDS ORDERED: Vancomycin HCl 1.25 GM in Sodium Chloride 0.9% 250 ML 250 ML IVPB SCH (19:45)
[2020-11-03 20:34] LABS: Troponin I 0.166 ng/mL (< 0.028)
[2020-11-03 20:47] LABS: SARS-CoV-2 NAA Rapid Test Not Detected (NotDetected)
[2020-11-03] MEDS ORDERED: VANCOMYCIN 1.75 GM/350 ML BAG 1.75 GM in Premix Bag 1 BAG IVPB SCH (22:00)
[2020-11-03] MEDS ORDERED: HYDROmorphone 2 MG TAB PO PRN (22:24)
[2020-11-03] MEDS: Midodrine HCl 5 MG TAB PO PRN (23:27)
[2020-11-03 23:40] LABS: Troponin I 0.186 ng/mL (< 0.028)
[2020-11-04] MEDS ORDERED: Sodium Chloride 0.9% 250 ML IV SCH ×2 (00:45→02:00)
[2020-11-04] MEDS ORDERED: Sodium Chloride 0.9% 250 ML IVPB PRN (03:43)
[2020-11-04] MEDS: Midodrine HCl 5 MG TAB PO PRN ×2 (06:32→12:56)
[2020-11-04] MEDS: Mometasone 200 MCG/Formoterol 5 MCG 120 PUFF INHALER INH SCH ×2 (07:40→19:13)
[2020-11-04] MEDS ORDERED: Fentanyl 100 MCG/2 ML VIAL ONE (07:56)
[2020-11-04] MEDS ORDERED: Ketamine 50 MG/ML (10ML VIAL) ONE (07:57)
[2020-11-04] MEDS ORDERED: Midazolam HCl 2 mg/2 ml Vial ONE (07:59)
[2020-11-04] MEDS ORDERED: Lidocaine 1% PF 5 ML VIAL ONE (08:03)
[2020-11-04] MEDS ORDERED: Ondansetron PF 4 MG/2 ML Vial ONE (08:03)
[2020-11-04] MEDS ORDERED: Glycopyrrolate 0.2 MG/ML 5 ML SYRINGE ONE (08:03)
[2020-11-04] MEDS ORDERED: PROPOFOL 200 MG/20 ML VIAL ONE (08:03)
[2020-11-04] MEDS ORDERED: PHENYLEPHRINE-NS 100 MCG/ML 10 ML SYRINGE ONE (08:03)
[2020-11-04] MEDS ORDERED: Lidocaine 2% PF 5 ML VIAL ONE ×2 (08:11→08:24)
[2020-11-04] MEDS ORDERED: Lidocaine 1% w/Epinephrine 1:100K 20 ML VIAL ONE (08:11)
[2020-11-04] MEDS ORDERED: Bupivacaine 0.25% HCL 30 ML VIAL ONE (08:11)
[2020-11-04] MEDS ORDERED: Ketorolac Tromethamine 30 MG/ML VIAL IVP PRN (09:08)
[2020-11-04] MEDS ORDERED: Promethazine HCl 25 MG/ML VIAL IM PRN (09:08)
[2020-11-04] MEDS ORDERED: Fentanyl 100 MCG/2 ML VIAL SLOW IVP PRN (09:13)
[2020-11-04] MEDS ORDERED: HYDROcodone/Acetaminophen 5/325 mg Tablet PO PRN (09:13)
[2020-11-04] MEDS: Sevelamer Carbonate 800 MG TAB PO SCH ×3 (10:20→17:10)
[2020-11-04 10:30] LABS: Mean Corpuscular HGB CONC 31.2 g/dL (32.0-36.0); Mean Corpuscular Hemoglobin 29.2 pg (27.0-31.0); Mean Corpuscular Volume 93.6 fL (78.0-98.0); Mean Platelet Volume 7.7 fL (7.4-10.4); Platelet Count 215 thou/uL (130-400); RBC Distribution Width 16.4 % (11.5-14.5); Red Blood Cell (RBC) Count 3.08 mill/uL (4.70-6.10); White Blood Cell (WBC) Count 14.5 thou/uL (4.8-10.8)
[2020-11-04 10:51] LABS: Albumin 3.2 g/dL (3.5-5.0); Anion Gap 17 mmol/L (10-20); BUN (Urea Nitrogen) 36 mg/dL (8.4-25.7); BUN/Creatinine Ratio 4.43; Calc. Creatinine Clearance 12 mL/min (70-130); Carbon Dioxide 26 mmol/L (22-29); Chloride 98 mmol/L (98-107); Glucose 194 mg/dL (70-105); Phosphorus 4.8 mg/dL (2.3-4.7); Potassium 4.2 mmol/L (3.5-5.1); Sodium 137 mmol/L (136-145)
[2020-11-04] MEDS: Aspirin 81 mg Enteric Coated Tablet PO SCH (12:56)
[2020-11-04] MEDS: Midodrine HCl 5 MG TAB PO SCH ×2 (15:32→20:39)
[2020-11-04] MEDS ORDERED: Guaifenesin DM 100-10/5 ML UDCUP PO PRN (15:52)
[2020-11-04] MEDS ORDERED: HumaLOG 300 UNITS/3 ML VIAL SC PRN (19:45)
[2020-11-04] MEDS ORDERED: Dextrose 5% in Water 1,000 ML IV PRN (19:45)
[2020-11-04] MEDS ORDERED: Dextrose 50% Abboject 50 ML SYRINGE IVP PRN (19:45)
[2020-11-04] MEDS: Meropenem 500 MG in Sodium Chloride 0.9% 100 ML IVPB SCH (20:38)
[2020-11-04] MEDS: guaiFENesin ER 600 MG TAB PO SCH (20:38)
[2020-11-04] MEDS: HYDROcodone/Acetaminophen 5/325 mg Tablet PO PRN (20:38)
[2020-11-04] MEDS: Senokot S 8.6-50 MG TAB PO SCH (20:39)
[2020-11-04] MEDS: Benzonatate 100 MG CAP PO SCH (20:39)
[2020-11-04] MEDS: Atorvastatin Calcium 40 MG TAB PO SCH (20:39)
[2020-11-04 21:52] LABS: Vancomycin, Random 24.9 ug/mL (See Comment)
[2020-11-05 03:44] LABS: Hemoglobin 8.8 g/dL (14.0-18.0); Mean Corpuscular HGB CONC 31.7 g/dL (32.0-36.0); Mean Corpuscular Hemoglobin 29.8 pg (27.0-31.0); Mean Corpuscular Volume 94.1 fL (78.0-98.0); Mean Platelet Volume 8.1 fL (7.4-10.4); Platelet Count 205 thou/uL (130-400); RBC Distribution Width 16.3 % (11.5-14.5); Red Blood Cell (RBC) Count 2.95 mill/uL (4.70-6.10)
[2020-11-05 07:18] LABS: Iron 20 ug/dL (65-175); Iron Binding Capacity, Total 114 mcg/dL (261-462)
[2020-11-05 07:31] LABS: Anion Gap 17 mmol/L (10-20); BUN (Urea Nitrogen) 44 mg/dL (8.4-25.7); BUN/Creatinine Ratio 4.38; Calc. Creatinine Clearance 10 mL/min (70-130); Carbon Dioxide 27 mmol/L (22-29); Chloride 95 mmol/L (98-107); Glucose 159 mg/dL (70-105); Potassium 4.1 mmol/L (3.5-5.1); Sodium 135 mmol/L (136-145)
[2020-11-05] MEDS: Mometasone 200 MCG/Formoterol 5 MCG 120 PUFF INHALER INH SCH ×2 (08:03→19:21)
[2020-11-05] MEDS: Sevelamer Carbonate 800 MG TAB PO SCH ×3 (08:57→17:33)
[2020-11-05] MEDS: Senokot S 8.6-50 MG TAB PO SCH ×2 (08:57→20:52)
[2020-11-05] MEDS: guaiFENesin ER 600 MG TAB PO SCH ×2 (08:57→20:52)
[2020-11-05] MEDS: Aspirin 81 mg Enteric Coated Tablet PO SCH (08:57)
[2020-11-05] MEDS: Midodrine HCl 5 MG TAB PO SCH ×3 (08:57→20:52)
[2020-11-05] MEDS: HYDROcodone/Acetaminophen 5/325 mg Tablet PO PRN ×2 (08:57→20:53)
[2020-11-05] MEDS: Clopidogrel Bisulfate 75 MG TAB PO SCH (08:57)
[2020-11-05] MEDS: Benzonatate 100 MG CAP PO SCH ×3 (08:57→20:53)
[2020-11-05] MEDS ORDERED: Epoetin (ESRD) 20,000 UNITS/ML SC SCH (09:00)
[2020-11-05 09:50] LABS: Vancomycin, Random 24.4 ug/mL (See Comment)
[2020-11-05] MEDS: EPOETIN ALFA-EPBX (ESRD) 3,000 UNIT/ML VIAL SC SCH (13:08)
[2020-11-05] MEDS: EPOETIN ALFA-EPBX (ESRD) 2,000 UNIT/ML VIAL SC SCH (13:08)
[2020-11-05] MEDS ORDERED: Vancomycin HCl 750 MG in Sodium Chloride 0.9% 250 ML 250 ML IVPB SCH (13:15)
[2020-11-05] MEDS ORDERED: Vancomycin HCl 500 MG in Sodium Chloride 0.9% 100 ML IVPB SCH (13:15)
[2020-11-05] MEDS ORDERED: Vancomycin HCl 250 MG in Sodium Chloride 0.9% 100 ML IVPB SCH (13:15)
[2020-11-05] MEDS ORDERED: Vancomycin 1 GM in Premix Bag 1 BAG IVPB SCH (13:15)
[2020-11-05] MEDS ORDERED: Midodrine HCl 5 MG TAB PO SCH (14:00)
[2020-11-05] MEDS: Meropenem 500 MG in Sodium Chloride 0.9% 100 ML IVPB SCH (20:51)
[2020-11-05] MEDS: Atorvastatin Calcium 40 MG TAB PO SCH (20:52)
[2020-11-06] MEDS: HYDROcodone/Acetaminophen 5/325 mg Tablet PO PRN ×4 (02:34→20:35)
[2020-11-06] MEDS: Mometasone 200 MCG/Formoterol 5 MCG 120 PUFF INHALER INH SCH ×2 (07:07→19:28)
[2020-11-06] MEDS: Midodrine HCl 5 MG TAB PO SCH ×3 (07:47→20:35)
[2020-11-06] MEDS: Senokot S 8.6-50 MG TAB PO SCH ×2 (08:34→20:34)
[2020-11-06] MEDS: guaiFENesin ER 600 MG TAB PO SCH ×2 (08:34→20:35)
[2020-11-06] MEDS: Sevelamer Carbonate 800 MG TAB PO SCH ×3 (08:34→17:13)
[2020-11-06] MEDS: Benzonatate 100 MG CAP PO SCH ×3 (08:34→20:34)
[2020-11-06] MEDS: Clopidogrel Bisulfate 75 MG TAB PO SCH (08:34)
[2020-11-06] MEDS: Aspirin 81 mg Enteric Coated Tablet PO SCH (08:35)
[2020-11-06] MEDS ORDERED: Midodrine HCl 5 MG TAB PO SCH (15:00)
[2020-11-06] MEDS: Atorvastatin Calcium 40 MG TAB PO SCH (20:34)
[2020-11-06] MEDS: Ondansetron ODT 8 MG TAB SL PRN (20:42)
[2020-11-07] MEDS: Mometasone 200 MCG/Formoterol 5 MCG 120 PUFF INHALER INH SCH ×2 (07:38→19:30)
[2020-11-07] MEDS: HYDROcodone/Acetaminophen 5/325 mg Tablet PO PRN ×3 (08:27→21:03)
[2020-11-07] MEDS: Midodrine HCl 5 MG TAB PO SCH ×3 (08:28→20:59)
[2020-11-07] MEDS: Clopidogrel Bisulfate 75 MG TAB PO SCH (08:29)
[2020-11-07] MEDS: Benzonatate 100 MG CAP PO SCH ×3 (08:29→20:59)
[2020-11-07] MEDS: guaiFENesin ER 600 MG TAB PO SCH ×2 (08:29→20:59)
[2020-11-07] MEDS: Senokot S 8.6-50 MG TAB PO SCH ×2 (08:29→20:59)
[2020-11-07] MEDS: Aspirin 81 mg Enteric Coated Tablet PO SCH (08:29)
[2020-11-07] MEDS: Sevelamer Carbonate 800 MG TAB PO SCH ×4 (08:29→18:43)
[2020-11-07] MEDS ORDERED: Vancomycin HCl 1 GM in Sodium Chloride 0.9% 250 ML 250 ML IVPB SCH (14:15)
[2020-11-07] MEDS ORDERED: HOLD VANCOMYCIN FOR LEVEL >20 FS SCH (14:45)
[2020-11-07] MEDS ORDERED: Vancomycin HCl 1.25 GM in Sodium Chloride 0.9% 250 ML 250 ML IVPB SCH (14:45)
[2020-11-07] MEDS ORDERED: Vancomycin HCl 500 MG in Sodium Chloride 0.9% 100 ML IVPB SCH ×3 (14:45→22:00)
[2020-11-07] MEDS ORDERED: Vancomycin HCl 750 MG in Sodium Chloride 0.9% 250 ML 250 ML IVPB SCH ×2 (14:45→15:00)
[2020-11-07] MEDS ORDERED: Vancomycin 1 GM in Premix Bag 1 BAG IVPB SCH ×2 (14:45→15:00)
[2020-11-07] MEDS ORDERED: Vancomycin HCl 250 MG in Sodium Chloride 0.9% 100 ML IVPB SCH (15:00)
[2020-11-07] MEDS: Sulfameth/Trimethoprim SS 400-80MG TAB PO SCH ×3 (15:39→16:29)
[2020-11-07] MEDS: EPOETIN ALFA-EPBX (ESRD) 3,000 UNIT/ML VIAL SC SCH (15:44)
[2020-11-07] MEDS: EPOETIN ALFA-EPBX (ESRD) 2,000 UNIT/ML VIAL SC SCH (15:47)
[2020-11-07 16:04] LABS: Vancomycin, Random 12.8 ug/mL (See Comment)
[2020-11-07] MEDS: Atorvastatin Calcium 40 MG TAB PO SCH (20:59)
[2020-11-08] MEDS: HYDROcodone/Acetaminophen 5/325 mg Tablet PO PRN ×2 (05:34→09:11)
[2020-11-08] MEDS: Mometasone 200 MCG/Formoterol 5 MCG 120 PUFF INHALER INH SCH ×2 (07:35→18:50)
[2020-11-08] MEDS ORDERED: Ferrous Sulfate 325 MG TAB PO SCH (08:00)
[2020-11-08] MEDS: Senokot S 8.6-50 MG TAB PO SCH (09:11)
[2020-11-08] MEDS: Aspirin 81 mg Enteric Coated Tablet PO SCH (09:12)
[2020-11-08] MEDS: Sevelamer Carbonate 800 MG TAB PO SCH ×3 (09:12→15:52)
[2020-11-08] MEDS: guaiFENesin ER 600 MG TAB PO SCH (09:12)
[2020-11-08] MEDS: Benzonatate 100 MG CAP PO SCH ×2 (09:12→15:52)
[2020-11-08] MEDS: Midodrine HCl 5 MG TAB PO SCH ×2 (09:12→15:51)
[2020-11-08] MEDS: Clopidogrel Bisulfate 75 MG TAB PO SCH (09:12)
[2020-11-08 09:27] LABS: Vancomycin, Random 18.9 ug/mL (See Comment)
[2020-11-08 11:05] VITALS: BMI 29.2
[2020-11-08] MEDS: Ondansetron ODT 8 MG TAB SL PRN (13:38)
[2020-11-08] MEDS: Sulfameth/Trimethoprim SS 400-80MG TAB PO SCH (15:52)
[2020-11-08 19:31] VITALS: BP 84/50; TEMP 98.7
== END 2020-11-08 20:38 | DRG 239 ==
LOC: ERS 14:02 → IMCU/EMU 16:46 → 2NO 11-06 02:55
PROVIDERS: ADMIT Internal Medicine; ATTEND Internal Medicine
PROC: 5A09357 Assistance with Respiratory Ventilation, Less than 24 Consecutive Hours, Continuous Positive Airway Pressure (ICD-10-PCS; 2020-11-03)
PROC: 0Y6N0ZF Detachment at Left Foot, Partial 5th Ray, Open Approach (ICD-10-PCS; principal; 2020-11-04)
DX: E11.52 Type 2 diabetes mellitus with diabetic peripheral angiopathy with gangrene (principal); J96.01 Acute respiratory failure with hypoxia; N18.6 End stage renal disease; I13.2 Hypertensive heart and chronic kidney disease with heart failure and with stage 5 chronic kidney disease, or end stage renal disease; I50.42 Chronic combined systolic (congestive) and diastolic (congestive) heart failure; Z20.822 Contact with and (suspected) exposure to COVID-19; E11.621 Type 2 diabetes mellitus with foot ulcer; E11.22 Type 2 diabetes mellitus with diabetic chronic kidney disease; J45.909 Unspecified asthma, uncomplicated; I95.9 Hypotension, unspecified; J44.9 Chronic obstructive pulmonary disease, unspecified; K21.9 Gastro-esophageal reflux disease without esophagitis; G47.33 Obstructive sleep apnea (adult) (pediatric); E87.5 Hyperkalemia; D63.1 Anemia in chronic kidney disease; I48.0 Paroxysmal atrial fibrillation; L97.529 Non-pressure chronic ulcer of other part of left foot with unspecified severity; B95.2 Enterococcus as the cause of diseases classified elsewhere; B95.5 Unspecified streptococcus as the cause of diseases classified elsewhere; B96.89 Other specified bacterial agents as the cause of diseases classified elsewhere; Z99.2 Dependence on renal dialysis; Z95.5 Presence of coronary angioplasty implant and graft; Z89.411 Acquired absence of right great toe; Z89.421 Acquired absence of other right toe(s); Z87.891 Personal history of nicotine dependence; Z88.5 Allergy status to narcotic agent; Z88.0 Allergy status to penicillin; Z91.19 Patient's noncompliance with other medical treatment and regimen; Z79.82 Long term (current) use of aspirin; Z79.4 Long term (current) use of insulin; Z79.51 Long term (current) use of inhaled steroids; Z79.899 Other long term (current) drug therapy; Z80.1 Family history of malignant neoplasm of trachea, bronchus and lung; Z99.81 Dependence on supplemental oxygen; Z95.1 Presence of aortocoronary bypass graft
CPT/HCPCS: 36415; 36416; 71045; 80053; 80069; 80202; 82553; 82728; 83540; 83550; 83880; 84484; 85025; 85027; 87070; 87077; 87186; 87205; 88305; 90935; 93005; 93306; 94640; 94660; 94664; G0257; J2001; J2185; J2250; J2405; J2704; J3010; J3370; J3490; J7030; J7620; Q0162; Q5105; S0020; U0002; U0005

== ENCOUNTER 2020-12-17 16:57 | Observation (INO) | payer MEDICARE ==
[~2020-12-17 16:57] MED LIST changes: +Iopamidol-370 76% 500 ML 1 ML ONE; -Lidocaine 1% PF 5 ML VIAL ONE; -PROPOFOL 200 MG/20 ML VIAL ONE; -ePHEDrine 50 MG/ML VIAL ONE
[2020-12-17 17:40] LABS: #Eosinphils 0.2 thou/uL (0.0-0.7); #Lymphocytes 1.1 thou/uL (1.20-3.40); #Monocytes 0.5 thou/uL (0.11-0.59); #Neutrophils 5.1 thou/uL (1.40-6.50); %Basophils 0.2 % (0.0-1.0); %Eosinophils 3.3 % (0.0-10.0); %Lymphocytes 15.8 % (21.0-51.0); %Monocytes 7.6 % (0.0-10.0); %Neutrophils 73.1 % (42.0-75.0); Hemoglobin 9.1 g/dL (14.0-18.0); Mean Corpuscular HGB CONC 30.9 g/dL (32.0-36.0); Mean Corpuscular Volume 93.7 fL (78.0-98.0); Mean Platelet Volume 7.4 fL (7.4-10.4); Platelet Count 229 thou/uL (130-400); RBC Distribution Width 17.8 % (11.5-14.5); Red Blood Cell (RBC) Count 3.13 mill/uL (4.70-6.10)
[2020-12-17 18:09] LABS: ALT (SGPT) 8 U/L (8-55); AST (SGOT) 12 U/L (5-34); Albumin 3.6 g/dL (3.5-5.0); Alkaline Phosphatase 51 U/L (40-110); Anion Gap 17 mmol/L (10-20); BUN (Urea Nitrogen) 23 mg/dL (8.4-25.7); Bilirubin, Total 1.1 mg/dL (0.2-1.2); Calc. Creatinine Clearance 0 mL/min (70-130); Calcium 9.3 mg/dL (7.8-10.44); Carbon Dioxide 25 mmol/L (22-29); Chloride 99 mmol/L (98-107); Globulin 3.6 g/dL (2.4-3.5); Glucose 115 mg/dL (70-105); Potassium 3.4 mmol/L (3.5-5.1); Protein, Total 7.2 g/dL (6.0-8.3); Sodium 138 mmol/L (136-145)
[2020-12-17 18:30] LABS: CKMB 1.1 ng/mL (0-6.6)
[2020-12-17 22:24] LABS: Troponin I 0.064 ng/mL (< 0.028)
[2020-12-17] MEDS ORDERED: Midodrine HCl 5 MG TAB PO SCH (23:45)
[2020-12-18 02:11] LABS: Troponin I 0.065 ng/mL (< 0.028)
[2020-12-18 04:18] VITALS: BMI 30.5
[2020-12-18] MEDS ORDERED: Sodium Chloride 0.9% 250 ML IVPB SCH (04:45)
[2020-12-18] MEDS ORDERED: Dextrose 5% in Water 1,000 ML IV PRN (04:50)
[2020-12-18] MEDS ORDERED: Dextrose 50% Abboject 50 ML SYRINGE SLOW IVP PRN (04:50)
[2020-12-18] MEDS ORDERED: Ondansetron PF 4 MG/2 ML Vial IVP PRN (04:50)
[2020-12-18] MEDS ORDERED: Acetaminophen 325 MG TAB PO PRN (04:50)
[2020-12-18] MEDS ORDERED: Ondansetron ODT 4 MG TAB PO PRN (04:50)
[2020-12-18] MEDS ORDERED: HumaLOG 300 UNITS/3 ML VIAL SC PRN ×2 (04:50)
[2020-12-18] MEDS ORDERED: Acetaminophen 650 MG Suppository PR PRN (04:50)
[2020-12-18 06:11] LABS: #Eosinphils 0.2 thou/uL (0.0-0.7); #Lymphocytes 1.4 thou/uL (1.20-3.40); #Monocytes 0.6 thou/uL (0.11-0.59); #Neutrophils 4.3 thou/uL (1.40-6.50); %Basophils 0.7 % (0.0-1.0); %Eosinophils 2.9 % (0.0-10.0); %Lymphocytes 20.8 % (21.0-51.0); %Monocytes 9.5 % (0.0-10.0); Hemoglobin 7.8 g/dL (14.0-18.0); Mean Corpuscular HGB CONC 30.4 g/dL (32.0-36.0); Mean Corpuscular Hemoglobin 28.7 pg (27.0-31.0); Mean Corpuscular Volume 94.6 fL (78.0-98.0); Mean Platelet Volume 7.2 fL (7.4-10.4); Platelet Count 238 thou/uL (130-400); RBC Distribution Width 17.4 % (11.5-14.5); Red Blood Cell (RBC) Count 2.71 mill/uL (4.70-6.10); White Blood Cell (WBC) Count 6.6 thou/uL (4.8-10.8)
[2020-12-18 06:32] LABS: Anion Gap 15 mmol/L (10-20); BUN (Urea Nitrogen) 29 mg/dL (8.4-25.7); Calc. Creatinine Clearance 12 mL/min (70-130); Calcium 9.5 mg/dL (7.8-10.44); Carbon Dioxide 29 mmol/L (22-29); Chloride 100 mmol/L (98-107); Glucose 105 mg/dL (70-105); Potassium 3.5 mmol/L (3.5-5.1); Sodium 140 mmol/L (136-145)
[2020-12-18] MEDS: Heparin 5,000 UNITS/ML VIAL SC SCH ×2 (09:20→15:11)
[2020-12-18] MEDS: Midodrine HCl 5 MG TAB PO SCH ×2 (09:21→11:42)
[2020-12-18 11:01] VITALS: TEMP 98.4
[2020-12-18 15:17] VITALS: BP 104/56
[2020-12-18 15:28] LABS: SARS-CoV-2 PCR by NAA Not Detected (NotDetected)
== END 2020-12-18 17:23 | disposition home or self-care (01) ==
LOC: ERS 16:57 → 2NO 21:16
PROVIDERS: ADMIT Student in an Organized Health Care Education/Training Program; ATTEND Internal Medicine
DX: I95.1 Orthostatic hypotension (principal); I12.0 Hypertensive chronic kidney disease with stage 5 chronic kidney disease or end stage renal disease; E11.22 Type 2 diabetes mellitus with diabetic chronic kidney disease; N18.6 End stage renal disease; J44.9 Chronic obstructive pulmonary disease, unspecified; E87.6 Hypokalemia; Z20.822 Contact with and (suspected) exposure to COVID-19; Z79.02 Long term (current) use of antithrombotics/antiplatelets; Z79.4 Long term (current) use of insulin; Z79.899 Other long term (current) drug therapy; Z95.5 Presence of coronary angioplasty implant and graft; Z99.2 Dependence on renal dialysis; Z88.0 Allergy status to penicillin; Z88.5 Allergy status to narcotic agent; Z89.411 Acquired absence of right great toe; Z89.421 Acquired absence of other right toe(s); Z87.891 Personal history of nicotine dependence
CPT/HCPCS: 71045; 71275; 80048; 80053; 82553; 82962; 84484 ×3; 85025 ×2; 93005; 96372; 96374; 97116; 97139 ×3; 99285; G0378 ×3; U0003; U0005; 36415; 36416; 90935; G0257; J1644; J2405; J7030; Q9967

== ENCOUNTER 2021-01-17 16:43 | Outpatient (CLI) | payer MEDICARE ==
[2021-01-17 18:23] LABS: Hemoglobin 8.4 g/dL (13.5-17.5); Mean Corpuscular HGB CONC 29.1 g/dL (32.0-36.0); Mean Corpuscular Hemoglobin 25.9 pg (27.0-33.0); Mean Corpuscular Volume 89.2 fl (81.2-95.1); Mean Platelet Volume 9.2 fl (7.4-10.4); Platelet Count 309 10x3/uL (150-450); RBC Distribution Width 17.6 % (11.5-14.5); Red Blood Cell (RBC) Count 3.24 10x6/uL (4.32-5.72); White Blood Cell (WBC) Count 9.1 10x3/uL (3.5-10.5)
[2021-01-17 18:38] LABS: Anion Gap 17 mmol/L (10-20); BUN (Urea Nitrogen) 46 mg/dL (8.4-25.7); Calc. Creatinine Clearance 0 mL/min (70-130); Calcium 10.6 mg/dL (7.8-10.44); Carbon Dioxide 26 mmol/L (22-29); Chloride 98 mmol/L (98-107); Glucose 209 mg/dL (70-105); Sodium 137 mmol/L (136-145)
[2021-01-18 01:06] LABS: SARS-CoV-2 PCR by NAA Not Detected (NotDetected)
== END 2021-01-17 16:44 | disposition home or self-care (01) ==
LOC: LABBT 16:43
PROVIDERS: ATTEND Internal Medicine Gastroenterology
DX: Z01.812 Encounter for preprocedural laboratory examination (principal); D12.6 Benign neoplasm of colon, unspecified; R19.7 Diarrhea, unspecified; Z20.822 Contact with and (suspected) exposure to COVID-19
CPT/HCPCS: 80048; 85027; U0003; U0005

== ENCOUNTER 2021-01-22 07:08 | Day surgery (SDC) | payer MEDICARE ==
[2021-01-21 14:58] VITALS: BMI 27.3
[2021-01-22] MEDS ORDERED: Scopolamine 1.5 mg/72 hour Patch ONE (08:29)
[2021-01-22] MEDS ORDERED: Ondansetron PF 4 MG/2 ML Vial ONE (08:29)
[2021-01-22] MEDS ORDERED: Bupivacaine PF 0.5% 30 ML VIAL ONE (09:02)
[2021-01-22] MEDS ORDERED: Fentanyl 100 MCG/2 ML VIAL ONE (09:04)
[2021-01-22] MEDS ORDERED: PROPOFOL 200 MG/20 ML VIAL ONE (09:18)
[2021-01-22] MEDS ORDERED: ePHEDrine 50 MG/ML VIAL ONE (09:18)
[2021-01-22] MEDS ORDERED: Esmolol 100 MG/10 ML VIAL ONE ×2 (09:18→10:04)
[2021-01-22] MEDS ORDERED: Calcium Chloride 1 GM/10 ML Abboject SYRINGE ONE (09:18)
== END 2021-01-22 12:13 | disposition home or self-care (01) ==
LOC: SDC 07:08
PROVIDERS: ATTEND Thoracic Surgery (Cardiothoracic Vascular Surgery)
PROC: 0KBW0ZZ Excision of Left Foot Muscle, Open Approach (ICD-10-PCS; principal; 2021-01-22)
DX: E11.52 Type 2 diabetes mellitus with diabetic peripheral angiopathy with gangrene (principal); I70.262 Atherosclerosis of native arteries of extremities with gangrene, left leg; I13.2 Hypertensive heart and chronic kidney disease with heart failure and with stage 5 chronic kidney disease, or end stage renal disease; E11.22 Type 2 diabetes mellitus with diabetic chronic kidney disease; N18.6 End stage renal disease; I50.32 Chronic diastolic (congestive) heart failure; J44.9 Chronic obstructive pulmonary disease, unspecified; I25.10 Atherosclerotic heart disease of native coronary artery without angina pectoris; Z79.02 Long term (current) use of antithrombotics/antiplatelets; Z79.4 Long term (current) use of insulin; Z79.82 Long term (current) use of aspirin; Z79.899 Other long term (current) drug therapy; Z88.0 Allergy status to penicillin; Z88.5 Allergy status to narcotic agent; Z89.421 Acquired absence of other right toe(s); Z89.432 Acquired absence of left foot; Z99.2 Dependence on renal dialysis
CPT/HCPCS: 36416; J2405; J2704; J3010; J3490; S0020

== ENCOUNTER 2022-01-12 04:05 | Inpatient (IN) | payer MEDICARE ==
[2022-01-12] MEDS ORDERED: Albuterol Sulfate 1.25 MG/3 ML NEB ONE (04:36)
[2022-01-12 04:53] LABS: Hemoglobin 11.5 g/dL (14.0-18.0); Mean Corpuscular HGB CONC 28.7 g/dL (32.0-36.0); Mean Corpuscular Volume 90.6 fL (78.0-98.0); Mean Platelet Volume 9.5 fL (7.4-10.4); Platelet Count 151 thou/uL (130-400); RBC Distribution Width 21.1 % (11.5-14.5); Red Blood Cell (RBC) Count 4.41 mill/uL (4.70-6.10); White Blood Cell (WBC) Count 8.1 thou/uL (4.8-10.8)
[2022-01-12 05:04] LABS: ALT (SGPT) 40 U/L (8-55); AST (SGOT) 54 U/L (5-34); Albumin 3.2 g/dL (3.5-5.0); Alkaline Phosphatase 133 U/L (40-110); Anion Gap 17 mmol/L (10-20); BUN (Urea Nitrogen) 25 mg/dL (8.4-25.7); Bilirubin, Total 1.3 mg/dL (0.2-1.2); Calc. Creatinine Clearance 0 mL/min (70-130); Calcium 9.6 mg/dL (7.8-10.44); Carbon Dioxide 25 mmol/L (22-29); Chloride 97 mmol/L (98-107); Estimated GFR 11; Globulin 5.3 g/dL (2.4-3.5); Glucose 60 mg/dL (70-105); Potassium 4.1 mmol/L (3.5-5.1); Protein, Total 8.5 g/dL (6.0-8.3); Sodium 135 mmol/L (136-145)
[2022-01-12 05:15] LABS: #Eosinphils 0.1 thou/uL (0.0-0.7); #Lymphocytes 1.1 thou/uL (1.20-3.40); #Monocytes 0.8 thou/uL (0.11-0.59); #Neutrophils 6.1 thou/uL (1.40-6.50); %Basophils 0.1 % (0.0-1.0); %Eosinophils 1.3 % (0.0-10.0); %Lymphocytes 13.6 % (21.0-51.0); %Neutrophils 75.1 % (42.0-75.0); Anisocytosis SLIGHT = 6-15 cells (100X) (0-5/hpf); Hypochromia SLIGHT = 6-15 cells (100X) (0-5/hpf); MDiff Complete? YES; Target Cells SLIGHT = 2-5 cells (100X) (0-1/hpf)
[2022-01-12] MEDS ORDERED: Midodrine HCl 5 MG TAB PO SCH (07:30)
[2022-01-12] MEDS ORDERED: Dextrose 50% Abboject 50 ML SYRINGE SLOW IVP PRN (08:41)
[2022-01-12] MEDS ORDERED: Ondansetron PF 4 MG/2 ML Vial IVP PRN (08:41)
[2022-01-12] MEDS ORDERED: Dextrose 5% in Water 1,000 ML IV PRN (08:41)
[2022-01-12] MEDS ORDERED: HYDROcodone/Acetaminophen 10/325 mg Tablet PO PRN (08:43)
[2022-01-12 09:07] LABS: SARS-CoV-2 NAA Rapid Test Not Detected (NotDetected)
[2022-01-12] MEDS ORDERED: Mometasone 100 MCG/Formoterol 5 MCG 120 PUFF INHALER INH SCH (09:30)
[2022-01-12] MEDS ORDERED: Cefepime 2 GM in Sodium Chloride 0.9% 100 ML IVPB SCH (10:00)
[2022-01-12] MEDS: Midodrine HCl 5 MG TAB PO SCH ×3 (11:09→21:22)
[2022-01-12] MEDS: Amiodarone 200 MG TAB PO SCH (11:29)
[2022-01-12] MEDS: Heparin 5,000 UNITS/ML VIAL SC SCH ×3 (11:33→21:26)
[2022-01-12] MEDS: Gabapentin 300 MG CAP PO SCH ×3 (11:33→21:22)
[2022-01-12] MEDS: Aspirin 81 mg Enteric Coated Tablet PO SCH (11:33)
[2022-01-12] MEDS: Prasugrel 10 MG TAB PO SCH (11:34)
[2022-01-12] MEDS: Sevelamer Carbonate 800 MG TAB PO SCH ×2 (11:34→17:04)
[2022-01-12 12:53] LABS: HBSAg Index 0.28 S/CO (0-0.99); Hep B Core Total Ab Non-Reactive (NonReactive); Hep B Surf Ag Non-Reactive S/CO (NonReactive); Hep C IgG Ab Non-Reactive (NonReactive); Hep C Index 0.16 S/CO (0-0.79)
[2022-01-12] MEDS ORDERED: Midodrine HCl 5 MG TAB PO PRN (12:57)
[2022-01-12] MEDS ORDERED: Albumin 25% 25 GM/100 ML BOT IVPB PRN (13:00)
[2022-01-12 13:01] LABS: HBSAB Concentration 51.76 mIU/mL; Hep B Surf AB Reactive (NonReactive)
[2022-01-12] MEDS: Mometasone 100 MCG/Formoterol 5 MCG 120 PUFF INHALER INH SCH (18:39)
[2022-01-12] MEDS: Atorvastatin Calcium 40 MG TAB PO SCH (21:25)
[2022-01-12] MEDS: Acetaminophen 325 MG TAB PO PRN (23:56)
[2022-01-13] MEDS ORDERED: Benzonatate 100 MG CAP PO PRN (02:12)
[2022-01-13] MEDS ORDERED: Pantoprazole 40 MG VIAL IVP SCH (02:15)
[2022-01-13 02:36] LABS: Hemoglobin 10.7 g/dL (14.0-18.0); Mean Corpuscular HGB CONC 29.2 g/dL (32.0-36.0); Mean Corpuscular Hemoglobin 26.4 pg (27.0-31.0); Mean Corpuscular Volume 90.6 fL (78.0-98.0); Mean Platelet Volume 9.4 fL (7.4-10.4); Platelet Count 131 thou/uL (130-400); RBC Distribution Width 21.3 % (11.5-14.5); Red Blood Cell (RBC) Count 4.05 mill/uL (4.70-6.10); White Blood Cell (WBC) Count 8.6 thou/uL (4.8-10.8)
[2022-01-13 02:44] LABS: ALT (SGPT) 40 U/L (8-55); AST (SGOT) 61 U/L (5-34); Albumin 3.1 g/dL (3.5-5.0); Alkaline Phosphatase 112 U/L (40-110); Anion Gap 22 mmol/L (10-20); BUN (Urea Nitrogen) 30 mg/dL (8.4-25.7); Calc. Creatinine Clearance 17 mL/min (70-130); Calcium 9.8 mg/dL (7.8-10.44); Carbon Dioxide 22 mmol/L (22-29); Chloride 96 mmol/L (98-107); Estimated GFR 12; Globulin 5.2 g/dL (2.4-3.5); Glucose 96 mg/dL (70-105); Potassium 3.8 mmol/L (3.5-5.1); Protein, Total 8.3 g/dL (6.0-8.3); Sodium 136 mmol/L (136-145)
[2022-01-13 03:12] LABS: #Lymphocytes 0.8 thou/uL (1.20-3.40); #Monocytes 0.4 thou/uL (0.11-0.59); #Neutrophils 7.4 thou/uL (1.40-6.50); %Basophils 0.1 % (0.0-1.0); %Eosinophils 0.1 % (0.0-10.0); %Lymphocytes 9.8 % (21.0-51.0); %Monocytes 4.9 % (0.0-10.0); %Neutrophils 85.1 % (42.0-75.0); Band 5 % (5-11); Lymphocytes 5 % (21-51); MDiff Complete? YES; Monocytes 5 % (0-10); Neutrophil 84 % (42-75)
[2022-01-13] MEDS: Pantoprazole 80 MG in Sodium Chloride 0.9% 100 ML IVPB SCH (03:12)
[2022-01-13 04:37] LABS: Anion Gap 20 mmol/L (10-20); BUN (Urea Nitrogen) 32 mg/dL (8.4-25.7); Calc. Creatinine Clearance 17 mL/min (70-130); Calcium 9.7 mg/dL (7.8-10.44); Carbon Dioxide 23 mmol/L (22-29); Chloride 97 mmol/L (98-107); Estimated GFR 12; Glucose 94 mg/dL (70-105); Potassium 3.9 mmol/L (3.5-5.1); Sodium 136 mmol/L (136-145)
[2022-01-13] MEDS: Mometasone 100 MCG/Formoterol 5 MCG 120 PUFF INHALER INH SCH ×2 (06:43→18:37)
[2022-01-13 06:45] LABS: #Basophils 0.1 thou/uL (0.0-0.2); #Lymphocytes 0.5 thou/uL (1.20-3.40); #Monocytes 0.5 thou/uL (0.11-0.59); #Neutrophils 7.1 thou/uL (1.40-6.50); %Basophils 1.6 % (0.0-1.0); %Eosinophils 0.1 % (0.0-10.0); %Lymphocytes 6.2 % (21.0-51.0); %Monocytes 5.6 % (0.0-10.0); %Neutrophils 86.6 % (42.0-75.0); Hemoglobin 10.5 g/dL (14.0-18.0); Mean Corpuscular HGB CONC 29.4 g/dL (32.0-36.0); Mean Corpuscular Hemoglobin 26.7 pg (27.0-31.0); Mean Corpuscular Volume 90.6 fL (78.0-98.0); Mean Platelet Volume 9.1 fL (7.4-10.4); Platelet Count 145 thou/uL (130-400); RBC Distribution Width 20.9 % (11.5-14.5); Red Blood Cell (RBC) Count 3.96 mill/uL (4.70-6.10); White Blood Cell (WBC) Count 8.2 thou/uL (4.8-10.8)
[2022-01-13 06:46] LABS: Hypochromia MODERATE=16-30 cells (100X) (0-5/hpf); MDiff Complete? YES; Platelet Morphology Comment Appears Adequate; Target Cells SLIGHT = 2-5 cells (100X) (0-1/hpf)
[2022-01-13] MEDS ORDERED: Metoclopramide HCl 10 MG/2 ML VIAL IVP PRN (07:58)
[2022-01-13] MEDS: Amiodarone 200 MG TAB PO SCH (08:11)
[2022-01-13] MEDS: Sevelamer Carbonate 800 MG TAB PO SCH ×3 (08:11→15:31)
[2022-01-13] MEDS: Mexiletine HCl 150 MG CAP PO SCH ×2 (08:13→21:26)
[2022-01-13] MEDS: Gabapentin 300 MG CAP PO SCH ×3 (08:13→21:26)
[2022-01-13] MEDS: Midodrine HCl 5 MG TAB PO SCH ×3 (08:13→21:26)
[2022-01-13] MEDS: Calcitriol 0.25 MCG CAP PO SCH (08:13)
[2022-01-13] MEDS ORDERED: MEXILETINE PO SCH (09:00)
[2022-01-13] MEDS ORDERED: FLU VACC QS2022-23(6MOS UP)/PF 60 MCG/0.5 ML SYRINGE IM ONE (09:00)
[2022-01-13] MEDS: Cefepime 1 GM in Sodium Chloride 0.9% 100 ML IVPB SCH (13:50)
[2022-01-13] MEDS: Atorvastatin Calcium 40 MG TAB PO SCH (21:26)
[2022-01-14] MEDS: Dextrose 10% in Water 500 ML IV SCH ×2 (01:52→13:09)
[2022-01-14] MEDS: Pantoprazole 80 MG in Sodium Chloride 0.9% 100 ML IVPB SCH (03:13)
[2022-01-14 04:25] LABS: Anion Gap 16 mmol/L (10-20); BUN (Urea Nitrogen) 25 mg/dL (8.4-25.7); Calc. Creatinine Clearance 18 mL/min (70-130); Calcium 9.4 mg/dL (7.8-10.44); Carbon Dioxide 26 mmol/L (22-29); Chloride 98 mmol/L (98-107); Estimated GFR 14; Glucose 86 mg/dL (70-105); Potassium 3.5 mmol/L (3.5-5.1); Sodium 136 mmol/L (136-145)
[2022-01-14 04:51] LABS: #Lymphocytes 0.7 thou/uL (1.20-3.40); #Monocytes 0.7 thou/uL (0.11-0.59); %Eosinophils 0.3 % (0.0-10.0); %Lymphocytes 9.1 % (21.0-51.0); %Monocytes 8.9 % (0.0-10.0); %Neutrophils 81.7 % (42.0-75.0); Anisocytosis SLIGHT = 6-15 cells (100X) (0-5/hpf); Hemoglobin 10.5 g/dL (14.0-18.0); Hypochromia SLIGHT = 6-15 cells (100X) (0-5/hpf); MDiff Complete? YES; Mean Corpuscular HGB CONC 28.3 g/dL (32.0-36.0); Mean Corpuscular Volume 91.8 fL (78.0-98.0); Mean Platelet Volume 10.2 fL (7.4-10.4); Platelet Count 125 thou/uL (130-400); RBC Distribution Width 21.3 % (11.5-14.5); Red Blood Cell (RBC) Count 4.02 mill/uL (4.70-6.10); Target Cells SLIGHT = 2-5 cells (100X) (0-1/hpf); White Blood Cell (WBC) Count 7.4 thou/uL (4.8-10.8)
[2022-01-14] MEDS: Mometasone 100 MCG/Formoterol 5 MCG 120 PUFF INHALER INH SCH ×2 (07:54→18:34)
[2022-01-14] MEDS: Sevelamer Carbonate 800 MG TAB PO SCH ×3 (08:33→16:52)
[2022-01-14] MEDS: Amiodarone 200 MG TAB PO SCH (08:33)
[2022-01-14] MEDS: Mexiletine HCl 150 MG CAP PO SCH ×2 (08:34→20:46)
[2022-01-14] MEDS: Midodrine HCl 5 MG TAB PO SCH ×3 (08:34→20:42)
[2022-01-14] MEDS: Gabapentin 300 MG CAP PO SCH ×4 (08:34→20:48)
[2022-01-14] MEDS ORDERED: Cepastat Lozenges 1 LOZ PO PRN (09:14)
[2022-01-14] MEDS: Pantoprazole 40 MG VIAL IVP SCH (10:03)
[2022-01-14] MEDS: Cefepime 1 GM in Sodium Chloride 0.9% 100 ML IVPB SCH (12:49)
[2022-01-14] MEDS ORDERED: Lactated Ringer's 500 ML IV SCH (16:30)
[2022-01-14] MEDS: Atorvastatin Calcium 40 MG TAB PO SCH (20:42)
[2022-01-15] MEDS: Dextrose 10% in Water 500 ML IV SCH ×3 (01:23→17:40)
[2022-01-15] MEDS: Mometasone 100 MCG/Formoterol 5 MCG 120 PUFF INHALER INH SCH ×2 (06:53→19:26)
[2022-01-15] MEDS ORDERED: Mineral Oil ENEMA PR SCH (07:41)
[2022-01-15] MEDS: Sevelamer Carbonate 800 MG TAB PO SCH ×3 (10:22→17:38)
[2022-01-15] MEDS: Gabapentin 300 MG CAP PO SCH ×3 (10:22→21:09)
[2022-01-15] MEDS: Prasugrel 10 MG TAB PO SCH (10:24)
[2022-01-15] MEDS: Calcitriol 0.25 MCG CAP PO SCH (10:24)
[2022-01-15] MEDS: Pantoprazole 40 MG VIAL IVP SCH (10:24)
[2022-01-15] MEDS: Aspirin 81 mg Enteric Coated Tablet PO SCH (10:25)
[2022-01-15 10:26] VITALS: BMI 26.2
[2022-01-15] MEDS: Midodrine HCl 5 MG TAB PO SCH ×3 (10:32→21:09)
[2022-01-15] MEDS: Cefepime 1 GM in Sodium Chloride 0.9% 100 ML IVPB SCH (12:23)
[2022-01-15] MEDS: Heparin 5,000 UNITS/ML VIAL SC SCH ×2 (12:26→21:08)
[2022-01-15] MEDS: Mexiletine HCl 150 MG CAP PO SCH ×2 (15:33→21:09)
[2022-01-15] MEDS: Amiodarone 200 MG TAB PO SCH (15:33)
[2022-01-15] MEDS: Acetaminophen 325 MG TAB PO PRN (18:41)
[2022-01-15] MEDS: Atorvastatin Calcium 40 MG TAB PO SCH (21:08)
[2022-01-16 07:22] LABS: #Eosinphils 0.1 thou/uL (0.0-0.7); #Lymphocytes 0.9 thou/uL (1.20-3.40); #Monocytes 0.6 thou/uL (0.11-0.59); #Neutrophils 5.7 thou/uL (1.40-6.50); %Basophils 0.7 % (0.0-1.0); %Lymphocytes 12.1 % (21.0-51.0); %Monocytes 7.6 % (0.0-10.0); %Neutrophils 78.6 % (42.0-75.0); Hemoglobin 9.9 g/dL (14.0-18.0); Mean Corpuscular HGB CONC 28.2 g/dL (32.0-36.0); Mean Corpuscular Hemoglobin 25.5 pg (27.0-31.0); Mean Corpuscular Volume 90.4 fL (78.0-98.0); Mean Platelet Volume 9.8 fL (7.4-10.4); Platelet Count 138 thou/uL (130-400); RBC Distribution Width 21.1 % (11.5-14.5); Red Blood Cell (RBC) Count 3.89 mill/uL (4.70-6.10); White Blood Cell (WBC) Count 7.2 thou/uL (4.8-10.8)
[2022-01-16] MEDS: Mometasone 100 MCG/Formoterol 5 MCG 120 PUFF INHALER INH SCH ×2 (07:40→18:53)
[2022-01-16 07:49] LABS: Albumin 2.6 g/dL (3.5-5.0); Anion Gap 16 mmol/L (10-20); BUN (Urea Nitrogen) 34 mg/dL (8.4-25.7); BUN/Creatinine Ratio 5.66; Calc. Creatinine Clearance 14 mL/min (70-130); Calcium 8.9 mg/dL (7.8-10.44); Carbon Dioxide 25 mmol/L (22-29); Chloride 96 mmol/L (98-107); Estimated GFR 10; Glucose 64 mg/dL (70-105); Phosphorus 3.1 mg/dL (2.3-4.7); Potassium 3.5 mmol/L (3.5-5.1); Sodium 133 mmol/L (136-145)
[2022-01-16 07:51] LABS: Burr Cells SLIGHT = 2-5 cells (100X) (0-1/hpf); Hypochromia MODERATE=16-30 cells (100X) (0-5/hpf); MDiff Complete? YES; Polychromasia SLIGHT = 2-3 cells (100X) (0-2/hpf); Target Cells SLIGHT = 2-5 cells (100X) (0-1/hpf)
[2022-01-16] MEDS: Heparin 5,000 UNITS/ML VIAL SC SCH ×2 (07:59→21:03)
[2022-01-16] MEDS: Mexiletine HCl 150 MG CAP PO SCH ×2 (07:59→21:03)
[2022-01-16] MEDS: Aspirin 81 mg Enteric Coated Tablet PO SCH (07:59)
[2022-01-16] MEDS: Sevelamer Carbonate 800 MG TAB PO SCH ×3 (07:59→16:48)
[2022-01-16] MEDS: Prasugrel 10 MG TAB PO SCH (07:59)
[2022-01-16] MEDS: Amiodarone 200 MG TAB PO SCH (07:59)
[2022-01-16] MEDS: Pantoprazole 40 MG VIAL IVP SCH (08:00)
[2022-01-16] MEDS: Gabapentin 300 MG CAP PO SCH ×3 (08:00→21:03)
[2022-01-16] MEDS ORDERED: Potassium Bicarbonate/Cit Ac 20 MEQ TAB PO SCH (09:45)
[2022-01-16] MEDS: Midodrine HCl 5 MG TAB PO SCH ×3 (11:04→21:03)
[2022-01-16] MEDS: Cefepime 1 GM in Sodium Chloride 0.9% 100 ML IVPB SCH (11:04)
[2022-01-16 13:46] VITALS: BP 83/66
[2022-01-16] MEDS: Metoclopramide HCl 10 MG/2 ML VIAL IVP SCH ×2 (16:48→21:04)
[2022-01-16] MEDS: Atorvastatin Calcium 40 MG TAB PO SCH (21:03)
[2022-01-17] MEDS: Metoclopramide HCl 10 MG/2 ML VIAL IVP SCH ×2 (04:50→08:50)
[2022-01-17] MEDS: Mometasone 100 MCG/Formoterol 5 MCG 120 PUFF INHALER INH SCH (06:15)
[2022-01-17] MEDS: Aspirin 81 mg Enteric Coated Tablet PO SCH (07:35)
[2022-01-17] MEDS: Sevelamer Carbonate 800 MG TAB PO SCH (07:36)
[2022-01-17] MEDS: Mexiletine HCl 150 MG CAP PO SCH (07:36)
[2022-01-17] MEDS: Amiodarone 200 MG TAB PO SCH (07:36)
[2022-01-17] MEDS: Midodrine HCl 5 MG TAB PO SCH (07:36)
[2022-01-17] MEDS: Calcitriol 0.25 MCG CAP PO SCH (07:36)
[2022-01-17] MEDS: Prasugrel 10 MG TAB PO SCH (07:36)
[2022-01-17] MEDS: Pantoprazole 40 MG VIAL IVP SCH (07:36)
[2022-01-17] MEDS: Gabapentin 300 MG CAP PO SCH (07:43)
[2022-01-17] MEDS: Heparin 5,000 UNITS/ML VIAL SC SCH (07:44)
[2022-01-17 08:32] VITALS: TEMP 98.5
[2022-01-17] MEDS: Albumin 25% 25 GM/100 ML BOT IVPB SCH ×2 (08:50→10:02)
== END 2022-01-17 12:40 | disposition hospice, home (50) | DRG 291 ==
LOC: ERS 04:05 → ERHOLD 06:39 → IMCU/EMU 09:31
PROVIDERS: ADMIT Internal Medicine; ATTEND Internal Medicine
PROC: 5A1D70Z Performance of Urinary Filtration, Intermittent, Less than 6 Hours Per Day (ICD-10-PCS; principal; 2022-01-13)
PROC: 0D9670Z Drainage of Stomach with Drainage Device, Via Natural or Artificial Opening (ICD-10-PCS; 2022-01-13)
PROC: 5A09357 Assistance with Respiratory Ventilation, Less than 24 Consecutive Hours, Continuous Positive Airway Pressure (ICD-10-PCS; 2022-01-13)
DX: I13.2 Hypertensive heart and chronic kidney disease with heart failure and with stage 5 chronic kidney disease, or end stage renal disease (principal); Z51.5 Encounter for palliative care; Z66 Do not resuscitate; Z20.822 Contact with and (suspected) exposure to COVID-19; I50.43 Acute on chronic combined systolic (congestive) and diastolic (congestive) heart failure; J96.21 Acute and chronic respiratory failure with hypoxia; N18.6 End stage renal disease; K56.7 Ileus, unspecified; R18.8 Other ascites; R57.9 Shock, unspecified; E11.22 Type 2 diabetes mellitus with diabetic chronic kidney disease; E11.40 Type 2 diabetes mellitus with diabetic neuropathy, unspecified; J44.9 Chronic obstructive pulmonary disease, unspecified; E78.5 Hyperlipidemia, unspecified; I25.10 Atherosclerotic heart disease of native coronary artery without angina pectoris; E11.649 Type 2 diabetes mellitus with hypoglycemia without coma; K21.9 Gastro-esophageal reflux disease without esophagitis; E88.09 Other disorders of plasma-protein metabolism, not elsewhere classified; D63.1 Anemia in chronic kidney disease; R94.31 Abnormal electrocardiogram [ECG] [EKG]; S91.301A Unspecified open wound, right foot, initial encounter; Z87.891 Personal history of nicotine dependence; Z98.42 Cataract extraction status, left eye; Z98.41 Cataract extraction status, right eye; Z99.2 Dependence on renal dialysis; Z88.0 Allergy status to penicillin; Z88.5 Allergy status to narcotic agent; Z79.82 Long term (current) use of aspirin; Z79.899 Other long term (current) drug therapy; Z99.81 Dependence on supplemental oxygen; Z79.51 Long term (current) use of inhaled steroids; G89.29 Other chronic pain; Z95.5 Presence of coronary angioplasty implant and graft; H54.8 Legal blindness, as defined in USA; X58.XXXA Exposure to other specified factors, initial encounter
CPT/HCPCS: 36415; 36416; 71045; 74018; 74176; 80048; 80053; 80069; 83605; 83880; 85025; 86704; 86850; 86900; 86901; 87340; 90935; 93005; 94640; 97139; C9113; G0257; J0692; J1644; J2405; J2765; J3490; J7060; J7620; J7999; P9047

== ENCOUNTER 2022-02-22 06:47 | Inpatient (IN) | payer MEDICARE ==
[2022-02-22] MEDS ORDERED: Magnesium 2 GM/50 ML BAG (IN WATER) ONE (06:51)
[2022-02-22] MEDS ORDERED: EPINEPHrine 1 MG/10 ML Abboject SYRINGE ONE (07:15)
[2022-02-22] MEDS ORDERED: NOREPINEPHRINE 8 MG/250 ML-D5W 250 ML ONE (07:26)
[2022-02-22] MEDS ORDERED: Furosemide 40 MG/4 ML VIAL ONE (07:34)
[2022-02-22 07:45] LABS: ALT (SGPT) 24 U/L (8-55); AST (SGOT) 31 U/L (5-34); Albumin 3.2 g/dL (3.5-5.0); Alkaline Phosphatase 97 U/L (40-110); Anion Gap 18 mmol/L (10-20); BUN (Urea Nitrogen) 34 mg/dL (8.4-25.7); Bilirubin, Total 2.2 mg/dL (0.2-1.2); Calc. Creatinine Clearance 0 mL/min (70-130); Calcium 9.3 mg/dL (7.8-10.44); Carbon Dioxide 26 mmol/L (22-29); Chloride 94 mmol/L (98-107); Estimated GFR 9; Globulin 5.6 g/dL (2.4-3.5); Glucose 137 mg/dL (70-105); Magnesium 1.8 mg/dL (1.6-2.6); Potassium 3.9 mmol/L (3.5-5.1); Protein, Total 8.8 g/dL (6.0-8.3); Sodium 134 mmol/L (136-145)
[2022-02-22 08:25] LABS: Band 4 % (5-11); Crenated RBC SLIGHT = 1-5 cells (100X) (None Seen); Elliptocytes SLIGHT = 2-5 cells (100X) (0-1/hpf); Hemoglobin 12.8 g/dL (14.0-18.0); Lymphocytes 2 % (21-51); MDiff Complete? YES; Mean Corpuscular HGB CONC 27.9 g/dL (32.0-36.0); Mean Corpuscular Hemoglobin 26.1 pg (27.0-31.0); Mean Corpuscular Volume 93.5 fl (78.0-98.0); Mean Platelet Volume 10.8 fL (7.4-10.4); Monocytes 1 % (0-10); Neutrophil 93 % (42-75); Platelet Count 125 10x3/uL (130-400); Platelet Morphology Comment Appears Decreased; RBC Distribution Width 19.9 % (11.5-14.5); Red Blood Cell (RBC) Count 4.89 mill/uL (4.70-6.10); White Blood Cell (WBC) Count 12.4 10x3/uL (4.8-10.8)
[2022-02-22] MEDS ORDERED: Fentanyl CADD 100 ML IV SCH ×2 (08:45→10:30)
[2022-02-22] MEDS ORDERED: Acetaminophen 325 MG TAB PO PRN (08:52)
[2022-02-22] MEDS ORDERED: Dextrose 5% in Water 1,000 ML IV PRN (09:34)
[2022-02-22] MEDS ORDERED: Dextrose 50% Abboject 50 ML SYRINGE SLOW IVP PRN (09:34)
[2022-02-22] MEDS ORDERED: HumaLOG 300 UNITS/3 ML VIAL SC PRN (09:34)
[2022-02-22 10:02] LABS: Base Excess (BEa) -1.4 mEq/L (-2.0 to +3.0); CO2 Tension 32.9 mmHg (35.0-45.0); Calcium, Ionized (arterial) 1.14 mmol/L (1.12-1.30); Carboxyhemoglobin (COHb) 0.8 gm% (0.0-3.0); Hemoglobin (Hb) 12.8 g/dL (14.0-18.0); Potassium - ABG Lab 3.38 mmol/L (3.70-5.30); pH, Arterial 7.44 (7.35-7.45)
[2022-02-22] MEDS ORDERED: Midazolam HCl 2 mg/2 ml Vial SLOW IVP PRN (10:23)
[2022-02-22] MEDS: Propofol 1,000 MG/100 ML VIAL IV PRN (10:28)
[2022-02-22] MEDS ORDERED: Morphine 4 MG/ML VIAL SLOW IVP PRN (10:30)
[2022-02-22] MEDS ORDERED: DISCONTINUE PREVIOUS NARCOTIC PAIN MEDICATIONS AND BENZODIAZEPINES FS SCH (10:30)
[2022-02-22] MEDS ORDERED: Propofol BOLUS 1,000 MG/100 ML VIAL IV PRN (10:30)
[2022-02-22] MEDS ORDERED: Fentanyl BOLUS 250 ML IVPB PRN (10:30)
[2022-02-22] MEDS: Albumin 25% 25 GM/100 ML BOT IVPB SCH ×2 (10:38→11:25)
[2022-02-22 10:53] VITALS: BMI 24.3
[2022-02-22] MEDS ORDERED: Cefepime 2 GM in Sodium Chloride 0.9% 100 ML IVPB SCH (11:00)
[2022-02-22] MEDS: Heparin 5,000 UNITS/ML VIAL SC SCH ×3 (11:13→20:29)
[2022-02-22] MEDS ORDERED: Albumin 25% 100 ML ONE (11:25)
[2022-02-22 11:37] LABS: Lactic Acid 1.7 mmol/L (0.5-2.2)
[2022-02-22 11:47] LABS: Troponin I 0.058 ng/mL (< 0.028)
[2022-02-22 12:03] LABS: HBSAg Index 0.22 S/CO (0-0.99); Hep B Core Total Ab Non-Reactive (NonReactive); Hep B Core Total Index 0.33 S/CO (0-0.79); Hep B Surf Ag Non-Reactive S/CO (NonReactive); Hep C IgG Ab Non-Reactive (NonReactive); Hep C Index 0.16 S/CO (0-0.79)
[2022-02-22 12:15] LABS: HBSAB Concentration 57.74 mIU/mL; Hep B Surf AB Reactive (NonReactive)
[2022-02-22] MEDS ORDERED: Vancomycin Diaylsis Sliding Scale (Wt 71-99) FS SCH (12:15)
[2022-02-22] MEDS ORDERED: Vancomycin 1.5 GRAM/300 ML BAG 1.5 GM in Premix Bag 1 BAG IVPB SCH (12:15)
[2022-02-22 14:06] LABS: Troponin I 0.064 ng/mL (< 0.028)
[2022-02-22 14:19] LABS: ALV-art Gradient 256.775 mmHg (0-20); O2 Tension (PaO2), arterial 58.6 mmHg (> 80.0); Puncture Site RRA
[2022-02-22 16:15] LABS: Lactic Acid 0.6 mmol/L (0.5-2.2)
[2022-02-22] MEDS ORDERED: Famotidine 20 MG TAB PO SCH (21:00)
[2022-02-23] MEDS: Propofol 1,000 MG/100 ML VIAL IV PRN ×3 (00:18→21:43)
[2022-02-23 04:37] LABS: Anion Gap 19 mmol/L (10-20); BUN (Urea Nitrogen) 33 mg/dL (8.4-25.7); Calc. Creatinine Clearance 13 mL/min (70-130); Carbon Dioxide 20 mmol/L (22-29); Chloride 100 mmol/L (98-107); Estimated GFR 10; Glucose 128 mg/dL (70-105); Potassium 4.1 mmol/L (3.5-5.1); Sodium 135 mmol/L (136-145)
[2022-02-23 05:43] LABS: #Lymphocytes 0.5 thou/uL (1.20-3.40); #Monocytes 0.4 thou/uL (0.11-0.59); %Eosinophils 0.1 % (0.0-10.0); %Lymphocytes 5.9 % (21.0-51.0); %Monocytes 5.3 % (0.0-10.0); %Neutrophils 88.7 % (42.0-75.0); Anisocytosis MODERATE=16-30 cells (100X) (0-5/hpf); Elliptocytes SLIGHT = 2-5 cells (100X) (0-1/hpf); Hemoglobin 10.3 g/dL (14.0-18.0); MDiff Complete? YES; Mean Corpuscular HGB CONC 29.2 g/dL (32.0-36.0); Mean Corpuscular Hemoglobin 27.2 pg (27.0-31.0); Mean Corpuscular Volume 93.1 fl (78.0-98.0); Mean Platelet Volume 11.5 fL (7.4-10.4); Platelet Count 66 10x3/uL (130-400); Platelet Morphology Comment Appears Decreased; RBC Distribution Width 19.3 % (11.5-14.5); Red Blood Cell (RBC) Count 3.79 mill/uL (4.70-6.10); Target Cells SLIGHT = 2-5 cells (100X) (0-1/hpf); White Blood Cell (WBC) Count 7.9 10x3/uL (4.8-10.8)
[2022-02-23 07:59] LABS: Actual Bicarbonate (HCO3a) 25.1 mEq/L (22-28); Base Excess (BEa) 4.1 mEq/L (-2.0 to +3.0); CO2 Tension 26.7 mmHg (35.0-45.0); Calcium, Ionized (arterial) 1.16 mmol/L (1.12-1.30); Carboxyhemoglobin (COHb) 0.5 gm% (0.0-3.0); Hemoglobin (Hb) 11.1 g/dL (14.0-18.0); O2 Tension (PaO2), arterial 146.5 mmHg (> 80.0); pH, Arterial 7.59 (7.35-7.45)
[2022-02-23 08:00] LABS: ALV-art Gradient 176.625 mmHg (0-20); Puncture Site RBA
[2022-02-23] MEDS: Heparin 5,000 UNITS/ML VIAL SC SCH (08:25)
[2022-02-23] MEDS: Famotidine/PF 20 mg/2ml Vial SLOW IVP SCH (08:25)
[2022-02-23] MEDS: Metoclopramide HCl 10 MG/2 ML VIAL IVP SCH ×3 (10:14→21:32)
[2022-02-23] MEDS: Cefepime 1 GM in Sodium Chloride 0.9% 100 ML IVPB SCH (10:14)
[2022-02-23] MEDS ORDERED: Albumin 25% 100 ML ONE (11:08)
[2022-02-23] MEDS ORDERED: Albumin 25% 25 GM/100 ML BOT IVPB SCH (11:15)
[2022-02-24] MEDS: Metoclopramide HCl 10 MG/2 ML VIAL IVP SCH ×4 (03:27→19:40)
[2022-02-24] MEDS: Propofol 1,000 MG/100 ML VIAL IV PRN ×2 (06:22→20:26)
[2022-02-24 07:52] LABS: Actual Bicarbonate (HCO3a) 22.8 mEq/L (22-28); Base Excess (BEa) -1.8 mEq/L (-2.0 to +3.0); CO2 Tension 38.2 mmHg (35.0-45.0); Calcium, Ionized (arterial) 1.18 mmol/L (1.12-1.30); Carboxyhemoglobin (COHb) 0.8 gm% (0.0-3.0); Hemoglobin (Hb) 12.1 g/dL (14.0-18.0); O2 Tension (PaO2), arterial 61.7 mmHg (> 80.0); Potassium - ABG Lab 4.08 mmol/L (3.70-5.30); pH, Arterial 7.39 (7.35-7.45)
[2022-02-24 07:53] LABS: Puncture Site RBA
[2022-02-24] MEDS ORDERED: Heparin 10,000 UNITS/ 10 ML VIAL ONE (08:35)
[2022-02-24] MEDS: Famotidine/PF 20 mg/2ml Vial SLOW IVP SCH (08:44)
[2022-02-24] MEDS ORDERED: Albumin 25% 25 GM/100 ML BOT IVPB SCH (09:28)
[2022-02-24 10:05] LABS: #Lymphocytes 0.6 thou/uL (1.20-3.40); #Monocytes 0.6 thou/uL (0.11-0.59); #Neutrophils 9.9 thou/uL (1.40-6.50); %Basophils 0.3 % (0.0-1.0); %Lymphocytes 5.4 % (21.0-51.0); %Neutrophils 89.3 % (42.0-75.0); Hemoglobin 9.1 g/dL (14.0-18.0); Mean Corpuscular HGB CONC 29.5 g/dL (32.0-36.0); Mean Corpuscular Hemoglobin 27.1 pg (27.0-31.0); Mean Corpuscular Volume 91.8 fl (78.0-98.0); Mean Platelet Volume 10.5 fL (7.4-10.4); Platelet Count 81 10x3/uL (130-400); RBC Distribution Width 19.3 % (11.5-14.5); Red Blood Cell (RBC) Count 3.37 mill/uL (4.70-6.10); White Blood Cell (WBC) Count 11.1 10x3/uL (4.8-10.8)
[2022-02-24 10:15] LABS: Vancomycin, Random 6.5 ug/mL (See Comment)
[2022-02-24 10:17] LABS: Anion Gap 12 mmol/L (10-20); BUN (Urea Nitrogen) 20 mg/dL (8.4-25.7); Calc. Creatinine Clearance 25 mL/min (70-130); Calcium 7.9 mg/dL (7.8-10.44); Carbon Dioxide 28 mmol/L (22-29); Chloride 98 mmol/L (98-107); Estimated GFR 22; Glucose 119 mg/dL (70-105); Potassium 3.4 mmol/L (3.5-5.1); Sodium 135 mmol/L (136-145)
[2022-02-24] MEDS: NOREPINEPHRINE 8 MG/250 ML-D5W 250 ML IVPB SCH (10:41)
[2022-02-24] MEDS: Cefepime 1 GM in Sodium Chloride 0.9% 100 ML IVPB SCH (10:41)
[2022-02-24 11:26] LABS: Vancomycin, Random 11.9 ug/mL (See Comment)
[2022-02-24 11:29] LABS: Albumin 3.6 g/dL (3.5-5.0); Anion Gap 19 mmol/L (10-20); BUN (Urea Nitrogen) 45 mg/dL (8.4-25.7); Calc. Creatinine Clearance 12 mL/min (70-130); Calcium 9.6 mg/dL (7.8-10.44); Carbon Dioxide 23 mmol/L (22-29); Chloride 97 mmol/L (98-107); Estimated GFR 9; Glucose 138 mg/dL (70-105); Potassium 4.6 mmol/L (3.5-5.1); Sodium 134 mmol/L (136-145)
[2022-02-24 11:32] LABS: #Basophils 0.1 thou/uL (0.0-0.2); #Lymphocytes 0.5 thou/uL (1.20-3.40); #Monocytes 0.5 thou/uL (0.11-0.59); #Neutrophils 8.7 thou/uL (1.40-6.50); %Basophils 1.2 % (0.0-1.0); %Eosinophils 0.1 % (0.0-10.0); %Lymphocytes 5.4 % (21.0-51.0); %Monocytes 5.2 % (0.0-10.0); %Neutrophils 88.2 % (42.0-75.0); Hemoglobin 12.1 g/dL (14.0-18.0); Mean Corpuscular HGB CONC 28.2 g/dL (32.0-36.0); Mean Corpuscular Hemoglobin 26.5 pg (27.0-31.0); Mean Corpuscular Volume 93.9 fl (78.0-98.0); Mean Platelet Volume 10.5 fL (7.4-10.4); Platelet Count 88 10x3/uL (130-400); RBC Distribution Width 19.8 % (11.5-14.5); Red Blood Cell (RBC) Count 4.56 mill/uL (4.70-6.10); White Blood Cell (WBC) Count 9.8 10x3/uL (4.8-10.8)
[2022-02-24] MEDS ORDERED: Vancomycin 1 GM in Premix Bag 1 BAG IVPB SCH (17:00)
[2022-02-25] MEDS: Metoclopramide HCl 10 MG/2 ML VIAL IVP SCH ×4 (02:22→20:36)
[2022-02-25 08:23] LABS: Base Excess (BEa) -1.3 mEq/L (-2.0 to +3.0); CO2 Tension 42.9 mmHg (35.0-45.0); Calcium, Ionized (arterial) 1.19 mmol/L (1.12-1.30); Carboxyhemoglobin (COHb) 0.9 gm% (0.0-3.0); Hemoglobin (Hb) 10.8 g/dL (14.0-18.0); O2 Tension (PaO2), arterial 131.7 mmHg (> 80.0); Potassium - ABG Lab 3.68 mmol/L (3.70-5.30); pH, Arterial 7.37 (7.35-7.45)
[2022-02-25 08:34] LABS: Puncture Site RBA
[2022-02-25 08:35] LABS: ALV-art Gradient 99.875 mmHg (0-20)
[2022-02-25] MEDS: Famotidine/PF 20 mg/2ml Vial SLOW IVP SCH (08:37)
[2022-02-25 08:42] LABS: #Lymphocytes 0.8 thou/uL (1.20-3.40); #Monocytes 0.4 thou/uL (0.11-0.59); #Neutrophils 6.3 thou/uL (1.40-6.50); %Eosinophils 0.5 % (0.0-10.0); %Monocytes 5.3 % (0.0-10.0); %Neutrophils 83.2 % (42.0-75.0); Hemoglobin 10.2 g/dL (14.0-18.0); Mean Corpuscular HGB CONC 30.5 g/dL (32.0-36.0); Mean Corpuscular Hemoglobin 28.1 pg (27.0-31.0); Mean Corpuscular Volume 92.2 fl (78.0-98.0); Mean Platelet Volume 10.5 fL (7.4-10.4); Platelet Count 65 10x3/uL (130-400); RBC Distribution Width 19.2 % (11.5-14.5); Red Blood Cell (RBC) Count 3.62 mill/uL (4.70-6.10); White Blood Cell (WBC) Count 7.6 10x3/uL (4.8-10.8)
[2022-02-25 09:05] LABS: Anion Gap 16 mmol/L (10-20); BUN (Urea Nitrogen) 39 mg/dL (8.4-25.7); BUN/Creatinine Ratio 7.03; Calc. Creatinine Clearance 15 mL/min (70-130); Calcium 8.9 mg/dL (7.8-10.44); Carbon Dioxide 23 mmol/L (22-29); Chloride 98 mmol/L (98-107); Estimated GFR 11; Glucose 97 mg/dL (70-105); Phosphorus 4.5 mg/dL (2.3-4.7); Potassium 3.7 mmol/L (3.5-5.1); Sodium 133 mmol/L (136-145)
[2022-02-25] MEDS: Cefepime 1 GM in Sodium Chloride 0.9% 100 ML IVPB SCH (11:10)
[2022-02-25] MEDS: NOREPINEPHRINE 8 MG/250 ML-D5W 250 ML IVPB SCH (11:35)
[2022-02-25] MEDS ORDERED: Albumin 25% 25 GM/100 ML BOT IVPB SCH (13:40)
[2022-02-25] MEDS: Propofol 1,000 MG/100 ML VIAL IV PRN (17:08)
[2022-02-26] MEDS: Metoclopramide HCl 10 MG/2 ML VIAL IVP SCH ×4 (02:25→20:07)
[2022-02-26] MEDS: Propofol 1,000 MG/100 ML VIAL IV PRN ×2 (02:26→10:15)
[2022-02-26 07:05] LABS: Hemoglobin 10.5 g/dL (14.0-18.0); Mean Corpuscular HGB CONC 29.2 g/dL (32.0-36.0); Mean Corpuscular Hemoglobin 27.4 pg (27.0-31.0); Mean Platelet Volume 6.9 fL (7.4-10.4); Platelet Count 47 10x3/uL (130-400); RBC Distribution Width 19.4 % (11.5-14.5); Red Blood Cell (RBC) Count 3.83 mill/uL (4.70-6.10); White Blood Cell (WBC) Count 9.6 10x3/uL (4.8-10.8)
[2022-02-26 07:16] LABS: Actual Bicarbonate (HCO3a) 25.9 mEq/L (22-28); Base Excess (BEa) 0.3 mEq/L (-2.0 to +3.0); CO2 Tension 46.3 mmHg (35.0-45.0); Calcium, Ionized (arterial) 1.19 mmol/L (1.12-1.30); Carboxyhemoglobin (COHb) 1.7 gm% (0.0-3.0); Hemoglobin (Hb) 10.3 g/dL (14.0-18.0); O2 Tension (PaO2), arterial 146.2 mmHg (> 80.0); Potassium - ABG Lab 3.73 mmol/L (3.70-5.30); pH, Arterial 7.37 (7.35-7.45)
[2022-02-26 07:21] LABS: Vancomycin, Random 21.2 ug/mL (See Comment)
[2022-02-26 07:24] LABS: Anion Gap 21 mmol/L (10-20); BUN (Urea Nitrogen) 45 mg/dL (8.4-25.7); Calc. Creatinine Clearance 13 mL/min (70-130); Calcium 9.6 mg/dL (7.8-10.44); Carbon Dioxide 18 mmol/L (22-29); Chloride 99 mmol/L (98-107); Estimated GFR 10; Glucose 77 mg/dL (70-105); Potassium 4.6 mmol/L (3.5-5.1); Sodium 133 mmol/L (136-145)
[2022-02-26 07:29] LABS: #Eosinphils 0.1 thou/uL (0.0-0.7); #Lymphocytes 0.9 thou/uL (1.20-3.40); #Monocytes 0.6 thou/uL (0.11-0.59); %Basophils 0.1 % (0.0-1.0); %Lymphocytes 9.2 % (21.0-51.0); %Monocytes 6.2 % (0.0-10.0); %Neutrophils 83.5 % (42.0-75.0); Anisocytosis SLIGHT = 6-15 cells (100X) (0-5/hpf); Crenated RBC SLIGHT = 1-5 cells (100X) (None Seen); Hypochromia SLIGHT = 6-15 cells (100X) (0-5/hpf); MDiff Complete? YES; Ovalocytes SLIGHT = 2-5 cells (100X) (0-1/hpf); Platelet Morphology Comment Appears Decreased; Target Cells SLIGHT = 2-5 cells (100X) (0-1/hpf)
[2022-02-26 07:50] LABS: ALV-art Gradient 81.125 mmHg (0-20); Puncture Site RRA
[2022-02-26] MEDS: Famotidine/PF 20 mg/2ml Vial SLOW IVP SCH ×2 (08:17→09:58)
[2022-02-26] MEDS: Cefepime 1 GM in Sodium Chloride 0.9% 100 ML IVPB SCH (10:01)
[2022-02-26] MEDS: NOREPINEPHRINE 8 MG/250 ML-D5W 250 ML IVPB SCH (10:15)
[2022-02-26] MEDS ORDERED: Albumin 25% 25 GM/100 ML BOT IVPB SCH ×2 (15:15→17:45)
[2022-02-26] MEDS ORDERED: Vancomycin HCl 250 MG in Sodium Chloride 0.9% 100 ML IVPB SCH (17:00)
[2022-02-27] MEDS ORDERED: Dextrose 10% in Water 1,000 ML IV SCH (00:15)
[2022-02-27] MEDS: NOREPINEPHRINE 8 MG/250 ML-D5W 250 ML IVPB SCH ×2 (00:37→13:32)
[2022-02-27] MEDS: Propofol 1,000 MG/100 ML VIAL IV PRN ×2 (01:05→06:40)
[2022-02-27] MEDS: Metoclopramide HCl 10 MG/2 ML VIAL IVP SCH ×4 (02:14→20:37)
[2022-02-27 03:31] LABS: #Eosinphils 0.1 thou/uL (0.0-0.7); #Lymphocytes 0.7 thou/uL (1.20-3.40); #Monocytes 0.6 thou/uL (0.11-0.59); #Neutrophils 7.1 thou/uL (1.40-6.50); %Eosinophils 0.7 % (0.0-10.0); %Monocytes 7.3 % (0.0-10.0); %Neutrophils 84.1 % (42.0-75.0); Hemoglobin 9.2 g/dL (14.0-18.0); Mean Corpuscular HGB CONC 29.3 g/dL (32.0-36.0); Mean Corpuscular Hemoglobin 27.2 pg (27.0-31.0); Mean Corpuscular Volume 92.9 fl (78.0-98.0); Platelet Count 60 10x3/uL (130-400); RBC Distribution Width 19.3 % (11.5-14.5); Red Blood Cell (RBC) Count 3.37 mill/uL (4.70-6.10); White Blood Cell (WBC) Count 8.4 10x3/uL (4.8-10.8)
[2022-02-27 03:42] LABS: Anion Gap 21 mmol/L (10-20); BUN (Urea Nitrogen) 37 mg/dL (8.4-25.7); Calc. Creatinine Clearance 16 mL/min (70-130); Calcium 9.8 mg/dL (7.8-10.44); Carbon Dioxide 22 mmol/L (22-29); Chloride 93 mmol/L (98-107); Estimated GFR 12; Glucose 319 mg/dL (70-105); Potassium 3.5 mmol/L (3.5-5.1); Sodium 132 mmol/L (136-145)
[2022-02-27 03:50] LABS: Magnesium 1.9 mg/dL (1.6-2.6)
[2022-02-27] MEDS: Famotidine/PF 20 mg/2ml Vial SLOW IVP SCH (08:31)
[2022-02-27 08:35] LABS: Actual Bicarbonate (HCO3a) 23.1 mEq/L (22-28); Base Excess (BEa) -1.8 mEq/L (-2.0 to +3.0); CO2 Tension 39.6 mmHg (35.0-45.0); Calcium, Ionized (arterial) 1.19 mmol/L (1.12-1.30); Carboxyhemoglobin (COHb) 1.7 gm% (0.0-3.0); Hemoglobin (Hb) 10.4 g/dL (14.0-18.0); O2 Tension (PaO2), arterial 101.7 mmHg (> 80.0); Potassium - ABG Lab 3.49 mmol/L (3.70-5.30); pH, Arterial 7.38 (7.35-7.45)
[2022-02-27 09:01] LABS: Puncture Site RRA
[2022-02-27] MEDS ORDERED: Fentanyl CADD 100 ML ONE (10:44)
[2022-02-27] MEDS ORDERED: Midazolam HCl 2 mg/2 ml Vial SLOW IVP PRN (10:48)
[2022-02-27] MEDS ORDERED: Fentanyl BOLUS 250 ML IVPB PRN (10:49)
[2022-02-27] MEDS ORDERED: Fentanyl CADD 100 ML IV SCH (11:00)
[2022-02-27] MEDS: Cefepime 1 GM in Sodium Chloride 0.9% 100 ML IVPB SCH (11:11)
[2022-02-27] MEDS: metroNIDAZOLE 500 MG in Premix Bag 1 BAG IVPB SCH ×2 (14:30→22:58)
[2022-02-28] MEDS: Metoclopramide HCl 10 MG/2 ML VIAL IVP SCH ×3 (02:23→14:32)
[2022-02-28 04:11] LABS: #Eosinphils 0.1 thou/uL (0.0-0.7); #Lymphocytes 1.1 thou/uL (1.20-3.40); #Monocytes 0.7 thou/uL (0.11-0.59); %Basophils 0.1 % (0.0-1.0); %Eosinophils 1.2 % (0.0-10.0); %Lymphocytes 13.5 % (21.0-51.0); %Monocytes 8.3 % (0.0-10.0); %Neutrophils 76.9 % (42.0-75.0); Hemoglobin 9.1 g/dL (14.0-18.0); Mean Corpuscular HGB CONC 29.2 g/dL (32.0-36.0); Mean Corpuscular Hemoglobin 26.9 pg (27.0-31.0); Mean Platelet Volume 13.2 fL (7.4-10.4); Platelet Count 80 10x3/uL (130-400); RBC Distribution Width 19.7 % (11.5-14.5); Red Blood Cell (RBC) Count 3.38 mill/uL (4.70-6.10); White Blood Cell (WBC) Count 7.8 10x3/uL (4.8-10.8)
[2022-02-28] MEDS: NOREPINEPHRINE 8 MG/250 ML-D5W 250 ML IVPB SCH (04:54)
[2022-02-28] MEDS: metroNIDAZOLE 500 MG in Premix Bag 1 BAG IVPB SCH ×2 (04:59→14:33)
[2022-02-28 05:29] LABS: Chloride 93 mmol/L (98-107); Potassium 3.6 mmol/L (3.5-5.1); Sodium 129 mmol/L (136-145)
[2022-02-28 05:30] LABS: Calcium 9.1 mg/dL (7.8-10.44); Glucose 134 mg/dL (70-105)
[2022-02-28 05:32] LABS: Anion Gap 17 mmol/L (10-20); Carbon Dioxide 23 mmol/L (22-29)
[2022-02-28 05:34] LABS: BUN (Urea Nitrogen) 43 mg/dL (8.4-25.7); Calc. Creatinine Clearance 15 mL/min (70-130); Estimated GFR 11
[2022-02-28 08:01] LABS: Actual Bicarbonate (HCO3a) 25.4 mEq/L (22-28); Base Excess (BEa) -0.9 mEq/L (-2.0 to +3.0); CO2 Tension 50.1 mmHg (35.0-45.0); Calcium, Ionized (arterial) 1.21 mmol/L (1.12-1.30); Carboxyhemoglobin (COHb) 0.9 gm% (0.0-3.0); Hemoglobin (Hb) 10.2 g/dL (14.0-18.0); O2 Tension (PaO2), arterial 96.8 mmHg (> 80.0); Potassium - ABG Lab 3.63 mmol/L (3.70-5.30); pH, Arterial 7.32 (7.35-7.45)
[2022-02-28 08:02] LABS: ALV-art Gradient 54.475 mmHg (0-20); Puncture Site RBA
[2022-02-28] MEDS: Famotidine/PF 20 mg/2ml Vial SLOW IVP SCH (09:51)
[2022-02-28] MEDS: Cefepime 1 GM in Sodium Chloride 0.9% 100 ML IVPB SCH (12:04)
[2022-02-28] MEDS ORDERED: Midodrine HCl 5 MG TAB PER TUBE SCH (15:00)
[2022-02-28] MEDS ORDERED: Morphine 4 MG/ML VIAL SLOW IVP PRN ×2 (15:59→16:07)
[2022-02-28] MEDS: Lorazepam 2 MG/ML VIAL SLOW IVP PRN ×2 (16:26→20:45)
[2022-03-01] MEDS: Lorazepam 2 MG/ML VIAL SLOW IVP PRN ×2 (02:26→06:41)
[2022-03-01 09:04] VITALS: BP 47/36; TEMP 97.3
== END 2022-03-01 13:03 | disposition hospice, home (50) | DRG 870 ==
LOC: ERS 06:47 → CCU 09:47 → T4-B 02-28 17:20
PROVIDERS: ADMIT Internal Medicine; ATTEND Internal Medicine
PROC: 3E03329 Introduction of Other Anti-infective into Peripheral Vein, Percutaneous Approach (ICD-10-PCS; principal; 2022-02-22)
PROC: 5A1955Z Respiratory Ventilation, Greater than 96 Consecutive Hours (ICD-10-PCS; 2022-02-22)
PROC: 5A1D70Z Performance of Urinary Filtration, Intermittent, Less than 6 Hours Per Day (ICD-10-PCS; 2022-02-22)
PROC: 0D9670Z Drainage of Stomach with Drainage Device, Via Natural or Artificial Opening (ICD-10-PCS; 2022-02-22)
PROC: 0BH17EZ Insertion of Endotracheal Airway into Trachea, Via Natural or Artificial Opening (ICD-10-PCS; 2022-02-22)
PROC: 5A09357 Assistance with Respiratory Ventilation, Less than 24 Consecutive Hours, Continuous Positive Airway Pressure (ICD-10-PCS; 2022-02-22)
PROC: 3E033XZ Introduction of Vasopressor into Peripheral Vein, Percutaneous Approach (ICD-10-PCS; 2022-02-23)
DX: A41.9 Sepsis, unspecified organism (principal); Z66 Do not resuscitate; Z51.5 Encounter for palliative care; J96.21 Acute and chronic respiratory failure with hypoxia; I50.43 Acute on chronic combined systolic (congestive) and diastolic (congestive) heart failure; J96.22 Acute and chronic respiratory failure with hypercapnia; R65.21 Severe sepsis with septic shock; J69.0 Pneumonitis due to inhalation of food and vomit; J18.9 Pneumonia, unspecified organism; J44.0 Chronic obstructive pulmonary disease with (acute) lower respiratory infection; K56.7 Ileus, unspecified; E11.51 Type 2 diabetes mellitus with diabetic peripheral angiopathy without gangrene; I25.10 Atherosclerotic heart disease of native coronary artery without angina pectoris; I25.5 Ischemic cardiomyopathy; I95.89 Other hypotension; E11.22 Type 2 diabetes mellitus with diabetic chronic kidney disease; D63.1 Anemia in chronic kidney disease; D69.6 Thrombocytopenia, unspecified; E11.43 Type 2 diabetes mellitus with diabetic autonomic (poly)neuropathy; K31.84 Gastroparesis; Z78.1 Physical restraint status; Z95.810 Presence of automatic (implantable) cardiac defibrillator; Z99.81 Dependence on supplemental oxygen; Z99.2 Dependence on renal dialysis; Z88.5 Allergy status to narcotic agent; Z88.0 Allergy status to penicillin; Z98.49 Cataract extraction status, unspecified eye; Z89.411 Acquired absence of right great toe; Z89.421 Acquired absence of other right toe(s); Z87.891 Personal history of nicotine dependence
CPT/HCPCS: 31500; 36415; 36416; 36600; 51702; 71045; 80048; 80053; 80202; 82040; 82533; 82553; 82805; 83605; 83735; 83880; 84145; 84484; 85025; 86704; 87040; 87081; 87340; 90935; 93005; 94002; 94003; 94660; 96365; 96367; 96375; G0257; J0171; J0692; J1610; J1644; J1815; J1940; J2060; J2250; J2270; J2704; J2765; J3010; J3370; J3475; J3490; P9047; S0028

== ENCOUNTER 2022-03-01 13:10 | Inpatient (IN) | payer OTHER ==
[2022-03-01] MEDS ORDERED: Morphine 4 MG/ML VIAL SLOW IVP PRN (13:43)
[2022-03-01] MEDS ORDERED: Zolpidem Tartrate 5 MG TAB PO PRN (13:45)
[2022-03-01] MEDS ORDERED: Ondansetron PF 4 MG/2 ML Vial IVP PRN (13:45)
[2022-03-01] MEDS ORDERED: Senokot S 8.6-50 MG TAB PO PRN (13:45)
[2022-03-01] MEDS ORDERED: Promethazine HCl 25 MG SUPP PR PRN (13:45)
[2022-03-01] MEDS ORDERED: Scopolamine 1.5 mg/72 hour Patch TOP PRN (13:45)
[2022-03-01] MEDS ORDERED: Haloperidol Lactate 5 MG/ML VIAL SLOW IVP PRN (13:45)
[2022-03-01] MEDS ORDERED: Acetaminophen 325 MG TAB PO PRN (13:45)
[2022-03-01] MEDS ORDERED: chlorproMAZINE HCl 50 MG/2 ML AMP IM PRN (13:45)
[2022-03-01] MEDS ORDERED: Acetaminophen 650 MG Suppository PR PRN (13:45)
[2022-03-01] MEDS ORDERED: Loperamide HCl 2 MG CAP PO PRN (13:45)
[2022-03-01] MEDS ORDERED: diphenhydrAMINE 50 MG/ML VIAL IVP PRN (13:45)
[2022-03-01] MEDS ORDERED: Milk Of Magnesia 30 ML UDCUP PO PRN (13:45)
[2022-03-01] MEDS: Lorazepam 2 MG/ML VIAL SLOW IVP PRN ×2 (14:11→21:00)
[2022-03-02] MEDS: Lorazepam 2 MG/ML VIAL SLOW IVP PRN ×4 (03:19→21:25)
[2022-03-02] MEDS: Hyoscyamine Sulfate SL 0.125 mg Tablet SL PRN (17:57)
[2022-03-03] MEDS: Hyoscyamine Sulfate SL 0.125 mg Tablet SL PRN (01:12)
[2022-03-03] MEDS: Lorazepam 2 MG/ML VIAL SLOW IVP PRN (01:48)
[2022-03-04] MEDS: Lorazepam 2 MG/ML VIAL SLOW IVP PRN (00:04)
[2022-03-04 07:41] VITALS: BP 66/43
[2022-03-05] MEDS: Lorazepam 2 MG/ML VIAL SLOW IVP PRN ×2 (02:11→22:43)
[2022-03-06 08:30] VITALS: TEMP 97.6
== END 2022-03-06 11:23 | disposition hospice, home (50) | DRG 951 ==
LOC: T4-B 13:10
PROVIDERS: ADMIT Family Medicine; ATTEND Family Medicine
DX: Z51.5 Encounter for palliative care (principal); J96.01 Acute respiratory failure with hypoxia; A41.9 Sepsis, unspecified organism; J18.9 Pneumonia, unspecified organism; N18.6 End stage renal disease; J44.0 Chronic obstructive pulmonary disease with (acute) lower respiratory infection; D64.9 Anemia, unspecified
CPT/HCPCS: J2060